=== PATIENT | female | born 1955 | race Two or more races ===

== ENCOUNTER 2019-12-17 08:36 | Outpatient (REF) | payer MEDICARE, MEDICAID, SELFPAY ==
[2019-12-17 09:42] LABS: MANUAL DIFF FLAG NO
[2019-12-17 09:44] LABS: Basophils Absolute Auto 0.1 X10*3/uL (0.0-0.2); Basophils Percent Auto 0.9 % (0-2); Eosinophils Absolute Auto 0.1 X10*3/uL (0.0-0.4); Eosinophils Percent Auto 0.9 % (0-4); Hematocrit 33.4 % (37-47); Hemoglobin 10.8 g/dl (12.0-16.0); Imm Gran Abs Auto 0.05 X10*3/uL (0.00-0.03); Imm Gran Pct Auto 0.7 % (0.0-0.4); Lymphocytes Absolute Auto 1.8 X10*3/uL (1.2-4.9); Lymphocytes Percent Auto 24.6 % (20-40); Mean Corpuscular HGB Conc 32.3 g/dl (31.0-35.0); Mean Corpuscular Hemoglobin 31.5 pg (27.0-33.0); Mean Corpuscular Volume 97.4 fL (80-98); Mean Platelet Volume 9.2 fL (9.4-12.3); Monocytes Absolute Auto 0.7 X10*3/uL (0.1-1.2); Monocytes Percent Auto 9.4 % (2-11); Neutrophils Absolute Auto 4.7 X10*3/uL (2.0-8.3); Neutrophils Percent Auto 63.5 % (45-73); Platelet Count 371 X10*3/uL (160-400); Red Blood Count 3.43 X10*6/uL (4.20-5.50); Red Cell Distribution Width 14.8 % (11.0-16.0); White Blood Count 7.4 X10*3/uL (4.8-10.8)
[2019-12-17 10:24] LABS: Anion Gap 13 (12-20); Blood Urea Nitrogen 21 mg/dL (9-16); Calcium 9.8 mg/dL (8.4-10.2); Carbon Dioxide 27 mmol/L (22-29); Chloride 104 mmol/L (96-108); Estimated Glomerular Filt Rate 41; Glucose Fasting 105 mg/dL (60-99); Potassium 4.6 mmol/l (3.3-5.1); Sodium 139 mmol/L (135-145)
[2019-12-17 10:25] LABS: Estimated Average Glucose 157 mg/dL; Hemoglobin A1c % 7.1 %
== END 2019-12-17 08:37 | disposition home or self-care (01) ==
LOC: HO.LAB 08:36
PROVIDERS: PCP Internal Medicine; Visit Provider Nurse Practitioner Family
DX: Z20.818 Contact with and (suspected) exposure to other bacterial communicable diseases (principal)
CPT/HCPCS: 36415; 80048; 83036; 85025

== ENCOUNTER 2020-04-15 08:35 | Outpatient (REF) | payer MEDICARE, MEDICAID, SELFPAY ==
[2020-04-15 09:20] LABS: MANUAL DIFF FLAG NO
[2020-04-15 09:24] LABS: Basophils Percent Auto 0.8 % (0-2); Eosinophils Absolute Auto 0.1 X10*3/uL (0.0-0.4); Eosinophils Percent Auto 1.8 % (0-4); Hematocrit 30.6 % (37-47); Hemoglobin 9.9 g/dl (12.0-16.0); Imm Gran Abs Auto 0.05 X10*3/uL (0.00-0.03); Imm Gran Pct Auto 1.3 % (0.0-0.4); Lymphocytes Absolute Auto 1.4 X10*3/uL (1.2-4.9); Lymphocytes Percent Auto 34.7 % (20-40); Mean Corpuscular HGB Conc 32.4 g/dl (31.0-35.0); Mean Corpuscular Hemoglobin 30.8 pg (27.0-33.0); Mean Corpuscular Volume 95.3 fL (80-98); Monocytes Absolute Auto 0.6 X10*3/uL (0.1-1.2); Monocytes Percent Auto 14.9 % (2-11); Neutrophils Absolute Auto 1.8 X10*3/uL (2.0-8.3); Neutrophils Percent Auto 46.5 % (45-73); Platelet Count 298 X10*3/uL (160-400); Red Blood Count 3.21 X10*6/uL (4.20-5.50); Red Cell Distribution Width 16.3 % (11.0-16.0)
[2020-04-15 09:56] LABS: Alanine Aminotransferase 12 U/L (0-31); Albumin Level 4.2 g/dL (3.5-5.0); Alkaline Phosphatase 138 U/L (39-117); Anion Gap 13 (12-20); Aspartate Amino Transferase 19 U/L (5-31); Bilirubin Total 0.5 mg/dL (0.0-1.0); Blood Urea Nitrogen 27 mg/dL (9-16); Calcium 9.7 mg/dL (8.4-10.2); Carbon Dioxide 26 mmol/L (22-29); Chloride 104 mmol/L (96-108); Cholesterol 225 mg/dL; Estimated Glomerular Filt Rate 42; Glucose Fasting 143 mg/dL (60-99); HDL Cholesterol 40 mg/dL; LDL Cholesterol Calculated 150 mg/dl; Potassium 4.3 mmol/L (3.3-5.1); Sodium 139 mmol/L (135-145); Total Protein 7.3 g/dL (6.5-8.0); Triglycerides 176 mg/dL
== END 2020-04-15 08:36 | disposition home or self-care (01) ==
LOC: HO.LAB 08:35
PROVIDERS: PCP Internal Medicine; Visit Provider Internal Medicine
DX: E11.9 Type 2 diabetes mellitus without complications (principal); C55 Malignant neoplasm of uterus, part unspecified; E78.00 Pure hypercholesterolemia, unspecified
CPT/HCPCS: 36415; 80053; 80061; 85025

== ENCOUNTER → 2020-09-17 08:49 | Outpatient (BNVA) | payer MEDICARE, MEDICAID, SELFPAY | PROVIDERS: PCP Internal Medicine; Visit Provider Urology | DX: N20.0 Calculus of kidney (principal) | CPT/HCPCS: 99202 ==

== ENCOUNTER 2021-01-19 06:51 | Outpatient (REF) | payer MEDICARE, MEDICAID, SELFPAY ==
[2021-01-19 07:09] LABS: MANUAL DIFF FLAG NO
[2021-01-19 07:19] LABS: Basophils Percent Auto 0.5 % (0-2); Eosinophils Absolute Auto 0.1 X10*3/uL (0.0-0.4); Eosinophils Percent Auto 1.2 % (0-4); Hematocrit 31.4 % (37.0-47.0); Hemoglobin 10.3 g/dl (12.0-16.0); Imm Gran Abs Auto 0.02 X10*3/uL (0.00-0.03); Imm Gran Pct Auto 0.3 % (0.0-0.4); Lymphocytes Absolute Auto 0.7 X10*3/uL (1.2-4.9); Lymphocytes Percent Auto 12.5 % (20-40); Mean Corpuscular HGB Conc 32.8 g/dl (31.0-35.0); Mean Corpuscular Hemoglobin 33.4 pg (27.0-33.0); Mean Corpuscular Volume 101.9 fL (80.0-98.0); Mean Platelet Volume 8.9 fL (9.4-12.3); Monocytes Absolute Auto 0.4 X10*3/uL (0.1-1.2); Monocytes Percent Auto 7.4 % (2-11); Neutrophils Absolute Auto 4.6 x10*3/uL (2.0-8.3); Neutrophils Percent Auto 78.1 % (45-73); Platelet Count 202 X10*3/uL (160-400); Red Blood Count 3.08 X10*6/uL (4.20-5.50); Red Cell Distribution Width 12.4 % (11.0-16.0); White Blood Count 5.9 X10*3/uL (4.8-10.8)
[2021-01-19 07:39] LABS: Alanine Aminotransferase 15 U/L (0-31); Alkaline Phosphatase 119 U/L (39-117); Anion Gap 13 (12-20); Aspartate Amino Transferase 24 U/L (5-31); Bilirubin Total 0.7 mg/dL (0.0-1.0); Blood Urea Nitrogen 26 mg/dL (9-16); Calcium 9.6 mg/dL (8.4-10.2); Carbon Dioxide 25 mmol/L (22-29); Chloride 105 mmol/L (96-108); Cholesterol 164 mg/dL; Estimated Glomerular Filt Rate 41; Glucose Fasting 135 mg/dL (60-99); HDL Cholesterol 47 mg/dL; LDL Cholesterol Calculated 104 mg/dl; Potassium 4.3 mmol/L (3.3-5.1); Sodium 139 mmol/L (135-145); Total Protein 6.8 g/dL (6.5-8.0); Triglycerides 68 mg/dL
[2021-01-19 09:18] LABS: Creatinine Urine 180.53 mg/dL; Microalbum/Creatinine Ratio Ur 32.6 ug/mg cr
[2021-01-23 13:20] LABS: Vitamin D 25-OH, D2 <4 ng/mL; Vitamin D 25-OH, D3 35 ng/mL; Vitamin D 25-OH, Total 35 ng/mL (30-100)
== END 2021-01-19 06:52 | disposition home or self-care (01) ==
LOC: HO.LAB 06:51
PROVIDERS: PCP Internal Medicine; Visit Provider Internal Medicine
DX: E11.65 Type 2 diabetes mellitus with hyperglycemia (principal); E78.5 Hyperlipidemia, unspecified; E55.9 Vitamin D deficiency, unspecified; D64.9 Anemia, unspecified; Z79.4 Long term (current) use of insulin
CPT/HCPCS: 36415; 80053; 80061; 82043; 82306; 85025

== ENCOUNTER 2021-05-23 11:03 | Emergency (ER) | payer MEDICARE, MEDICAID, SELFPAY ==
--- NOTE | ~2021-05-23 | US_ITS ---
EXAMINATION: US VENOUS ULTRASOUND WITH DOPPLER LOWER EXTREMITY, BILATERAL CLINICAL INFORMATION: Bilateral lower extremity swelling with history of uterine cancer. COMPARISON: None TECHNIQUE: Ultrasound of the deep veins is performed from the hip to the calf with compression sonography and color and pulse Doppler assessment. Spectral analysis with color-flow imaging is performed. FINDINGS: RIGHT: There is normal venous compression and respiratory variation and augmented flow. The visualized common femoral vein, superficial femoral vein, profunda femoral vein, popliteal vein, and the trifurcation region shows no evidence of deep venous thrombosis. There is no significant popliteal fossa cyst. No popliteal artery aneurysm. LEFT: There is normal venous compression and respiratory variation and augmented flow. The visualized common femoral vein, superficial femoral vein, profunda femoral vein, popliteal vein, and the trifurcation region shows no evidence of deep venous thrombosis. There is no significant popliteal fossa cyst. Artery aneurysm. US/US venous duplex LE BI IMPRESSION: No acute DVT demonstrated in the bilateral lower extremity.
--- NOTE | ~2021-05-23 | CT_ITS ---
EXAMINATION: CT ANGIOGRAM OF THE CHEST WITH AND WITHOUT CONTRAST (CT PULMONARY ANGIOGRAM FOR PE) CLINICAL INFORMATION: Reason for Exam lower extremity edema elevated D-dimer COMPARISON: None TECHNIQUE: Prior to contrast administration, noncontrast localization images were obtained. Subsequently, multidetector volumetric imaging was performed from the thoracic inlet to below the diaphragms following the administration of 80 mL Omnipaque 350 intravenous contrast. No contrast reaction reported Sagittal, coronal, and MIP oblique sagittal reformatted images were obtained on the CT workstation, uploaded to PACS, and reviewed. This CT examination was performed using dose optimization techniques as appropriate, variously including the following: *Automated exposure control *Adjustment of mA and/or kV according to patient size (this includes techniques or standardized protocols for targeted exams where dose is matched to indication/reason for exam; i.e. extremities or head) *Use of iterative reconstruction technique Total exam dose-length product 603 mGy-cm FINDINGS: QUALITY OF STUDY/CONTRAST BOLUS: Satisfactory. PULMONARY ARTERIES: No central or segmental pulmonary emboli. THORACIC AORTA: No aneurysm or dissection. LUNG: No focal consolidation, nodules or masses. PLEURA: No pleural effusion or pneumothorax. MEDIASTINUM: Normal heart size. No pericardial effusion. No hilar or mediastinal lymphadenopathy. No evidence of septal bowing or right heart strain. CHEST WALL/AXILLA: No axillary or internal mammary lymphadenopathy. OSSEOUS STRUCTURES: No acute or suspicious osseous abnormality. UPPER ABDOMEN: Unremarkable. No reflux of contrast into the hepatic veins to suggest elevated right heart pressures. CT/CT angio chest PE protocol IMPRESSION: No evidence of pulmonary embolism. Clear lungs and unremarkable mediastinum VTE: negative
--- NOTE | ~2021-05-23 | XR_ITS ---
EXAMINATION: XR CHEST CLINICAL INFORMATION: Lower extremity swelling COMPARISON: June 22, 2018 TECHNIQUE: 2 views of the chest were obtained. FINDINGS: No significant abnormality is noted involving the heart, lungs, mediastinum, bony thorax or soft tissues. XR/XR chest 2V IMPRESSION: No acute disease.
[2021-05-23 11:07] VITALS: BP 136/64; PULSE 71; RESP 18; TEMP 36.4; O2SAT 100; BMI 38.3
--- NOTE | 2021-05-23 11:38 | ECG_ITS ---
Test Reason : LOWER LEG SWELLING Blood Pressure : / mmHG Vent. Rate : 060 BPM Atrial Rate : 060 BPM P-R Int : 156 ms QRS Dur : 088 ms QT Int : 422 ms P-R-T Axes : 044 000 015 degrees QTc Int : 422 ms Normal sinus rhythm Normal ECG When compared with ECG of 22-JAN-2017 10:38, No significant change was found Referred By: Soraya Lamar Electronically Signed By:Scott Campbell
[2021-05-23 11:58] LABS: MANUAL DIFF FLAG NO
[2021-05-23 12:00] LABS: Basophils Percent Auto 0.2 % (0-2); Eosinophils Absolute Auto 0.1 X10*3/uL (0.0-0.4); Eosinophils Percent Auto 1.5 % (0-4); Hematocrit 29.4 % (37.0-47.0); Hemoglobin 9.6 g/dl (12.0-16.0); Imm Gran Abs Auto 0.01 X10*3/uL (0.00-0.03); Imm Gran Pct Auto 0.2 % (0.0-0.4); Lymphocytes Absolute Auto 0.6 X10*3/uL (1.2-4.9); Lymphocytes Percent Auto 13.6 % (20-40); Mean Corpuscular HGB Conc 32.7 g/dl (31.0-35.0); Mean Corpuscular Hemoglobin 33.4 pg (27.0-33.0); Mean Corpuscular Volume 102.4 fL (80.0-98.0); Mean Platelet Volume 8.9 fL (9.4-12.3); Monocytes Absolute Auto 0.4 X10*3/uL (0.1-1.2); Monocytes Percent Auto 9.7 % (2-11); Neutrophils Absolute Auto 3.1 x10*3/uL (2.0-8.3); Neutrophils Percent Auto 74.8 % (45-73); Platelet Count 191 X10*3/uL (160-400); Red Blood Count 2.87 X10*6/uL (4.20-5.50); Red Cell Distribution Width 12.2 % (11.0-16.0); White Blood Count 4.1 X10*3/uL (4.8-10.8)
--- NOTE | 2021-05-23 12:06 | ED_ITS ---
HPI - Extremity Problem General Chief complaint: Extremity Problem Stated complaint: both legs and feet swollen Time Seen by Provider: 05/23/21 11:19 Source: patient Mode of arrival: ambulatory Limitations: language barrier ( Maltese-speaking) History of Present Illness HPI Narrative: 66-year-old female with a past medical history of hypertension, diabetes type 2 on long-term current use of insulin, pure hypercholesterolemia, GERD, constipation and uterine cancer status post hysterectomy with radiation and ch emo x1 year ago presenting to the ED with complaints of bilateral lower extremity edema for the past 5 days and weight gain. She reports that years ago she remembers being on Lasix although she has not been on that for a while. She is unaware if she has a history of CHF. She denies any fevers, chills, dizziness, headaches, neck pain / stiffness, trouble swallowing or breathing, chest pain or shortness of breath, dyspnea on exertion, orthopnea, palpitation, paresthesias, nausea/vomiting/ diarrhea constipation, black or bloody stools, abdominal distention or abdominal pain, recent travel or sick contacts, recent immobilization or surgery, rashes, recent falls or any other symptoms complaints or concerns at this time. MD Complaint: extremity swelling Onset (ago): day(s) (5) Pain Consistency: constant Location: left, right and lower extremity Radiation: none Relieving factors: nothing Exacerbating factors: nothing Associated symptoms: denies other symptoms Context: other ( history of uterine cancer status post hysterectomy radiation and chemo x1 year ago in remission) Related Data Home Medications Medication Instructions Recorded Confirmed albuterol sulfate 90 mcg/actuation INHALATION 11/15/19 01/22/21 aerosol inhaler cholecalciferol (vitamin D3) 50 50 mcg PO DAILY 11/15/19 01/22/21 mcg (2,000 unit) capsule cyanocobalamin (vitamin B-12) 1,000 mcg PO DAILY 11/15/19 01/22/21 1,000 mcg tablet insulin glargine 100 unit/mL (3 60 unit SUBCUT QAM 11/15/19 01/22/21 mL) subcutaneous pen lancets 30 gauge #100 ea 11/15/19 01/22/21 pen needle, diabetic 32 gauge x #50 ea 11/15/19 01/22/21 1/4 prochlorperazine maleate 10 mg mg PO 11/15/19 01/22/21 tablet sennosides 8.6 mg-docusate sodium 1 - 2 tab PO DAILY 11/15/19 01/22/21 50 mg tablet Previous Rx's Medication Instructions Recorded loratadine 10 mg tablet 10 mg PO DAILY #30 tab 01/08/20 blood-glucose meter (FreeStyle #1 ea 04/22/20 [place]) lancets 28 gauge (FreeStyle #100 ea 04/22/20 Lancets) tramadol 50 mg tablet 50 mg PO .every 6 hours PRN 30 05/26/20 Days #120 tab atorvastatin 80 mg tablet 80 mg PO DAILY 90 Days #90 tab 11/04/20 blood sugar diagnostic (FreeStyle #100 ea 01/14/21 Test) lactulose 10 gram/15 mL oral 15 ml PO DAILY #473 ml 01/14/21 solution lancets 28 gauge (FreeStyle #100 ea 01/14/21 Lancets) blood-glucose meter (OneTouch #1 ea 01/22/21 Verio Flex meter) nystatin 100,000 unit/gram topical 1 appl TOPICAL DAILY 90 Days #15 g 01/22/21 cream albuterol sulfate 2.5 mg (3 mL) INHALATION TID 90 02/06/21 Days #810 ml aspirin 81 mg tablet,delayed 81 mg PO DAILY #30 tab 02/06/21 release fluticasone propionate 50 1 spray INTRANASAL DAILY 30 Days 02/06/21 mcg/actuation nasal #16 ml spray,suspension lisinopril 40 mg tablet 40 mg PO DAILY #30 tab 02/06/21 omeprazole 20 mg capsule,delayed 20 mg PO DAILY #30 cap 02/06/21 release ketoprofen 25 mg capsule 25 mg PO QID PRN 30 Days #120 cap 02/11/21 ezetimibe 10 mg tablet 10 mg PO DAILY 90 Days #90 tab 04/03/21 ferrous sulfate 325 mg (65 mg 325 mg PO DAILY 90 Days #90 tab 04/03/21 iron) tablet sennosides 8.6 mg tablet 17.2 mg PO BEDTIME PRN 90 Days #90 04/03/21 tab ondansetron 4 mg disintegrating 4 mg PO Q8H PRN #90 ea 05/02/21 tablet pioglitazone 45 mg tablet 45 mg PO DAILY #30 tab 05/02/21 Allergies Allergy/AdvReac Type Severity Reaction Status Date / Time naproxen Allergy Intermediate stomach Verified 05/23/21 11:11 upset pravastatin [PRAVASTATIN] Allergy Intermediate RASH Verified 05/23/21 11:11 Review of Systems Review of Systems: Constitutional : + weight gain, No Weight loss, No Fever, No Chills, No Night Sweats, No Fatigue, No Malaise ENT/Mouth : No Hearing loss, No Ear Pain, No Nasal Congestion, No Sinus Pain, No Hoarseness, No sore throat, No Rhinorrhea, No Swallowing Difficulty Eyes: No Eye Pain, No Swelling, No Redness, No Foreign Body, No Discharge, No Vi carie Changes Cardiovascular : No Chest Pain, No SOB, No Dyspnea on Exertion, No Orthopnea, No Edema, No Palpitations Respiratory : No Cough, No Sputum, No Wheezing, No Smoke Exposure, No Dyspnea Gastrointestinal : No Nausea, No Vomiting, No Diarrhea, No Constipation, No abdominal Pain, No Hematochezia, No Melena Genitourinary : no irregular bleeding, No Dysuria, No Urinary Frequency, No Hematuria, No Urinary Incontinence, No Urgency, No Flank Pain, No Urinary Flow Changes, No Hesitancy Musculoskeletal : +bilateral lower extremity edema, No joint pain, No Myalgias, No Joint Swelling Skin : No Skin Lesions, No rash Neuro : No Weakness, No Numbness, No Paresthesias, No Loss of Consciousness, No Dizziness, No Headache Psych : No Anxiety/Panic, No Depression, No SI/HI/AH/VH, No Social Issues, Heme/Lymph: No Bruising, No Bleeding,No Lymphadenopathy Endocrine : No Polyuria, No Polydipsia, No Temperature Intolerance Yes all other systems are reviewed and are negative [facility] Past Medical History Attestation statement: The following information was validated with the patient. Medical History Anxiety disorder Arthritis Asthma Chronic constipation Chronic kidney disease Diabetes mellitus Diverticulosis Essential hypertension GERD (gastroesophageal reflux disease) Hyperlipidemia Hypertension Lesion of pancreas Migraine headache Postmenopausal Pure hypercholesterolemia Renal calculi Thyroid nodule Type 2 diabetes mellitus Uterine cancer Surgical History History of section History of colonoscopy History of hernia repair History of hysterectomy for malignancy History of lithotripsy Hx of cholecystectomy Hx of endoscopy Family History Family History Father History of coronary artery disease History of diabetes mellitus, type II History of cancer Mother History of hypertension Social History Social History Housing: Apartment Alcohol intake: never Patient Tobacco Use Status: Former Tobacco user Tobacco use type: Cigarette e-Cigarette/Vaping Use: Never Used Second Hand Smoke Exposure: No Advance Directives: No Advance Directives Information Provided: Yes service: No Current occupational status: unemployed and disabled Physical Exam Vital Signs: Vital Signs: Last Vital Signs Temp 97.6 F 05/23/21 11:07 Pulse 57 05/23/21 12:10 Resp 18 05/23/21 12:10 BP 105/51 L 05/23/21 12:10 Pulse Ox 100 05/23/21 12:10 BMI result Body Mass Index 38.3 vital signs have been reviewed as normal and appeared to be correct. Blood pressure normal. Heart rate normal. Respiration rate normal. Temperature normal. Oxygen saturation normal. Appearance: Alert. Oriented X3. No acute distress. Head: Normal external exam. Normocephalic. Atraumatic. Eyes: PERRLA. EOMI. Conjunctiva and sclera normal. Eyelids normal. ENT: Pharynx normal. Uvula midline. Moist mucous membranes. No lesions/ulcerations or masses noted on the tongue. Normal voice. No trismus noted. No drooling noted. No muffled voice noted. Neck: Normal inspection. Neck supple. FROM. No adenopathy. Thyroid Normal. No tracheal deviation noted. No crepitus is noted. No meningeal signs. No neck mass noted. No signs of trauma noted. CVS: Normal heart rate and rhythm. Heart sound normal. Pulses normal throughout. No murmurs/rales/gallops. Respiratory: No respiratory distress. Painless inspiration. Breath sounds normal. No wheezes/rales/rhonchi noted. Chest nontender. No crepitus is noted. No signs of trauma noted. No accessory muscle usage noted or decreased air movement noted. No signs of trauma. Abdomen: Soft and nontender. Bowel sounds normal in all 4 quadrants. No distention noted. No organomegaly noted. No visible injury noted. Back: No CVA tenderness. Full range of motion noted. Nontender. No signs of trauma. Patient neuro intact bilaterally and distally on all 4 extremities. Patient's reflexes intact bilaterally and distally on all 4 extremities. No rashes/lesion/induration/fluctuance or signs of infection noted. Skin: Skin warm and dry. Normal skin color. Normal skin turgor. No rashes/lesions/lacerations noted. Extremities: Patient with bilateral +3 pitting edema To lower extremities. No calf tenderness is noted. Extremities exhibit normal range of motion and nontender. Neuro: Oriented X 3. No motor deficit. No sensory deficit. Reflexes normal. Normal steady gait. No focal neuro deficits noted. CN's II-XII intact bilaterally? Vascular: + radial pulses/+ 2 distal pedal pulses/+2 dorsalis pedis b/l. Normal cap refill. No cyanosis noted to upper extremity nails and lower extremity toes nails. Course Course Course Narrative: 11:40am - 66-year-old female with a past medical history of hypertension, diabetes type 2 on long-term current use of insulin, pure hypercholesterolemia, GERD, c onstipation and uterine cancer status post hysterectomy with radiation and chemo x1 year ago presenting to the ED with complaints of bilateral lower extremity edema for the past 5 days and weight gain. She reports that years ago she remembers being on Lasix although she has not been on that for a while. She is unaware if she has a history of CHF. Plan: Labs, EKG, chest x-ray, venous duplex ultrasound of bilateral extremity then re-evaluate. Reevaluation(s) Reevaluation #1: - labs reviewed patient with white blood cell count at 4 it appears that this is chronic for the patient. Mild baseline anemia with an H&H of 9.6/29.4 which is similar when compared to prior. D-dimer 377. BUN/creatinine 27/1.52 this is new when compared to prior. Random glucose 207. BNP 93. Total protein 6.3. Otherwise all other labs are within normal limits. Patient negative for COVID. EKG within normal limits no acute processes noted similar compared to prior. - Therefore due to normal BNP and patient with mild BENNIE will give a L of IV fluids. Awaiting chest x-ray, CT of chest for PE and bilateral duplex ultrasound of lower extremity. Time: 12:33 Reevaluation #2: -Sign out to HENRIQUE Molina pending chest x-ray/ CT of chest for PE and duplex ultrasound of bilateral lower extremity. Time: 12:56 MDM - Extremity (Nontraumatic) Lab Data Attestation: I reviewed the patient's lab results. Result diagrams: 05/23/21 11:52 05/23/21 11:52 Labs: Lab Results 05/23/21 05/23/21 05/23/21 Range/Units 11:52 11:52 11:52 WBC 4.1 L (4.8-10.8) X10*3/uL RBC 2.87 L (4.20-5.50) X10*6/uL Hgb 9.6 L (12.0-16.0) g/dl Hct 29.4 L (37.0-47.0) % MCV 102.4 H (80.0-98.0) fL MCH 33.4 H (27.0-33.0) pg MCHC 32.7 (31.0-35.0) g/dl RDW 12.2 (11.0-16.0) % Plt Count 191 (160-400) X10*3/uL MPV 8.9 L (9.4-12.3) fL Immature Gran % (Auto) 0.2 (0.0-0.4) % Neut % (Auto) 74.8 H (45-73) % Lymph % (Auto) 13.6 L (20-40) % Pickett % (Auto) 9.7 (2-11) % Eos % (Auto) 1.5 (0-4) % Baso % (Auto) 0.2 (0-2) % Lymph # (Auto) 0.6 L (1.2-4.9) X10*3/uL [place]ett # (Auto) 0.4 (0.1-1.2) X10*3/uL Eos # (Auto) 0.1 (0.0-0.4) X10*3/uL Baso # (Auto) 0.0 (0.0-0.2) X10*3/uL Abs Immat Gran (auto) 0.01 (0.00-0.03) X10*3/uL Absolute Neuts (auto) 3.1 (2.0-8.3) x10*3/uL Absolute Nucleated RBC 0.000 (0.0-0.012) X10*3/uL Nucleated RBC % (auto) 0.0 (0.0-0.2) /100WBC Hold Purple Top PT 11.9 (9.9-13.0) SEC INR 1.0 (0.9-1.1) D-Dimer High Sensitivty NG/ML Sodium 139 (135-145) mmol/L Potassium 4.2 (3.3-5.1) mmol/L Chloride 106 (96-108) mmol/L Carbon Dioxide 24 (22-29) mmol/L Anion Gap 13 (12-20) BUN 27 H (9-16) mg/dL Creatinine 1.52 H (0.5-1.4) mg/dL Estim Creat Clear Calc 42.5 Estimated GFR 34 Random Glucose 207 H (60-115) mg/dL Calcium 9.1 (8.4-10.2) mg/dL Magnesium 1.7 (1.6-2.6) mg/dL Total Bilirubin 0.7 (0.0-1.0) mg/dL AST 20 (5-31) U/L ALT 14 (0-31) U/L Alkaline Phosphatase 99 (39-117) U/L B-Natriuretic Peptide (<100) pg/mL Total Protein 6.3 L (6.5-8.0) g/dL Albumin 3.7 (3.5-5.0) g/dL COVID-19 (REECE) (Negative) COVID-19 Clin Com 05/23/21 05/23/21 05/23/21 Range/Units 11:52 11:52 11:52 WBC (4.8-10.8) X10*3/uL RBC (4.20-5.50) X10*6/uL Hgb (12.0-16.0) g/dl Hct (37.0-47.0) % MCV (80.0-98.0) fL MCH (27.0-33.0) pg MCHC (31.0-35.0) g/dl RDW (11.0-16.0) % Plt Count (160-400) X10*3/uL MPV (9.4-12.3) fL Immature Gran % (Auto) (0.0-0.4) % Neut % (Auto) (45-73) % Lymph % (Auto) (20-40) % Pickett % (Auto) (2-11) % Eos % (Auto) (0-4) % Baso % (Auto) (0-2) % Lymph # (Auto) (1.2-4.9) X10*3/uL [place]ett # (Auto) (0.1-1.2) X10*3/uL Eos # (Auto) (0.0-0.4) X10*3/uL Baso # (Auto) (0.0-0.2) X10*3/uL Abs Immat Gran (auto) (0.00-0.03) X10*3/uL Absolute Neuts (auto) (2.0-8.3) x10*3/uL Absolute Nucleated RBC (0.0-0.012) X10*3/uL Nucleated RBC % (auto) (0.0-0.2) /100WBC Hold Purple Top SEE NOTE PT (9.9-13.0) SEC INR (0.9-1.1) D-Dimer High Sensitivty 377 NG/ML Sodium (135-145) mmol/L Potassium (3.3-5.1) mmol/L Chloride (96-108) mmol/L Carbon Dioxide (22-29) mmol/L Anion Gap (12-20) BUN (9-16) mg/dL Creatinine (0.5-1.4) mg/dL Estim Creat Clear Calc Estimated GFR Random Glucose (60-115) mg/dL Calcium (8.4-10.2) mg/dL Magnesium (1.6-2.6) mg/dL Total Bilirubin (0.0-1.0) mg/dL AST (5-31) U/L ALT (0-31) U/L Alkaline Phosphatase (39-117) U/L B-Natriuretic Peptide 93 (<100) pg/mL Total Protein (6.5-8.0) g/dL Albumin (3.5-5.0) g/dL COVID-19 (REECE) (Negative) COVID-19 Clin Com 05/23/21 Range/Units 11:52 WBC (4.8-10.8) X10*3/uL RBC (4.20-5.50) X10*6/uL Hgb (12.0-16.0) g/dl Hct (37.0-47.0) % MCV (80.0-98.0) fL MCH (27.0-33.0) pg MCHC (31.0-35.0) g/dl RDW (11.0-16.0) % Plt Count (160-400) X10*3/uL MPV (9.4-12.3) fL Immature Gran % (Auto) (0.0-0.4) % Neut % (Auto) (45-73) % Lymph % (Auto) (20-40) % [place] % (Auto) (2-11) % Eos % (Auto) (0-4) % Baso % (Auto) (0-2) % Lymph # (Auto) (1.2-4.9) X10*3/uL [place] # (Auto) (0.1-1.2) X10*3/uL Eos # (Auto) (0.0-0.4) X10*3/uL Baso # (Auto) (0.0-0.2) X10*3/uL Abs Immat Gran (auto) (0.00-0.03) X10*3/uL Absolute Neuts (auto) (2.0-8.3) x10*3/uL Absolute Nucleated RBC (0.0-0.012) X10*3/uL Nucleated RBC % (auto) (0.0-0.2) /100WBC Hold Purple Top PT (9.9-13.0) SEC INR (0.9-1.1) D-Dimer High Sensitivty NG/ML Sodium (135-145) mmol/L Potassium (3.3-5.1) mmol/L Chloride (96-108) mmol/L Carbon Dioxide (22-29) mmol/L Anion Gap (12-20) BUN (9-16) mg/dL Creatinine (0.5-1.4) mg/dL Estim Creat Clear Calc Estimated GFR Random Glucose (60-115) mg/dL Calcium (8.4-10.2) mg/dL Magnesium (1.6-2.6) mg/dL Total Bilirubin (0.0-1.0) mg/dL AST (5-31) U/L ALT (0-31) U/L Alkaline Phosphatase (39-117) U/L B-Natriuretic Peptide (<100) pg/mL Total Protein (6.5-8.0) g/dL Albumin (3.5-5.0) g/dL COVID-19 (REECE) Negative (Negative) COVID-19 Clin Com See Note ECG Data Attestation EKG: I personally reviewed and interpreted this ECG as follows: ECG interpretation date: 05/23/21 ECG interpretation time: 11:52 Interpretation: Normal sinus rhythm with a ventricular rate of 60 with a normal SC interval normal QRS duration normal QT/ QTC interval. No acute ischemic change are noted. Similar compared to prior EKG 01/22/2017. Critical Care Time Critical Care Time Critical Care Time: Yes Total Critical Care Time: 60 Attestation: I personally attest to this time spent taking care of the patient Discharge Plan Discharge Clinical Impression: Bilateral edema of lower extremity, BENNIE (acute kidney injury) Patient Disposition: Still a Patient Prescriptions: No Action loratadine 10 mg tablet 10 mg PO DAILY Qty: 30 9RF tramadol 50 mg tablet 50 mg PO .every 6 hours PRN (Reason: pain) 30 Days Qty: 120 0RF atorvastatin 80 mg tablet 80 mg PO DAILY 90 Days Qty: 90 3RF aspirin 81 mg tablet,delayed release (DR/EC) 81 mg PO DAILY Qty: 30 11RF lisinopril 40 mg tablet 40 mg PO DAILY Qty: 30 6RF omeprazole 20 mg capsule,delayed release(DR/EC) 20 mg PO DAILY Qty: 30 6RF albuterol sulfate 2.5 mg /3 mL (0.083 %) solution for nebulization 2.5 mg inhalation TID 90 Days Qty: 810 1RF fluticasone propionate 50 mcg/actuation spray,suspension 1 spray intranasal DAILY 30 Days Qty: 16 3RF ketoprofen 25 mg capsule 25 mg PO QID PRN (Reason: pain) 30 Days Qty: 120 5RF sennosides 8.6 mg tablet 17.2 mg PO BEDTIME PRN (Reason: constipation) 90 Days Qty: 90 1RF ezetimibe 10 mg tablet 10 mg PO DAILY 90 Days Qty: 90 3RF ferrous sulfate 325 mg (65 mg iron) tablet 325 mg PO DAILY 90 Days Qty: 90 3RF ondansetron 4 mg tablet,disintegrating 4 mg PO Q8H PRN (Reason: for nausea/vomiting) Qty: 90 2RF pioglitazone 45 mg tablet 45 mg PO DAILY Qty: 30 5RF (DME) blood-glucose meter [OneTouch Verio Flex meter] Misc See Rx Instructions .Route Qty: 1 0RF Rx Instructions: As directed nystatin 100,000 unit/gram cream 1 appl topical DAILY 90 Days Qty: 15 1RF (DME) blood-glucose meter [FreeStyle [place]] Kit See Rx Instructions .ROUTE .MEDSUPPLY Qty: 1 0RF Rx Instructions: As directed (DME) lancets [FreeStyle Lancets] 28 gauge misc See Rx Instructions .ROUTE .MEDSUPPLY Qty: 100 0RF Rx Instructions: As directed (DME) FreeStyle Test Strip See Rx Instructions .ROUTE .MEDSUPPLY Qty: 100 10RF Rx Instructions: Use 1 test strip three times a day (DME) lancets [FreeStyle Lancets] 28 gauge misc See Rx Instructions .Route Qty: 100 10RF Rx Instructions: Use 1 lancet three times a day lactulose 10 gram/15 mL solution 15 ml PO DAILY Qty: 473 0RF prochlorperazine maleate 10 mg tablet PO 0RF cholecalciferol (vitamin D3) 50 mcg (2,000 unit) capsule 50 mcg PO DAILY 0RF (DME) pen needle, diabetic 32 gauge x 1/4 needle See Rx Instructions ea .ROUTE .MEDSUPPLY Qty: 50 0RF Rx Instructions: As directed sennosides-docusate sodium 8.6-50 mg tablet 1 - 2 tab PO DAILY 0RF (DME) lancets 30 gauge misc See Rx Instructions gauge .ROUTE .MEDSUPPLY Qty: 100 0RF Rx Instructions: As directed albuterol sulfate 90 mcg/actuation HFA aerosol inhaler inhalation 0RF Lantus Solostar U-100 Insulin 100 unit/mL (3 mL) insulin pen 60 unit subcut QAM 0RF cyanocobalamin (vitamin B-12) 1,000 mcg tablet 1,000 mcg PO DAILY 0RF
[2021-05-23 12:09] LABS: D Dimer High Sensitivity 377 NG/ML
[2021-05-23 12:10] VITALS: BP 105/51; PULSE 57; RESP 18; O2SAT 100
[2021-05-23 12:11] LABS: COVID-19 Test Negative (Negative)
[2021-05-23 12:16] LABS: Prothrombin Time 11.9 SEC (9.9-13.0)
[2021-05-23 12:18] LABS: Alanine Aminotransferase 14 U/L (0-31); Albumin Level 3.7 g/dL (3.5-5.0); Alkaline Phosphatase 99 U/L (39-117); Anion Gap 13 (12-20); Aspartate Amino Transferase 20 U/L (5-31); Bilirubin Total 0.7 mg/dL (0.0-1.0); Blood Urea Nitrogen 27 mg/dL (9-16); Calcium 9.1 mg/dL (8.4-10.2); Carbon Dioxide 24 mmol/L (22-29); Chloride 106 mmol/L (96-108); Creatinine Clr Calc Pharmacy 42.5; Estimated Glomerular Filt Rate 34; Glucose Random 207 mg/dL (60-115); Magnesium 1.7 mg/dL (1.6-2.6); Potassium 4.2 mmol/L (3.3-5.1); Sodium 139 mmol/L (135-145); Total Protein 6.3 g/dL (6.5-8.0)
[2021-05-23 12:24] LABS: B Type Natriuretic Peptide 93 pg/mL (<100)
[2021-05-23] MEDS: 0.9 % Sodium Chloride 1,000 ML 999 ML IVCONT (13:50)
[2021-05-23 13:58] LABS: Appearance Urine CLEAR; Color Urine YELLOW; Glucose Urine UA NEG (NEG); Leukocyte Esterase Urine 1+ (NEG); Nitrite Urine NEG (NEG); PH 5.5 (5.0-8.0); Specific Gravity - Urine 1.025 (1.005-1.025); UACC Culture Trigger YES; Urine Blood 1+ (NEG); Urine Ketones NEG (NEG); Urine Protein NEG (NEG-TRACE)
[2021-05-23 14:27] LABS: Bacteria Urine 2+ /LPF; Mucus Urine TRACE /LPF; Squamous Epithelial Cell Urine TRACE /LPF
[2021-05-23 15:06] VITALS: BP 124/67; PULSE 56; RESP 18; TEMP 36.7; O2SAT 100
[2021-05-23] MEDS: iohexoL 350 MG/ML 100 ML INFUS..BTL IV (16:29)
[2021-05-23 17:50] LABS: Glucose, Whole Blood 67 mg/dL (60-115)
[2021-05-23] MEDS: 0.9 % Sodium Chloride 1,000 ML 999 ML IV (18:05)
[2021-05-23 18:11] VITALS: BP 127/70; PULSE 54; RESP 16; O2SAT 100
[2021-05-23 18:14] LABS: Glucose, Whole Blood 79 mg/dL (60-115)
[2021-05-23 19:23] VITALS: BP 120/83; PULSE 63; RESP 14; TEMP 36.1; O2SAT 98
== END 2021-05-23 19:25 | disposition home or self-care (01) ==
PROVIDERS: Physician Assistant; Physician Assistant Medical; Emergency Provider Emergency Medicine; PCP Internal Medicine
DX: R60.0 Localized edema (principal); N17.9 Acute kidney failure, unspecified; N39.0 Urinary tract infection, site not specified; R79.1 Abnormal coagulation profile; I12.9 Hypertensive chronic kidney disease with stage 1 through stage 4 chronic kidney disease, or unspecified chronic kidney disease; E11.22 Type 2 diabetes mellitus with diabetic chronic kidney disease; N18.9 Chronic kidney disease, unspecified; J45.909 Unspecified asthma, uncomplicated; Z79.4 Long term (current) use of insulin; Z85.42 Personal history of malignant neoplasm of other parts of uterus; Z92.21 Personal history of antineoplastic chemotherapy; Z92.3 Personal history of irradiation; Z90.710 Acquired absence of both cervix and uterus
CPT/HCPCS: 36415; 71046; 71275; 80053; 81001; 81003; 82947; 83735; 83880; 85025; 85379; 85610; 87086; 87088; 87186; 87635; 93005; 93970; 96360; 96361; 99284; 99291; Q9967

== ENCOUNTER 2021-06-22 12:43 | Outpatient (REF) | payer MEDICARE, SELFPAY ==
--- NOTE | ~2021-06-22 | MM_ITS ---
EXAMINATION: MM SCREENING DIGITAL BREAST TOMOSYNTHESIS, BILATERAL CLINICAL INFORMATION: Screening. Asymptomatic. The lifetime risk of breast cancer based on the Tyrer-Cuzick Model is 7%. COMPARISON: Mammography: 03/15/2018, 02/11/2017, 11/06/2015 TECHNIQUE: Digital breast tomosynthesis is performed in both the craniocaudal and mediolateral oblique views along with computer-aided detection (CAD). Synthesized 2D images are generated from the tomosynthesis. Additional left CC and left MLO views are obtained. FINDINGS: The breasts are almost entirely fatty (ACR BI-RADS breast composition Category a). Background stromal markings are normal and similar to prior exams. No developing density. There are no significant masses, abnormal calcifications, or other abnormalities. The axilla and skin contours are unremarkable. MM/MM tomosynthesis screening BI IMPRESSION: No mammographic evidence of malignancy. ASSESSMENT: BI-RADS 1: Negative RECOMMENDATION: Routine annual mammography screening. This patient's information was entered into a reminder system with a target due date for their next mammogram.
== END 2021-06-22 12:44 | disposition home or self-care (01) ==
LOC: HO.MAMMO 12:43
PROVIDERS: PCP Internal Medicine; Visit Provider Internal Medicine
DX: Z12.31 Encounter for screening mammogram for malignant neoplasm of breast (principal)
CPT/HCPCS: 77063; 77067

== ENCOUNTER 2021-09-17 14:11 | Outpatient (REF) | payer MEDICARE, MEDICAID, SELFPAY ==
--- NOTE | ~2021-09-17 | US_ITS ---
EXAMINATION: US RETROPERITONEAL LIMITED (RENAL ONLY) CLINICAL INFORMATION: Calculus of kidney. COMPARISON: US retroperitoneal limited (renal only) 08/17/2019 and 12/18/2018. CT abdomen and pelvis without contrast 08/17/2019. XR abdomen KUB 06/09/2016 and 04/28/2016. TECHNIQUE: Real-time imaging of the kidneys. FINDINGS: RIGHT KIDNEY: 9.8 x 4.1 x 4.5 cm (SAG x AP x TRV). The kidney is normal in size, contour, and echogenicity. Renal cortical thickness is normal. No hydronephrosis. At the upper pole, a 7 mm nonobstructing calculus is seen. At the interpolar aspect, a 4 mm nonobstructing calculus is seen. At the lower pole, an 8 mm nonobstructing calculus is seen. LEFT KIDNEY: 10.3 x 4.9 x 4.2 cm (SAG x AP x TRV). The kidney is normal in size, contour, and echogenicity. Renal cortical thickness is normal. No renal calculi or hydronephrosis. At the interpolar aspect, a 6 mm exophytic, benign, simple cyst is seen. US/US renal BI IMPRESSION: 1. Nonobstructing right renal calculi redemonstrated. No left renal calculus is seen. No hydronephrosis is seen bilaterally. 2. A simple left renal cyst is seen.
== END 2021-09-17 14:12 | disposition home or self-care (01) ==
LOC: HO.US 14:11
PROVIDERS: Visit Provider Urology
DX: N20.0 Calculus of kidney (principal)
CPT/HCPCS: 76775

== ENCOUNTER → 2021-09-22 09:20 | Outpatient (BNVA) | payer MEDICARE, MEDICAID, SELFPAY | PROVIDERS: PCP Internal Medicine | DX: N20.0 Calculus of kidney (principal) | CPT/HCPCS: 99212 ==

== ENCOUNTER 2022-03-30 08:10 | Outpatient (REF) | payer MEDICARE, MEDICAID, SELFPAY ==
[2022-03-30 08:31] LABS: MANUAL DIFF FLAG NO
[2022-03-30 09:06] LABS: Basophils Percent Auto 0.6 % (0-2); Eosinophils Absolute Auto 0.1 X10*3/uL (0.0-0.4); Eosinophils Percent Auto 2.3 % (0-4); Hematocrit 32.5 % (37.0-47.0); Hemoglobin 10.4 g/dl (12.0-16.0); Imm Gran Abs Auto 0.02 X10*3/uL (0.00-0.03); Imm Gran Pct Auto 0.4 % (0.0-0.4); Lymphocytes Absolute Auto 0.8 X10*3/uL (1.2-4.9); Lymphocytes Percent Auto 15.6 % (20-40); Mean Corpuscular Hemoglobin 33.5 pg (27.0-33.0); Mean Corpuscular Volume 104.8 fL (80.0-98.0); Mean Platelet Volume 9.1 fL (9.4-12.3); Monocytes Absolute Auto 0.5 X10*3/uL (0.1-1.2); Monocytes Percent Auto 10.7 % (2-11); Neutrophils Absolute Auto 3.4 x10*3/uL (2.0-8.3); Neutrophils Percent Auto 70.4 % (45-73); Platelet Count 262 X10*3/uL (160-400); Red Cell Distribution Width 12.7 % (11.0-16.0); White Blood Count 4.9 X10*3/uL (4.8-10.8)
[2022-03-30 09:47] LABS: Anion Gap 12 (12-20); Blood Urea Nitrogen 28 mg/dL (9-16); Carbon Dioxide 25 mmol/L (22-29); Chloride 105 mmol/L (96-108); Potassium 4.4 mmol/L (3.3-5.1); Sodium 138 mmol/L (135-145)
[2022-03-30 09:48] LABS: Alanine Aminotransferase 24 U/L (0-31); Albumin Level 3.8 g/dL (3.5-5.0); Alkaline Phosphatase 107 U/L (39-117); Aspartate Amino Transferase 34 U/L (5-31); Bilirubin Total 0.8 mg/dL (0.0-1.0); Calcium 9.2 mg/dL (8.4-10.2); Cholesterol 156 mg/dL; Estimated Glomerular Filt Rate 35; Glucose Fasting 119 mg/dL (60-99); HDL Cholesterol 43 mg/dL; Iron 87 mcg/dL (30-160); LDL Cholesterol Calculated 98 mg/dl; Percent Iron Saturation 31 % (15-50); Total Iron Binding Capacity 284 mcg/dL (228-428); Total Protein 6.5 g/dL (6.5-8.0); Triglycerides 75 mg/dL; Unsaturated Iron Binding 197 ug/dL
[2022-03-30 09:49] LABS: Creatinine Urine 129.74 mg/dL; Microalbum/Creatinine Ratio Ur 70.9 ug/mg cr
[2022-03-30 10:14] LABS: Folate 6.1 ng/mL (> or = 4.0); Vitamin B12 163 pg/mL (200-900); Vitamin D 25-OH Total 20.4 ng/mL (>30)
== END 2022-03-30 08:11 | disposition home or self-care (01) ==
LOC: HO.LAB 08:10
PROVIDERS: PCP Internal Medicine; Visit Provider Internal Medicine
DX: E11.22 Type 2 diabetes mellitus with diabetic chronic kidney disease (principal); N18.30 Chronic kidney disease, stage 3 unspecified; E78.5 Hyperlipidemia, unspecified; E53.8 Deficiency of other specified B group vitamins; D64.9 Anemia, unspecified; E55.9 Vitamin D deficiency, unspecified
CPT/HCPCS: 36415; 80053; 80061; 82043; 82306; 82607; 82746; 83540; 85025

== ENCOUNTER 2022-06-04 12:07 | Outpatient (REF) | payer MEDICARE, MEDICAID, SELFPAY ==
--- NOTE | ~2022-06-04 | US_ITS ---
EXAMINATION: US RETROPERITONEAL LIMITED (RENAL ONLY) CLINICAL INFORMATION: Hypertension. Chronic kidney disease. COMPARISON: Bilateral renal ultrasound dated 09/17/2021. CT abdomen and pelvis without contrast dated 08/17/2019. Renals only ultrasound dated 08/17/2019. TECHNIQUE: Real-time imaging of the kidneys. FINDINGS: RIGHT KIDNEY: 9.2 x 5.4 x 5.2 cm (SAG x AP x TRV). The kidney is normal in size, contour, and echogenicity. Renal cortical thickness is normal. No focal parenchymal lesions or hydronephrosis. 6 mm nonobstructing calculus in the midpole. 7 mm nonobstructing calculus in the upper pole. LEFT KIDNEY: 10.4 x 4.9 x 4.7 cm (SAG x AP x TRV). The kidney is normal in size, contour, and echogenicity. Renal cortical thickness is normal. No hydronephrosis. 9 mm simple cyst in the mid pole. No imaging follow-up is recommended. 7 mm nonobstructing calculus in the upper pole. US/US renal BI IMPRESSION: No hydronephrosis. Bilateral renal calculi.
== END 2022-06-04 12:08 | disposition home or self-care (01) ==
LOC: HO.US 12:07
PROVIDERS: Visit Provider Internal Medicine Nephrology
DX: E11.22 Type 2 diabetes mellitus with diabetic chronic kidney disease (principal); I12.9 Hypertensive chronic kidney disease with stage 1 through stage 4 chronic kidney disease, or unspecified chronic kidney disease; N18.31 Chronic kidney disease, stage 3a; R80.9 Proteinuria, unspecified
CPT/HCPCS: 76775

== ENCOUNTER 2022-06-30 12:50 | Outpatient (REF) | payer MEDICARE, MEDICAID, SELFPAY ==
--- NOTE | ~2022-06-30 | MM_ITS ---
EXAMINATION: MM SCREENING DIGITAL BREAST TOMOSYNTHESIS, BILATERAL CLINICAL INFORMATION: Screening. Asymptomatic. The lifetime risk of breast cancer based on the Tyrer-Cuzick Model is 8%. COMPARISON: Mammography: 06/22/2021, 03/15/2018, 02/11/2017 TECHNIQUE: Digital breast tomosynthesis is performed in both the craniocaudal and mediolateral oblique views along with computer-aided detection (CAD). Synthesized 2D images are generated from the tomosynthesis. Additional right MLO view is provided. FINDINGS: The breasts are almost entirely fatty (ACR BI-RADS breast composition Category a). There are no significant masses, abnormal calcifications, or other abnormalities. No developing density or architectural abnormality. Background stromal markings are normal. The axilla and skin contours are unremarkable. MM/MM tomosynthesis screening BI IMPRESSION: No mammographic evidence of malignancy. ASSESSMENT: BI-RADS 1: Negative RECOMMENDATION: Routine annual mammography screening. This patient's information was entered into a reminder system with a target due date for their next mammogram.
== END 2022-06-30 12:51 | disposition home or self-care (01) ==
LOC: HO.MAMMO 12:50
PROVIDERS: PCP Internal Medicine; Visit Provider Internal Medicine
DX: Z12.31 Encounter for screening mammogram for malignant neoplasm of breast (principal)
CPT/HCPCS: 77063; 77067

== ENCOUNTER 2022-09-27 09:50 | Outpatient (REF) | payer OTHER, SELFPAY ==
--- NOTE | ~2022-09-27 | US_ITS ---
EXAMINATION: US RETROPERITONEAL LIMITED (RENAL ONLY) CLINICAL INFORMATION: Calculus of kidney. COMPARISON: Bilateral renal ultrasound dated 06/04/2022 and 09/17/2021. CT abdomen and pelvis without contrast dated 08/17/2019. KUB dated 11/22/2018 and 06/09/2016. MR abdomen without and with contrast dated 12/31/2009. TECHNIQUE: Real-time imaging of the kidneys. FINDINGS: RIGHT KIDNEY: 9.5 x 3.5 x 3.6 cm (SAG x AP x TRV). The kidney is normal in size, contour, and echogenicity. Renal cortical thickness is normal. 2 stones measuring 6 x 3 x 5 mm in the upper pole and 5 x 4 mm in the midpole. No focal parenchymal lesions or hydronephrosis. LEFT KIDNEY: 9.3 x 3.8 x 4.0 cm (SAG x AP x TRV). The kidney is normal in size, and echogenicity. Renal cortical thickness is normal. Renal contour slightly irregular or nodular. No calculi or focal parenchymal lesions. No hydronephrosis. US/US renal BI IMPRESSION: Right renal stones. No left renal stone appreciated.
== END 2022-09-27 09:51 | disposition home or self-care (01) ==
LOC: HO.US 09:50
PROVIDERS: PCP Internal Medicine; Visit Provider Nurse Practitioner Family
DX: N20.0 Calculus of kidney (principal)
CPT/HCPCS: 76775

== ENCOUNTER 2022-10-06 10:07 | Outpatient (REF) | payer OTHER, SELFPAY ==
--- NOTE | ~2022-10-06 | MM_ITS ---
EXAMINATION: BONE DENSITOMETRY CLINICAL INDICATION: Unspecified menopausal and perimenopausal disorder. COMPARISON: This is the patient's baseline examination. TECHNIQUE: Using a [employer] DXA System (software version: 13.1) manufactured by [employer], dual-energy x-ray absorptiometry was performed of the lumbar spine and left hip. The images are of good technical quality. Summary results are attached. FINDINGS: LEFT FEMUR, NECK: BMD 0.967 g/cm2, Z-score 0.4, T-score -0.5, normal. LEFT FEMUR, TOTAL: BMD 1.070 g/cm2, Z-score 1.1, T-score 0.5, normal. AP SPINE L1-L4: BMD 1.286 g/cm2, Z-score 1.4, T-score 0.9, normal. IDENTIFIED RISK FACTORS: Early menopause, secondary osteoporosis, bilateral oophorectomy, hysterectomy, renal, osteoporosis. HISTORY OF FRACTURE: None listed. MEDICATIONS: None listed. MM/XR DEXA axial skeleton IMPRESSION: 1. DIAGNOSIS: Normal bone density based on the lowest T-score value of -0.5 in the femoral neck applying World Health Organization criteria. 2. 10-YEAR FRACTURE RISK PREDICTION, FRAX: According to the guidelines, FRAX calculation should only be performed on patients in the osteopenia bone density category. Therefore, FRAX was not performed on this patient. 3. Treatment Recommendations: NOF guidelines recommend consideration for treatment in postmenopausal women and men age 50 and older presenting with the following: -A hip or vertebral (clinical or morphometric) fracture. -T-score less than or equal to -2.5 at the femoral neck or spine after appropriate evaluation to exclude secondary causes. -Low bone mass at the hip or spine and a 10-year fracture probability by FRAX of greater than or equal to 3% for hip fracture or greater than or equal to 20% for major osteoporotic fracture based on the [place] adapted WHO algorithm. 4. Other Recommendations: All treatment decisions require clinical judgment and consideration of individual patient factors, including patient preferences, comorbidities, previous drug use, risk factors not captured in the FRAX model (e.g. frailty, falls, vitamin D deficiency, increased bone turnover, interval significant decline in bone density) and possible under or overestimation of fracture risk by FRAX. FUTURE SCAN RECOMMENDATION: People with diagnosed cases of osteoporosis or at high risk for fracture should have regular bone mineral density tests. For patients eligible for Medicare, routine testing is allowed once every 2 years. The testing frequency can be increased to one year for patients who have rapidly progressing disease, those who are receiving or discontinuing medical therapy to restore bone mass, or have additional risk factors.
== END 2022-10-06 10:08 | disposition home or self-care (01) ==
LOC: HO.MAMMO 10:07
PROVIDERS: PCP Internal Medicine; Visit Provider Internal Medicine
DX: Z13.820 Encounter for screening for osteoporosis (principal); Z78.0 Asymptomatic menopausal state
CPT/HCPCS: 77080

== ENCOUNTER → 2022-10-06 10:30 | Outpatient (BNV) | payer OTHER, SELFPAY | PROVIDERS: PCP Internal Medicine; Visit Provider Radiology Diagnostic Radiology | DX: N95.9 Unspecified menopausal and perimenopausal disorder (principal) | CPT/HCPCS: 77080 ==

== ENCOUNTER 2022-10-15 09:08 | Outpatient (AMB) | payer OTHER, SELFPAY ==
--- NOTE | 2022-10-15 09:59 | MHC.OFFVIS ---
Intake Intake Visit Reasons: stones yearly follow up/US(set) Intake Note: Patient is present for follow up ultrasound/kidney stones (imaging 09/27/22) Urology Medications: Vitamin B6 Blood Thinner: Aspirin Bin Worker Required: Yes Bin Worker Name: NICOLETTE Accompanied by: Self / Same As Patient Allergies naproxen Allergy (Intermediate, Verified 10/15/22 10:28) stomach upset pravastatin [PRAVASTATIN] Allergy (Intermediate, Verified 10/15/22 10:28) RASH Medication List - Last Reconciled 10/15/22 by OCHOA Patricio- albuterol sulfate 2.5 mg (3 mL) inhalation TID 90 days alcohol swabs (Alcohol Prep Pads) 1 pad topical BID 90 days aspirin 81 mg PO DAILY atorvastatin 80 mg PO DAILY 90 days blood sugar diagnostic (dooyoo Verio test strips) Use 1 test strip twice a day blood-glucose meter (FreeStyle Lite Meter kit) tid blood-glucose meter (RenrendaiTouch Verio Flex Meter) As directed diclofenac sodium 1% (Arthritis Pain (diclofenac)) 4 grams topical QID PRN 30 days ezetimibe 10 mg PO DAILY 90 days ferrous sulfate 325 mg PO DAILY 90 days fluticasone propionate 50 mcg/actuation 1 spray intranasal DAILY 30 days insulin glargine 60 units subcut QAM ketoprofen 25 mg PO QID PRN 30 days lactulose 15 mL PO DAILY lancets Use 1 lancet twice a day lisinopril 40 mg PO DAILY loratadine 10 mg PO DAILY nystatin 1 appl topical DAILY 90 days omeprazole 20 mg PO DAILY ondansetron 4 mg PO Q8H PRN pen needle, diabetic As directed pioglitazone 45 mg PO DAILY prochlorperazine maleate mg PO sennosides 17.2 mg (2 x 8.6 mg) PO BEDTIME PRN 90 days tramadol 50 mg PO .every 6 hours PRN 30 days Ventolin HFA 90 mcg/actuation (albuterol sulfate) 2 puffs inhalation Q6H PRN 30 days NS HPI HPI Comments History of Present Illness Details Vero is a very pleasant 67-year-old [place]-speaking female patient of Dr. Tapia. She has a past medical history of chronic kidney disease stage III, vitamin B12 deficiency, renal calculi, diabetes mellitus, hypertension, uterine cancer, diverticulosis, chronic constipation, GERD, hyperlipidemia, migraines, arthritis, anxiety, and asthma. She presents to the office today for follow-up of her nephrolithiasis. In discussion with the patient today she reports to be doing and feeling well. Recent renal imaging results reviewed with the patient today. Right kidney with 2 stones measuring 5 mm in the upper pole and 4 mm in the mid pole. No lesions or hydronephrosis noted. Left kidney with no calculi, lesions, and or hydronephrosis noted. When asked patient reports to be drinking plenty of water daily. She discusses adding lemon juice to water daily. Patient discusses having previous renal calculi surgical interventions in the past with Dr. Anderson. She discusses following a diabetic diet. When asked she denies urinary urgency, urinary frequency, incontinence, nocturia, hematuria, dysuria, foul smelling urine, changes to urinary stream, flank pain, fever, and or chills. Discussed surgical intervention versus surveillance monitoring; discussed risks and benefits. Patient denies any issues at this time and would like to continue with surveillance monitoring. She is happy with her current voiding parameters. In office urinalysis results reviewed with the patient. [facility] Medical History Breast cancer screening by mammogram Physical exam CKD (chronic kidney disease) stage 3, GFR 30-59 ml/min B12 deficiency Postmenopausal Renal calculi Diabetes mellitus Essential hypertension Uterine cancer Pure hypercholesterolemia Lesion of pancreas Diverticulosis Chronic constipation GERD (gastroesophageal reflux disease) Hyperlipidemia Thyroid nodule Chronic kidney disease Migraine headache Arthritis Anxiety disorder Asthma Type 2 diabetes mellitus Hypertension Surgical History History of hysterectomy for malignancy Hx of endoscopy History of hernia repair Hx of cholecystectomy History of section History of colonoscopy History of lithotripsy Family History Father History of coronary artery disease History of diabetes mellitus, type II History of cancer Mother History of hypertension Social History Housing: Apartment Alcohol intake: never Patient Tobacco Use Status: Former Tobacco user Tobacco use type: Cigarette e-Cigarette/Vaping Use: Never Used Second Hand Smoke Exposure: No service: No Current occupational status: unemployed and disabled Cognitive needs: Yes Hearing needs: No Vision needs: Yes Review of Systems Eyes Reports no additional complaints ENT Reports no additional complaints Card Reports as per [facility] Resp Reports as per [facility] GI Reports as per [facility] Reports as per [facility] Musc Reports as per [facility] Neuro Reports as per [facility] Psych Reports as per [facility] Endo Reports as per [facility] Physical Exam Const General: cooperative, healthy appearing, comfortable, no acute distress, well developed, alert and awake Nutritional Appearance: overweight Orientation/consciousness: patient oriented x3 Limitations: no limitations HEENT Head: Yes normal to inspection, Yes normocephalic and Yes atraumatic Ears: hearing grossly normal bilaterally Eyes General: appearance normal, both eyes and all related structures Neck Neck: Yes normal visual inspection and Yes trachea midline Chest Chest palpation & inspection: normal inspection of the chest Resp Effort & Inspection: normal respiratory effort and able to speak in complete sentences Cardio Rate: regular rate GI Inspection: Yes normal to inspection General: Yes no CVA tenderness Back/Spine/Pelvis Back: no CVA tenderness Skin General skin exam: no rashes or lesions noted Neuro General: patient oriented x3 Extrem General: Yes normal to inspection Psych Appearance: grossly normal and well kempt Mental Status: mental status grossly normal Speech and movement: Normal speech and movement present and Clear speech present Affect: normal affect Attitude: cooperative Thought process: Normal thought process present Thought content: Normal thought content present Insight: Fair insight present (Psych) Judgement: Fair judgement present (Psych) Results AMB Urinalysis, Automated UA Leukoctes 70 Nitesh/uL Last Edit by Mary Evans on 10/15/22 10:12 UA Nitrite Last Edit by Mary Evans on 10/15/22 10:12 UA Urobilinogen 0.2 mg/dL Last Edit by Mary Evans on 10/15/22 10:12 UA Protein 30 mg/dL Last Edit by Genomedlucas Evans on 10/15/22 10:12 UA pH 5.5 Last Edit by Mary Evans on 10/15/22 10:12 UA Blood 0 Theodore/uL Last Edit by Mary Evans on 10/15/22 10:12 UA Specific [place] 1.030 Last Edit by SincereLocalitylucas Evans on 10/15/22 10:12 UA Ketone Last Edit by TranslateMediaglenda Evans on 10/15/22 10:12 UA Bilirubin 0 mg/dL Last Edit by Mary Evans on 10/15/22 10:12 UA Glucose 0 mg/dL Last Edit by Mary Evans on 10/15/22 10:12 Results Reviewed Results Reviewed: Laboratory Last Values Urine pH (Auto) 5.5 10/15/22 10:03 Specific [place] (Auto) 1.030 10/15/22 10:03 Urine Protein (Auto) 30 mg/dL 10/15/22 10:03 Glucose (UA)(Auto) 0 mg/dL 10/15/22 10:03 Urine Blood (Auto) 0 Theodore/uL 10/15/22 10:03 Urine Bilirubin (Auto) 0 mg/dL 10/15/22 10:03 Urine Urobilinogen (Auto) 0.2 mg/dL 10/15/22 10:03 Leukocyte Esterase (Auto) 70 Nitesh/uL 10/15/22 10:03 Date of Service: 09/27/22 US RETROPERITONEAL LIMITED (RENAL ONLY) FINDINGS: RIGHT KIDNEY: 9.5 x 3.5 x 3.6 cm (SAG x AP x TRV). The kidney is normal in size, contour, and echogenicity. Renal cortical thickness is normal. 2 stones measuring 6 x 3 x 5 mm in the upper pole and 5 x 4 mm in the midpole. No focal parenchymal lesions or hydronephrosis. LEFT KIDNEY: 9.3 x 3.8 x 4.0 cm (SAG x AP x TRV). The kidney is normal in size, and echogenicity. Renal cortical thickness is normal. Renal contour slightly irregular or nodular. No calculi or focal parenchymal lesions. No hydronephrosis. IMPRESSION: Right renal stones. No left renal stone appreciated Assessment & Plan Assessment & Plan (1) Renal calculi: Code(s): N20.0 - Calculus of kidney Plan In office urinalysis results reviewed with the patient today; as noted above. Recent renal imaging results reviewed with the patient today. Discussed, stress, and encouraged on the importance of drinking plenty of water daily. Discussed continuing to manage diabetes for overall health and well-being. Start vitamin B6 as discussed and prescribed. Continue adding 1 oz of lemon juice to water daily. Renal ultrasound in 1 year. Follow-up in 1 year with imaging to be completed prior; or sooner with any issues, concerns, and or questions. Orders: Orders AMB Urinalysis Automated 10/15/22 Z13.9 - Encounter for screening, unspecified US renal BI 364 Days N20.0 - Calculus of kidney Medications: New pyridoxine (vitamin B6) 100 mg PO DAILY 90 days 90 tabs 3RF Patient Instructions: The patient had an opportunity to ask questions regarding the treatment plan. All questions were answered. Physical exam, labs, and imaging were discussed and reviewed in detail. As well as risks, benefits, and discussion of treatment choices. No major barriers to understanding were identified. The patient expressed understanding and agreement with the above treatment plan. The patient was made aware they should contact our office by phone for worsening of their current condition, the appearance of new symptoms, or with any questions or concerns. Compliance is encouraged with any medications and follow up testing that is ordered. It is a privilege to be allowed the opportunity to participate in? your urological care.? Again, if you have any questions or concerns If you have any questions or concerns please do not hesitate to contact me. The office is [phone]. This note is constructed using voice recognition software. While every effort has been made to ensure accuracy eligibility and occupancy interviewer errors may have been included. Yours sincerely, JORY Patricio Coding Level of Care Code Est Pt Level 4 (91394) Diagnoses Renal calculi N20.0
== END 2022-10-15 10:22 | disposition home or self-care (01) ==
PROVIDERS: PCP Internal Medicine; Visit Provider Nurse Practitioner Family
DX: Z13.9 Encounter for screening, unspecified (principal)
CPT/HCPCS: 99214

== ENCOUNTER → 2022-10-15 09:08 | Outpatient (BNVA) | payer OTHER, SELFPAY | PROVIDERS: PCP Internal Medicine; Visit Provider Nurse Practitioner Family | DX: N20.0 Calculus of kidney (principal) | CPT/HCPCS: 81003; 99212 ==

== ENCOUNTER 2022-11-04 08:15 | Outpatient (REF) | payer OTHER, SELFPAY ==
[2022-11-04 08:45] LABS: MANUAL DIFF FLAG NO
[2022-11-04 08:49] LABS: Basophils Percent Auto 0.6 % (0-2); Eosinophils Absolute Auto 0.1 X10*3/uL (0.0-0.4); Eosinophils Percent Auto 1.5 % (0-4); Hematocrit 33.1 % (37.0-47.0); Imm Gran Abs Auto 0.03 X10*3/uL (0.00-0.03); Imm Gran Pct Auto 0.5 % (0.0-0.4); Lymphocytes Absolute Auto 0.8 X10*3/uL (1.2-4.9); Lymphocytes Percent Auto 12.1 % (20-40); Mean Corpuscular HGB Conc 33.2 g/dl (31.0-35.0); Mean Corpuscular Hemoglobin 32.9 pg (27.0-33.0); Mean Corpuscular Volume 99.1 fL (80.0-98.0); Mean Platelet Volume 9.3 fL (9.4-12.3); Monocytes Absolute Auto 0.4 X10*3/uL (0.1-1.2); Monocytes Percent Auto 6.4 % (2-11); Neutrophils Absolute Auto 5.1 x10*3/uL (2.0-8.3); Neutrophils Percent Auto 78.9 % (45-73); Platelet Count 253 X10*3/uL (160-400); Red Blood Count 3.34 X10*6/uL (4.20-5.50); Red Cell Distribution Width 12.7 % (11.0-16.0); White Blood Count 6.5 X10*3/uL (4.8-10.8)
[2022-11-04 09:22] LABS: Alanine Aminotransferase 11 U/L (0-31); Albumin Level 3.9 g/dL (3.5-5.0); Alkaline Phosphatase 151 U/L (39-117); Anion Gap 13 (12-20); Aspartate Amino Transferase 18 U/L (5-31); Bilirubin Total 0.7 mg/dL (0.0-1.0); Blood Urea Nitrogen 20 mg/dL (9-16); Calcium 8.2 mg/dL (8.4-10.2); Carbon Dioxide 26 mmol/L (22-29); Chloride 106 mmol/L (96-108); Cholesterol 148 mg/dL (<200); Estimated Glomerular Filt Rate 40; Glucose Fasting 155 mg/dL (60-99); HDL Cholesterol 39 mg/dL (>40); Iron 55 mcg/dL (30-160); LDL Cholesterol Calculated 97 mg/dL (<100); Percent Iron Saturation 24 % (15-50); Potassium 4.1 mmol/L (3.3-5.1); Sodium 141 mmol/L (135-145); Total Iron Binding Capacity 229 mcg/dL (228-428); Triglycerides 64 mg/dL (<150); Unsaturated Iron Binding 174 ug/dL
[2022-11-04 09:51] LABS: Folate 4.6 ng/mL (> or = 4.0); Vitamin B12 232 pg/mL (200-900)
[2022-11-04 11:37] LABS: Creatinine Urine 169.38 mg/dL; Microalbum/Creatinine Ratio Ur 86.7 ug/mg cr (<30)
[2022-11-10 14:18] LABS: Parietal Cell Antibody <=20.0 Unit (<=20.0)
[2022-11-10 21:18] LABS: Intrinsic Factor Antibodies Negative (Negative)
== END 2022-11-04 08:16 | disposition home or self-care (01) ==
LOC: HO.LAB 08:15
PROVIDERS: PCP Internal Medicine; Visit Provider Internal Medicine
DX: N18.30 Chronic kidney disease, stage 3 unspecified (principal); E11.9 Type 2 diabetes mellitus without complications; D64.9 Anemia, unspecified; E55.9 Vitamin D deficiency, unspecified; E53.8 Deficiency of other specified B group vitamins; E78.5 Hyperlipidemia, unspecified
CPT/HCPCS: 36415; 80053; 80061; 82043; 82306; 82570; 82607; 82746; 83516; 83540; 85025; 86340

== ENCOUNTER 2022-11-09 09:11 | Outpatient (AMB) | payer OTHER, MEDICAID, SELFPAY ==
[2022-11-09 09:16] VITALS: BP 120/70; BMI 40.4
--- NOTE | 2022-11-09 09:16 | A.OFFPC_ITS ---
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 Health Education Coordinator Required: No Accompanied by: Self / Same As Patient Allergies naproxen Allergy (Intermediate, Verified 11/09/22 09:32) stomach upset pravastatin [PRAVASTATIN] Allergy (Intermediate, Verified 11/09/22 09:32) RASH Medication List - Last Reconciled 11/09/22 by Caro Guevara MD albuterol sulfate 2.5 mg (3 mL) inhalation TID 90 days alcohol swabs (Alcohol Prep Pads) 1 pad topical BID 90 days aspirin 81 mg PO DAILY atorvastatin 80 mg PO DAILY 90 days blood sugar diagnostic (H5uch Verio test strips) Use 1 test strip twice a day blood-glucose meter (FreeStyle Lite Meter kit) tid blood-glucose meter (OneTouch Verio Flex Meter) As directed diclofenac sodium 1% (Arthritis Pain (diclofenac)) 4 grams topical QID PRN 30 days ferrous sulfate 325 mg PO DAILY 90 days fluticasone propionate 50 mcg/actuation 1 spray intranasal DAILY 30 days insulin glargine 60 units subcut QAM lactulose 15 mL PO DAILY lancets Use 1 lancet twice a day lisinopril 40 mg PO DAILY loratadine 10 mg PO DAILY nystatin 1 appl topical DAILY 90 days omeprazole 20 mg PO DAILY ondansetron 4 mg PO Q8H PRN pen needle, diabetic As directed pioglitazone 45 mg PO DAILY pyridoxine (vitamin B6) 100 mg PO DAILY 90 days sennosides 17.2 mg (2 x 8.6 mg) PO BEDTIME PRN 90 days Ventolin HFA 90 mcg/actuation (albuterol sulfate) 2 puffs inhalation Q6H PRN 30 days NS Tobacco use date assessed: 03/25/22 Fall risk assessment: No Falls in past year Last assessed Fall Risk: 11/09/22 Dental Screening Dental Screen Date: 11/09/22 Did you have a dental visit in the last 12 months?: No Did you have a dental problem in the last 6 months where you did not have access to dental care?: No Was dental information given to patient?: Patient has dentist HPI HPI Comments History of Present Illness Details This is a 67-year-old female with diabetes mellitus type 2, hypertension, hyperlipidemia, morbid obesity and microalbuminuria that comes today for follow-up her conditions. A1c within goal. Blood pressure stable. LDL close to goal and was advised to do a low-cholesterol diet. She is morbidly obese with a BMI of 40.4 and declines weight loss surgery. Was advised to diet and exercise as tolerated to reach BMI goal less than 30. Use a cane for gait stability. Has microalbuminuria and will be referred to Nephrology. Also needs a diabetic eye exam. [facility] Medical History (Updated 11/09/22 @ 09:41 by Caro Guevara MD) Breast cancer screening by mammogram Physical exam CKD (chronic kidney disease) stage 3, GFR 30-59 ml/min B12 deficiency Postmenopausal Renal calculi Diabetes mellitus Essential hypertension Uterine cancer Pure hypercholesterolemia Lesion of pancreas Diverticulosis Chronic constipation GERD (gastroesophageal reflux disease) Hyperlipidemia Thyroid nodule Chronic kidney disease Migraine headache Arthritis Anxiety disorder Asthma Type 2 diabetes mellitus Hypertension Surgical History History of hysterectomy for malignancy Hx of endoscopy History of hernia repair Hx of cholecystectomy History of section History of colonoscopy History of lithotripsy Family History Father History of coronary artery disease History of diabetes mellitus, type II History of cancer Mother History of hypertension Social History Housing: Apartment Alcohol intake: never Patient Tobacco Use Status: Former Tobacco user Tobacco use type: Cigarette e-Cigarette/Vaping Use: Never Used Second Hand Smoke Exposure: No service: No Current occupational status: unemployed and disabled Cognitive needs: Yes Hearing needs: No Vision needs: Yes Questionnaire Thrive Questionnaire Date Thrive assessed: 03/25/22 SHARONDA-7 AMB Questionnaire SHARONDA-7 Date SHARONDA - 7 assessed: 03/25/22 Source: Developed by Drs. Goyo Ortiz, Katherin Martinez, Mj Tatum and colleagues, with an educational corinne from [employer] Review of Systems Const All systems reviewed & are unremarkable except as noted in HPI and below Eyes Reports no additional complaints, Denies change in vision and Denies other visual disturbances Card Denies chest pain at rest, Denies chest pain with activity, Denies edema, Denies irregular heart rhythm, Denies claudication, Denies dyspnea, Denies dyspnea on exertion, Denies orthopnea, Denies paroxysmal nocturnal dyspnea and Denies slow heart rate Resp Denies cough, Denies dyspnea and Denies dyspnea on exertion GI Denies abdominal pain, Denies change in bowel habits, Denies excessive flatus, Denies nausea and Denies vomiting Denies urinary incontinence, Denies urinary hesitancy and Denies urinary urgency Musc Denies abnormal gait, Denies atrophy, Denies deformity and Denies limited range of motion Skin/Breast Denies bleeding lesions, Denies changing lesions and Denies rash Neuro Denies abnormal gait and Denies lack of coordination Physical exam (Primary Care) Vital Signs: Last Vital Signs BP 120/70 11/09/22 09:16 BMI result Body Mass Index 40.4 Tobacco/Smoking Status: Tobacco use Status Tobacco use date assessed 03/25/22 11/09/22 09:18 Patient Tobacco Use Status Former Tobacco user 11/09/22 09:18 Tobacco use type Cigarette 11/09/22 09:18 e-Cigarette/Vaping Use Never Used 11/09/22 09:18 Thrive Assessment: Date of Thrive Assessment Date Thrive assessed 03/25/22 11/09/22 09:18 Const Limitations: ambulation with cane Eyes General: appearance normal, both eyes and all related structures Eyelids: Yes eyelids normal Conjunctivae: conjunctivae normal Neck Neck: Yes normal visual inspection and Yes supple Resp Effort & Inspection: normal respiratory effort Auscultation: clear to auscultation bilaterally Cardio Jugular venous distension: no JVD Rate: regular rate Rhythm: regular rhythm Heart sounds: S1 normal heart sound present and S2 normal heart sound present Extrem General: Yes full ROM Office Procedures Flu Questionnaire Does the patient have a severe egg allergy?: No Does the patient have severe life threatening allergies?: No Does the patient have a fever or illness today?: No Has the patient ever had Guillain-Camby Syndrome?: No Has the patient ever had any past reaction to a flu shot?: Yes Results AMB Hemoglobin A1c AMB Hemoglobin A1c 6.4 % Last Edit by BERRY Lux on 11/09/22 09:2 3 Immunizations flu vacc [id number] 6mos up(PF) 60 mcg(15 mcgx4)/0.5 mL IM syringe Performing Provider: Caro Guevara MD [facility] Documented (not given) by: BERRY Lux on 11/09/22 09:21 Reason Not Given: Patient Refused Results Reviewed Results Reviewed: Laboratory Last Values Hgb A1c (Clinic) 6.4 % (4.0-6.0) H 11/09/22 09:22 Assessment and Plan Assessment & Plan (1) Diabetes mellitus: Code(s): E11.9 - Type 2 diabetes mellitus without complications Qualifiers: Diabetes mellitus type: type 2 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 A1c goal is equal or less than 7%. (2) Essential hypertension: Code(s): I10 - Essential (primary) hypertension Plan: Continue lisinopril. Blood pressure goal is equal or less than 130/80. (3) Hyperlipidemia LDL goal <70: Code(s): E78.5 - Hyperlipidemia, unspecified Plan: Continue statins. LDL goal is less than 70. (4) Morbid obesity: Code(s): E66.01 - Morbid (severe) obesity due to excess calories Plan: Start diet and exercise. BMI goal is less than 30. (5) Microalbuminuria: Code(s): R80.9 - Proteinuria, unspecified Plan: Continue lisinopril. Referred to Nephrology. Avoid NSAIDs. Keep blood pressure less than 130/80. Orders: Orders 2 Influenza [id number] Immunization Today Z23 - Encounter for immunization Lipid Panel 4 Months E78.5 - Hyperlipidemia, unspecified Microalbumin, Random (w Creat) 4 Months E11.9 - Type 2 diabetes mellitus without complications Comprehensive [place]. Panel Fast 4 Months E78.5 - Hyperlipidemia, unspecified AMB Hemoglobin A1c Today E11.9 - Type 2 diabetes mellitus without complications Referrals Ophthalmology Referral E11.9 - Type 2 diabetes mellitus without complications Nephrology Referral R80.9 - Proteinuria, unspecified Coding Level of Care Code Est Pt Level 4 (36029) Diagnoses Type 2 diabetes mellitus with hyperglycemia, with long-term current use of insulin E11.65; Z79.4 Diabetes mellitus type: type 2 Diabetes mellitus halfway insulin use: with halfway use Diabetes mellitus complication status: with hyperglycemia Essential hypertension I10 Hyperlipidemia LDL goal <70 E78.5 Morbid obesity E66.01 Microalbuminuria R80.9 Time Spent (min) 22
== END 2022-11-09 09:44 | disposition home or self-care (01) ==
PROVIDERS: Visit Provider Internal Medicine
DX: E11.65 Type 2 diabetes mellitus with hyperglycemia (principal); Z79.4 Long term (current) use of insulin; E66.01 Morbid (severe) obesity due to excess calories; Z68.41 Body mass index [BMI] 40.0-44.9, adult; E11.9 Type 2 diabetes mellitus without complications; I10 Essential (primary) hypertension; E78.5 Hyperlipidemia, unspecified; R80.9 Proteinuria, unspecified
CPT/HCPCS: 83036; 99214

== ENCOUNTER 2022-12-07 10:39 | Outpatient (REF) | payer OTHER, SELFPAY ==
[2022-12-07 10:57] LABS: MANUAL DIFF FLAG NO
[2022-12-07 11:56] LABS: Basophils Percent Auto 0.5 % (0-2); Eosinophils Absolute Auto 0.1 X10*3/uL (0.0-0.4); Eosinophils Percent Auto 0.8 % (0-4); Hematocrit 35.1 % (37.0-47.0); Imm Gran Abs Auto 0.02 X10*3/uL (0.00-0.03); Imm Gran Pct Auto 0.3 % (0.0-0.4); Lymphocytes Absolute Auto 0.8 X10*3/uL (1.2-4.9); Lymphocytes Percent Auto 12.5 % (20-40); Mean Corpuscular HGB Conc 34.2 g/dl (31.0-35.0); Mean Corpuscular Volume 99.4 fL (80.0-98.0); Mean Platelet Volume 9.7 fL (9.4-12.3); Monocytes Absolute Auto 0.5 X10*3/uL (0.1-1.2); Monocytes Percent Auto 7.2 % (2-11); Neutrophils Absolute Auto 4.9 x10*3/uL (2.0-8.3); Neutrophils Percent Auto 78.7 % (45-73); Platelet Count 257 X10*3/uL (160-400); Red Blood Count 3.53 X10*6/uL (4.20-5.50); Red Cell Distribution Width 12.8 % (11.0-16.0); White Blood Count 6.2 X10*3/uL (4.8-10.8)
[2022-12-07 11:59] LABS: Appearance Urine Clear; Color Urine Yellow; Glucose Urine UA 250 mg/dL (Negative); Leukocyte Esterase Urine Small (1+) (Negative); Nitrite Urine Negative (Negative); PH 5.5 (5.0-9.0); UMIC TRIGGER UA YES; Urine Blood Negative (Negative); Urine Ketones Negative (Negative); Urine Protein 30 (1+) mg/dL (Neg-Trace)
[2022-12-07 12:05] LABS: Bacteria Urine None Seen (None Seen); Hyaline Casts Urine 0-2 /LPF (0-2); RBC Urine 0-2 /HPF (0-2)
[2022-12-07 12:33] LABS: Total Protein Urine Random 33 mg/dL (<12)
[2022-12-07 12:34] LABS: Albumin Level 4.1 g/dL (3.5-5.0); Anion Gap 15 (12-20); Blood Urea Nitrogen 21 mg/dL (9-16); Calcium 9.8 mg/dL (8.4-10.2); Carbon Dioxide 23 mmol/L (22-29); Chloride 106 mmol/L (96-108); Estimated Glomerular Filt Rate 34; Magnesium 1.7 mg/dL (1.6-2.6); Phosphorus 2.5 mg/dL (2.7-4.5); Potassium 3.8 mmol/L (3.3-5.1); Sodium 140 mmol/L (135-145)
[2022-12-07 12:54] LABS: Vitamin D 25-OH Total 22.7 ng/mL (>30)
[2022-12-08 16:39] LABS: Calcium (PTHI) 9.5 mg/dL (8.6-10.4); PTHI 60 pg/mL (16-77)
== END 2022-12-07 10:40 | disposition home or self-care (01) ==
LOC: HO.LAB 10:39
PROVIDERS: PCP Internal Medicine; Visit Provider Internal Medicine Nephrology
DX: E11.22 Type 2 diabetes mellitus with diabetic chronic kidney disease (principal); N18.31 Chronic kidney disease, stage 3a; E11.21 Type 2 diabetes mellitus with diabetic nephropathy; N25.0 Renal osteodystrophy
CPT/HCPCS: 36415; 80051; 81001; 82040; 82043; 82306; 82310; 82565; 82570; 83735; 83970; 84100; 84156; 84520; 85025

== ENCOUNTER 2023-01-22 13:36 | Emergency (ER) | payer OTHER, SELFPAY ==
[2023-01-22 13:38] VITALS: BP 132/80; BP 153/76; PULSE 58; PULSE 66; RESP 14; TEMP 36.8; O2SAT 100; O2SAT 99; BMI 39.9
[2023-01-22 14:58] VITALS: BP 142/70; PULSE 52
[2023-01-22 14:59] VITALS: BP 132/76; PULSE 75
--- NOTE | 2023-01-22 14:59 | MHC.EDTECH ---
This PCT was doing orthostatic vitals with the PT, while sitting the pt became more nauseous and dizzy, was unable to stand and could not finish orthos.
--- NOTE | 2023-01-22 15:26 | ECG_ITS ---
Test Reason : DIZZINESS Blood Pressure : / mmHG Vent. Rate : 052 BPM Atrial Rate : 052 BPM P-R Int : 164 ms QRS Dur : 094 ms QT Int : 448 ms P-R-T Axes : 029 -12 008 degrees QTc Int : 416 ms Sinus bradycardia Minimal voltage criteria for LVH, may be normal variant ( R in aVL ) Borderline ECG When compared with ECG of 23-MAY-2021 11:52, No significant change was found Referred By: Kelli Cardoza Electronically Signed By:Scott Campbell
--- NOTE | 2023-01-22 16:20 | ED.NAVMDI ---
HPI - Nausea/Vomiting/Diarrhea General Chief complaint: Nausea/Vomiting/Diarrhea Stated complaint: VOMITING X 1 DAY Time Seen by Provider: 01/22/23 16:00 Source: patient Mode of arrival: EMS Limitations: no limitations History of Present Illness HPI Narrative: Patient comes to the emergency room complaining of lightheadedness with standing and walking. Patient states that for the last 4 days, she has noticed that when she is lying down sits up she gets lightheaded, no room spinning, also complaining of the same sensation after using the bathroom, standing and walking towards her bed. Patient has not passed out Or sustained any injuries. patient states that once she sits down or lays down, her symptoms self-resolved. Patient denies any chest pain or shortness of breath. patient states that she has not been vomiting or having diarrhea, no recent URIs or UTIs to her knowledge. Related Data Home Medications Medication Instructions Recorded Confirmed insulin glargine 100 unit/mL (3 60 unit subcut QAM 11/15/19 11/09/22 mL) subcutaneous pen pen needle, diabetic 32 gauge x #50 ea 11/15/19 11/09/22/ Previous Rx's Medication Instructions Recorded loratadine 10 mg tablet 10 mg PO DAILY #30 tabs 01/08/20 lactulose 10 gram/15 mL oral 15 ml PO DAILY #473 mL 01/14/21 solution nystatin 100,000 unit/gram topical 1 appl topical DAILY 90 days #15 01/22/21 cream grams ondansetron 4 mg disintegrating 4 mg PO Q8H PRN for 05/02/21 tablet nausea/vomiting #90 ea albuterol sulfate 2.5 mg/3 mL 2.5 mg (3 mL) inhalation TID 90 01/13/22 (0.083 %) solution for nebulization days #810 mL ferrous sulfate 325 mg (65 mg 325 mg PO DAILY 90 days #90 tabs 03/08/22 iron) tablet blood-glucose meter (FreeStyle #1 ea 03/25/22 Lite Meter kit) diclofenac sodium 1 % topical gel 4 g topical QID PRN pain 30 days 05/05/22 (Arthritis Pain (diclofenac)) #100 grams fluticasone propionate 50 1 spray intranasal DAILY 30 days 05/05/22 mcg/actuation nasal #16 mL spray,suspension blood sugar diagnostic (OneTouch #50 ea 04/06/23 Verio test strips) blood-glucose meter (OneTouch #1 ea 05/13/22 Verio Flex Meter) Ventolin HFA 90 mcg/actuation 2 puff inhalation Q6H PRN 06/30/22 aerosol inhaler (albuterol sulfate) shortness of breath or wheezing 30 days #8 grams sennosides 8.6 mg tablet 17.2 mg (2 x 8.6 mg) PO BEDTIME 08/23/22 PRN constipation 90 days #90 tabs atorvastatin 80 mg tablet 80 mg PO DAILY 90 days #90 tabs 09/20/22 lisinopril 40 mg tablet 40 mg PO DAILY #30 tabs 09/20/22 omeprazole 20 mg capsule,delayed 20 mg PO DAILY #30 caps 09/20/22 release pioglitazone 45 mg tablet 45 mg PO DAILY #30 tabs 09/20/22 pyridoxine (vitamin B6) 100 mg 100 mg PO DAILY 90 days #90 tabs 10/15/22 tablet Shower bench #1 ea 11/24/22 aspirin 81 mg tablet,delayed 81 mg PO DAILY #30 tabs 12/14/22 release lancets 30 gauge #100 ea 12/14/22 Shower Bench #1 ea 01/06/23 alcohol swabs (Alcohol Prep Pads) 1 pad topical BID 90 days #200 ea 01/20/23 Allergies Allergy/AdvReac Type Severity Reaction Status Date / Time naproxen Allergy Intermediate stomach Verified 11/09/22 09:32 upset pravastatin [PRAVASTATIN] Allergy Intermediate RASH Verified 11/09/22 09:32 Review of Systems Review of Systems: ?Constitutional : No Weight loss, No Fever, No Chills, No Night Sweats, No Fatigue, No Malaise ENT/Mouth : No Hearing loss, No Ear Pain, No Nasal Congestion, No Sinus Pain, No Hoarseness, No sore throat, No Rhinorrhea, No Swallowing Difficulty Eyes: No Eye Pain, No Swelling, No Redness, No Foreign Body, No Discharge, No Vision Changes Cardiovascular : No Chest Pain, No SOB, No Dyspnea on Exertion, No Orthopnea, No Edema, No Palpitations Respiratory : No Cough, No Sputum, No Wheezing, No Smoke Exposure, No Dyspnea Gastrointestinal : No Nausea, No Vomiting, No Diarrhea, No Constipation, No abdominal Pain, No Hematochezia, No Melena Genitourinary : no irregular bleeding, No Dysuria, No Urinary Frequency, No Hematuria, No Urinary Incontinence, No Urgency, No Flank Pain, No Urinary Flow Changes, No Hesitancy Musculoskeletal : No joint pain, No Myalgias, No Joint Swelling Skin : No Skin Lesions, No rash Neuro : No Weakness, No Numbness, No Paresthesias, No Loss of Consciousness,? no headache, complaining of passing of sensation with standing and walking Psych : No Anxiety/Panic, No Depression, No SI/HI/AH/VH, No Social Issues, Heme/Lymph: No Bruising, No Bleeding,No Lymphadenopathy Endocrine : No Polyuria, No Polydipsia, No Temperature Intolerance [facility] Past Medical History Medical History Breast cancer screening by mammogram Physical exam CKD (chronic kidney disease) stage 3, GFR 30-59 ml/min B12 deficiency Postmenopausal Renal calculi Diabetes mellitus Essential hypertension Uterine cancer Pure hypercholesterolemia Lesion of pancreas Diverticulosis Chronic constipation GERD (gastroesophageal reflux disease) Hyperlipidemia Thyroid nodule Chronic kidney disease Migraine headache Arthritis Anxiety disorder Asthma Type 2 diabetes mellitus Hypertension Surgical History History of hysterectomy for malignancy Hx of endoscopy History of hernia repair Hx of cholecystectomy History of section History of colonoscopy History of lithotripsy Family History Family History Father History of coronary artery disease History of diabetes mellitus, type II History of cancer Mother History of hypertension Social History Social History Housing: Apartment Alcohol intake: never Patient Tobacco Use Status: Former Tobacco user Tobacco use type: Cigarette e-Cigarette/Vaping Use: Never Used Second Hand Smoke Exposure: No Advance Directives: No Advance Directives Information Provided: Yes service: No Current occupational status: unemployed and disabled Cognitive needs: Yes Hearing needs: No Vision needs: Yes Physical Exam Vital Signs: Vital Signs: Last Vital Signs Temp 98.2 F 01/22/23 13:38 Pulse 59 01/22/23 18:30 Resp 20 01/22/23 17:45 BP 142/70 H 01/22/23 18:30 Pulse Ox 100 01/22/23 17:45 O2 Del Method Room Air 01/22/23 17:45 BMI result Body Mass Index 39.9 Const: Other: Appearance: Alert. Oriented X3. No acute distress. Eyes: Pupils equal, round and reactive to light. ENT: Pharynx normal. Neck: Normal inspection. Neck supple. No lymph nodes noted. No crepitus CVS: Normal heart rate and rhythm. Pulses normal. Normal S1 and S2 . Patient had positive orthostatic vitals Respiratory: No respiratory distress. Breath sounds normal. No Wheezing. No rales Abdomen: Soft and nontender. No rigidity. No distention. Skin: Skin warm and dry. Normal skin color. Normal skin turgor. Extremities: No lower extremity edema. No Lacerations. No Rash Neuro: Oriented X 3. No motor deficit. No sensory deficit. Moving all extremities. No slurred speech. CN 2 through 12 grossly intact Psych: calm, cooperative, normal affect Course Course Course Narrative: - all patient's labs pending - orthostatic vitals were positive, patient receiving IV fluids, otherwise patient is asymptomatic Medications Administered Discontinued Medications Generic Name Dose Route Start Last Admin Trade Name Freq PRN Reason Stop Dose Admin Sodium Chloride 1,000 mls @ 999 mls/hr 01/22/23 16:10 01/22/23 18:17 Ns IVCONT 01/22/23 17:10 Infused .Q1H1M ONE Infusion Medical Decision Making Medical Decision Making [facility] Narrative: -my interpretation of labs, Hematology at baseline, chemistry at baseline, troponin negative -my interpretation of EKG: Sinus bradycardia, 152, no ST segment depression or elevation, nonspecific T-wave inversion in lead III, QTC 460 -initial set of orthostatic vitals were positive. Patient given IV fluids, orthostatic vitals were checked a 2nd time, patient feeling better. -patient ready for discharge Differential Diagnosis Differential Diagnoses: The differential diagnosis associated with the presentation includes (Orthostatic hypotension, dehydration, ACS) Lab Data [facility] Lab Attestation statement: I reviewed the patient's lab results. 01/22/23 16:51 01/22/23 16:51 Labs: Lab Results 01/22/23 01/22/23 01/22/23 Range/Units 16:05 16:51 18:25 WBC 6.1 (4.8-10.8) X10*3/uL RBC 3.42 L (4.20-5.50) X10*6/uL Hgb 11.4 L (12.0-16.0) g/dl Hct 33.0 L (37.0-47.0) % MCV 96.5 (80.0-98.0) fL MCH 33.3 H (27.0-33.0) pg MCHC 34.5 (31.0-35.0) g/dl RDW 12.3 (11.0-16.0) % Plt Count 293 (160-400) X10*3/uL MPV 8.9 L (9.4-12.3) fL Immature Gran % (Auto) 0.3 (0.0-0.4) % Neut % (Auto) 74.8 H (45-73) % Lymph % (Auto) 15.6 L (20-40) % [place] % (Auto) 7.7 (2-11) % Eos % (Auto) 1.1 (0-4) % Baso % (Auto) 0.5 (0-2) % Lymph # (Auto) 1.0 L (1.2-4.9) X10*3/uL [place] # (Auto) 0.5 (0.1-1.2) X10*3/uL Eos # (Auto) 0.1 (0.0-0.4) X10*3/uL Baso # (Auto) 0.0 (0.0-0.2) X10*3/uL Abs Immat Gran (auto) 0.02 (0.00-0.03) X10*3/uL Absolute Neuts (auto) 4.6 (2.0-8.3) x10*3/uL Absolute Nucleated RBC 0.000 (0.0-0.012) X10*3/uL Nucleated RBC % (auto) 0.0 (0.0-0.2) /100WBC Sodium 142 (135-145) mmol/L Potassium 4.6 D (3.3-5.1) mmol/L Chloride 107 (96-108) mmol/L Carbon Dioxide 26 (22-29) mmol/L Anion Gap 14 (12-20) BUN 22 H (9-16) mg/dL Creatinine 1.37 (0.5-1.4) mg/dL Estim Creat Clear Calc 46.8 Estimated GFR 38 Random Glucose 139 H (60-115) mg/dL Calcium 9.7 (8.4-10.2) mg/dL Magnesium 1.6 (1.6-2.6) mg/dL Total Bilirubin 0.6 (0.0-1.0) mg/dL Direct Bilirubin 0.2 (0.0-0.5) mg/dL AST 20 (5-31) U/L ALT 13 (0-31) U/L Alkaline Phosphatase 141 H (39-117) U/L Troponin I High Sens < 2.7 (<3.5-17.0) ng/L Total Protein 7.0 (6.5-8.0) g/dL Albumin 3.7 (3.5-5.0) g/dL Lipase 20 (8-78) U/L Urine Color Yellow Urine Appearance Clear Urine pH 7.0 (5.0-9.0) Ur Specific [place] 1.020 (1.005-1.025) Urine Protein Trace (Neg-Trace) mg/dL Urine Glucose (UA) Negative (Negative) mg/dL Urine Ketones Negative (Negative) mg/dL Urine Blood Negative (Negative) Urine Nitrite Negative (Negative) Ur Leukocyte Esterase Small (1+) H (Negative) Urine RBC 0-2 (0-2) /HPF Urine WBC 0-5 (0-5) /HPF Ur Squamous Epith Cells 0-2 (0-2) /HPF Urine Bacteria None Seen (None Seen) Hyaline Casts 0-2 (0-2) /LPF Influenza Type A (PCR) NEGATIVE (Negative) Influenza Type B (PCR) NEGATIVE (Negative) RSV RNA Qual (PCR) NEGATIVE (Negative) SARS-CoV-2 RNA (RT-PCR) NEGATIVE (Negative) Independent Interpretation I performed an independent interpretation of an: EKG Discharge Plan Discharge Clinical Impression: Orthostatic hypotension Patient Disposition: Home, Self-Care Instructions: Hypotension (ED) Additional Instructions: Your blood pressure drops when you stand up. It improved with fluids. Please stay well hydrated. When you stand up or sit up, please do so slowly and carefully before you start walking. Please follow-up with your primary care physician tomorrow. If you have any worsening or new symptoms, please return to the emergency room or call 911 Prescriptions: No Action loratadine 10 mg tablet 10 mg PO DAILY Qty: 30 9RF ondansetron 4 mg tablet,disintegrating 4 mg PO Q8H PRN (Reason: for nausea/vomiting) Qty: 90 2RF albuterol sulfate 2.5 mg /3 mL (0.083 %) solution for nebulization 2.5 mg inhalation TID 90 Days Qty: 810 1RF ferrous sulfate 325 mg (65 mg iron) tablet 325 mg PO DAILY 90 Days Qty: 90 3RF diclofenac sodium [Arthritis Pain (diclofenac)] 1 % gel 4 g topical QID PRN (Reason: pain) 30 Days Qty: 100 0RF Rx Instructions: apply to single knee, ankle, foot; for foot includes sole/toes/top of foot fluticasone propionate 50 mcg/actuation spray,suspension 1 spray intranasal DAILY 30 Days Qty: 16 3RF (DME) OneTouch Verio test strips Strip See Rx Instructions .Route Qty: 50 3RF Rx Instructions: Use 1 test strip twice a day (DME) blood-glucose meter [OneTouch Verio Flex meter] [facility] [place] See Rx Instructions .Route Qty: 1 0RF Rx Instructions: As directed sennosides 8.6 mg tablet 17.2 mg PO BEDTIME PRN (Reason: constipation) 90 Days Qty: 90 1RF pioglitazone 45 mg tablet 45 mg PO DAILY Qty: 30 5RF omeprazole 20 mg capsule,delayed release(DR/EC) 20 mg PO DAILY Qty: 30 6RF lisinopril 40 mg tablet 40 mg PO DAILY Qty: 30 6RF atorvastatin 80 mg tablet 80 mg PO DAILY 90 Days Qty: 90 3RF (DME) Shower bench See Rx Instructions .Route .MEDSUPPLY Qty: 1 0RF Rx Instructions: As directed (DME) lancets 30 gauge [facility] [place] See Rx Instructions .Route Qty: 100 3RF Rx Instructions: Use 1 lancet twice a day aspirin 81 mg tablet,delayed release (DR/EC) 81 mg PO DAILY Qty: 30 11RF (DME) Shower Bench See Rx Instructions .Route .MEDSUPPLY Qty: 1 0RF Rx Instructions: As directed alcohol swabs [Alcohol Prep Pads] Pads, Medicated 1 pad topical BID 90 Days Qty: 200 2RF nystatin 100,000 unit/gram cream 1 appl topical DAILY 90 Days Qty: 15 1RF lactulose 10 gram/15 mL solution 15 ml PO DAILY Qty: 473 0RF albuterol sulfate [Ventolin HFA] 90 mcg/actuation HFA aerosol inhaler 2 puff inhalation Q6H PRN (Reason: shortness of breath or wheezing) 30 Days Qty: 8 2RF (DME) blood-glucose meter [FreeStyle Lite Meter] Kit See Rx Instructions .MEDSUPPLY Qty: 1 0RF Rx Instructions: tid (DME) pen needle, diabetic 32 gauge x 1/4 needle See Rx Instructions .ROUTE .MEDSUPPLY Qty: 50 Rx Instructions: As directed Lantus Solostar U-100 Insulin 100 unit/mL (3 mL) insulin pen 60 unit subcut QAM pyridoxine (vitamin B6) 100 mg tablet 100 mg PO DAILY 90 Days Qty: 90 3RF
[2023-01-22] MEDS: 0.9 % Sodium Chloride 1,000 ML 999 ML IVCONT (16:34)
[2023-01-22 16:51] LABS: Influenza A PCR NEGATIVE (Negative); Influenza B PCR NEGATIVE (Negative); Resp Syncy Virus RNA Qual PCR NEGATIVE (Negative); SARS COV2 PCR INHOUSE NEGATIVE (Negative)
[2023-01-22 16:58] LABS: MANUAL DIFF FLAG NO
[2023-01-22 17:00] LABS: Basophils Percent Auto 0.5 % (0-2); Eosinophils Absolute Auto 0.1 X10*3/uL (0.0-0.4); Eosinophils Percent Auto 1.1 % (0-4); Hemoglobin 11.4 g/dl (12.0-16.0); Imm Gran Abs Auto 0.02 X10*3/uL (0.00-0.03); Imm Gran Pct Auto 0.3 % (0.0-0.4); Lymphocytes Percent Auto 15.6 % (20-40); Mean Corpuscular HGB Conc 34.5 g/dl (31.0-35.0); Mean Corpuscular Hemoglobin 33.3 pg (27.0-33.0); Mean Corpuscular Volume 96.5 fL (80.0-98.0); Mean Platelet Volume 8.9 fL (9.4-12.3); Monocytes Absolute Auto 0.5 X10*3/uL (0.1-1.2); Monocytes Percent Auto 7.7 % (2-11); Neutrophils Absolute Auto 4.6 x10*3/uL (2.0-8.3); Neutrophils Percent Auto 74.8 % (45-73); Platelet Count 293 X10*3/uL (160-400); Red Blood Count 3.42 X10*6/uL (4.20-5.50); Red Cell Distribution Width 12.3 % (11.0-16.0); White Blood Count 6.1 X10*3/uL (4.8-10.8)
[2023-01-22 17:15] LABS: Alanine Aminotransferase 13 U/L (0-31); Albumin Level 3.7 g/dL (3.5-5.0); Alkaline Phosphatase 141 U/L (39-117); Anion Gap 14 (12-20); Aspartate Amino Transferase 20 U/L (5-31); Bilirubin Direct 0.2 mg/dL (0.0-0.5); Bilirubin Total 0.6 mg/dL (0.0-1.0); Blood Urea Nitrogen 22 mg/dL (9-16); Calcium 9.7 mg/dL (8.4-10.2); Carbon Dioxide 26 mmol/L (22-29); Chloride 107 mmol/L (96-108); Creatinine Clr Calc Pharmacy 46.8; Estimated Glomerular Filt Rate 38; Glucose Random 139 mg/dL (60-115); Lipase 20 U/L (8-78); Magnesium 1.6 mg/dL (1.6-2.6); Potassium 4.6 mmol/L (3.3-5.1); Sodium 142 mmol/L (135-145)
[2023-01-22 17:45] VITALS: BP 147/75; PULSE 50; RESP 20; O2SAT 100
[2023-01-22 17:45] LABS: Troponin-I High Sensitivity < 2.7 ng/L (<3.5-17.0)
[2023-01-22 18:30] VITALS: BP 136/70; BP 142/70; BP 157/70; PULSE 50; PULSE 58; PULSE 59
[2023-01-22 18:36] LABS: Appearance Urine Clear; Color Urine Yellow; Glucose Urine UA Negative (Negative); Leukocyte Esterase Urine Small (1+) (Negative); Nitrite Urine Negative (Negative); UMIC TRIGGER UACC YES; Urine Blood Negative (Negative); Urine Ketones Negative (Negative); Urine Protein Trace mg/dL (Neg-Trace)
[2023-01-22 18:55] LABS: Bacteria Urine None Seen (None Seen); Hyaline Casts Urine 0-2 /LPF (0-2); RBC Urine 0-2 /HPF (0-2); Squamous Epithelial Cell Urine 0-2 /HPF (0-2); UACC Culture Trigger YES; WBC Urine 0-5 /HPF (0-5)
--- NOTE | 2023-01-22 19:11 | PC.NURSE ---
This RN took over pt assignment at 1900. Pt ca&ox4, no signs of distress. Plan of care ongoing.
--- NOTE | 2023-01-22 19:17 | PC.NURSE ---
Per tech orthos complete
--- NOTE | 2023-01-22 19:28 | PC.NURSE ---
Pt advised she will be getting d/c. Pt calling to see if she can find a way home. Plan of care ongoing.
[2023-01-22 20:02] VITALS: BP 163/79; PULSE 60; RESP 16; TEMP 36.6; O2SAT 100
== END 2023-01-22 20:04 | disposition home or self-care (01) ==
PROVIDERS: Physician Assistant Medical; Emergency Provider Emergency Medicine; PCP Internal Medicine
DX: I95.1 Orthostatic hypotension (principal); E11.22 Type 2 diabetes mellitus with diabetic chronic kidney disease; I12.9 Hypertensive chronic kidney disease with stage 1 through stage 4 chronic kidney disease, or unspecified chronic kidney disease; N18.9 Chronic kidney disease, unspecified; E78.00 Pure hypercholesterolemia, unspecified; Z85.42 Personal history of malignant neoplasm of other parts of uterus; Z79.02 Long term (current) use of antithrombotics/antiplatelets; Z79.82 Long term (current) use of aspirin; Z79.899 Other long term (current) drug therapy; Z79.4 Long term (current) use of insulin; Z20.822 Contact with and (suspected) exposure to COVID-19; Z20.828 Contact with and (suspected) exposure to other viral communicable diseases
CPT/HCPCS: 0241U; 36415; 80048; 80076; 81001; 83690; 83735; 84484; 85025; 87086; 93005; 96360; 96361; 99284; 99285

== ENCOUNTER → 2023-01-22 15:26 | Outpatient (BNV) | payer OTHER, SELFPAY | PROVIDERS: Emergency Provider Emergency Medicine; PCP Internal Medicine; Visit Provider Internal Medicine Cardiovascular Disease | DX: R42 Dizziness and giddiness (principal) | CPT/HCPCS: 93010 ==

== ENCOUNTER 2023-03-18 08:06 | Outpatient (REF) | payer OTHER, SELFPAY ==
[2023-03-18 09:13] LABS: Creatinine Urine 187.14 mg/dL; Microalbum/Creatinine Ratio Ur 127.7 ug/mg cr (<30)
[2023-03-18 09:18] LABS: Alanine Aminotransferase 17 U/L (0-31); Albumin Level 3.9 g/dL (3.5-5.0); Alkaline Phosphatase 132 U/L (39-117); Anion Gap 14 (12-20); Aspartate Amino Transferase 21 U/L (5-31); Bilirubin Total 0.8 mg/dL (0.0-1.0); Blood Urea Nitrogen 20 mg/dL (9-16); Calcium 9.8 mg/dL (8.4-10.2); Carbon Dioxide 27 mmol/L (22-29); Chloride 103 mmol/L (96-108); Cholesterol 152 mg/dL (<200); Estimated Glomerular Filt Rate 35; Glucose Fasting 137 mg/dL (60-99); HDL Cholesterol 42 mg/dL (>40); LDL Cholesterol Calculated 92 mg/dL (<100); Potassium 4.2 mmol/L (3.3-5.1); Sodium 140 mmol/L (135-145); Total Protein 7.1 g/dL (6.5-8.0); Triglycerides 92 mg/dL (<150)
== END 2023-03-18 08:07 | disposition home or self-care (01) ==
LOC: HO.LAB 08:06
PROVIDERS: PCP Internal Medicine; Visit Provider Internal Medicine
DX: E11.9 Type 2 diabetes mellitus without complications (principal); E78.5 Hyperlipidemia, unspecified
CPT/HCPCS: 36415; 80053; 80061; 82043; 82570

== ENCOUNTER 2023-06-22 15:52 | Outpatient (AMB) | payer OTHER, SELFPAY ==
--- NOTE | 2023-06-22 16:00 | MHC.PC.OV ---
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 Required: No Accompanied by: Self / Same As Patient Allergies naproxen Allergy (Intermediate, Verified 06/22/23 16:17) stomach upset pravastatin [PRAVASTATIN] Allergy (Intermediate, Verified 06/22/23 16:17) RASH Medication List - Last Reconciled 06/22/23 by Caro Guevara MD albuterol sulfate 2.5 mg (3 mL) inhalation TID 90 days alcohol swabs (Alcohol Prep Pads) 1 pad topical BID 90 days aspirin 81 mg PO DAILY atorvastatin 80 mg PO DAILY 90 days blood sugar diagnostic (Medivouch Verio test strips) Use 1 test strip twice a day blood-glucose meter (FreeStyle Lite Meter kit) tid blood-glucose meter (OneTouch Verio Flex Meter) As directed diclofenac sodium 1% (Arthritis Pain (diclofenac)) 4 grams topical QID PRN 30 days ferrous sulfate 325 mg PO DAILY 90 days fluticasone propionate 50 mcg/actuation 1 spray intranasal DAILY 30 days insulin glargine 60 units subcut QAM lactulose 15 mL PO DAILY lancets Use 1 lancet twice a day lisinopril 40 mg PO DAILY loratadine 10 mg PO DAILY nystatin 1 appl topical DAILY 90 days omeprazole 20 mg PO DAILY ondansetron 4 mg PO Q8H PRN pen needle, diabetic As directed pioglitazone 45 mg PO DAILY pyridoxine (vitamin B6) 100 mg PO DAILY 90 days sennosides 17.2 mg (2 x 8.6 mg) PO BEDTIME PRN 90 days [Shower Bench As directed] [Shower bench As directed] Ventolin HFA 90 mcg/actuation (albuterol sulfate) 2 puffs inhalation Q6H PRN 30 days NS Tobacco use date assessed: 06/22/23 Fall risk assessment: No Falls in past year Last assessed Fall Risk: 06/22/23 Dental Screening Dental Screen Date: 06/22/23 Did you have a dental visit in the last 12 months?: Yes Did you have a dental problem in the last 6 months where you did not have access to dental care?: No Was dental information given to patient?: Patient has dentist HPI HPI Comments History of Present Illness Details This is a 68-year-old female with diabetes mellitus type 2, hypertension, pure hypercholesterolemia, history of uterine cancer and chronic kidney disease stage 3 comes today for follow-up on her conditions. A1c close to goal and has not had insulin over 6 months. Blood pressure stable. Last LDL was not on goal and this will be repeated. Had uterine cancer few years ago and is in remission. Last GFR was 35 and was told to avoid NSAIDs and keep blood pressure within goal. GFR will be repeated as well as all the other labs. No chest pain or shortness breath. [facility] Medical History (Updated 06/22/23 @ 17:05 by Caro Guevara MD) Morbid obesity Breast cancer screening by mammogram Physical exam CKD (chronic kidney disease) stage 3, GFR 30-59 ml/min B12 deficiency Postmenopausal Renal calculi Diabetes mellitus Essential hypertension Uterine cancer Pure hypercholesterolemia Lesion of pancreas Diverticulosis Chronic constipation GERD (gastroesophageal reflux disease) Hyperlipidemia Thyroid nodule Chronic kidney disease Migraine headache Arthritis Anxiety disorder Asthma Type 2 diabetes mellitus Hypertension Surgical History History of hysterectomy for malignancy Hx of endoscopy History of hernia repair Hx of cholecystectomy History of section History of colonoscopy History of lithotripsy Family History Father History of coronary artery disease History of diabetes mellitus, type II History of cancer Mother History of hypertension Social History Housing: Apartment Alcohol intake: never Patient Tobacco Use Status: Former Tobacco user Tobacco use type: Cigarette e-Cigarette/Vaping Use: Never Used Second Hand Smoke Exposure: No service: No Current occupational status: unemployed and disabled Cognitive needs: Yes Hearing needs: No Vision needs: Yes Questionnaire PHQ-9 Over the last 2 weeks, how often have you been bothered by any of the following problems? 1. Little interest or pleasure in doing things: not at all 2. Feeling down, depressed, or hopeless: not at all 3. Trouble falling or staying asleep, or sleeping too much: not at all 4. Feeling tired or having little energy: not at all 5. Poor appetite or overeating: not at all 6. Feeling bad about yourself - or that you are a failure or have let yourself or your family down: not at all 7. Trouble concentrating on things, such as reading the newspaper or watching television: not at all 8. Moving or speaking so slowly that other people could have noticed. Or the opposite - being so fidgety or restless that you have been moving around a lot more than usual: not at all 9. Thoughts that you would be better off or of hurting yourself in some way: not at all Total score: 0 Depression Screening Interpretation: Negative Depression Screening Done: Yes 82425 - PHQ-9 Billing: Yes Source: Developed by Drs. Goyo Ortiz, Katherin Martinez, Mj Tatum and colleagues, with an educational corinne from [employer]. Thrive Questionnaire Date Thrive assessed: 06/22/23 I am a: Patient What is your living situation today?: I have a steady place to live Within the past 12 months, did the food you bought not last and you didn't have the money to get more?: Never true Within the past 12 months, did you worry whether your food would run out before you got money to buy more?: Never true Do you have trouble paying for medicines?: No Do you have trouble getting transportation to medical appointments?: No Do you have trouble paying your heating and electricity bill?: No Do you have trouble taking care of your child, family member or friend?: No Do you have trouble with day-to-day activities such as bathing, preparing meals, shopping, managing finances, etc.?: No Are you currently unemployed and looking for a job?: No Are you interested in more education?: No Please select the resources that you would like help with: None Currently or been in a relationship where the following occur: no concerns reported THRIVE Score: 0 AUDIT C Alcohol Use Questionnaire (AUDIT-C) 1. How often do you have a drink containing alcohol?: Never Total Score: 0 Score Reviewed/Action Taken: No SHARONDA-7 AMB Questionnaire SHARONDA-7 Date SHARONDA - 7 assessed: 06/22/23 Feeling nervous, anxious, or on edge: 0 = Not at all Not being able to stop or control worryin = Not at all Worrying too much about different things: 0 = Not at all Trouble relaxin = Not at all Being so restless that it is hard to sit still: 0 = Not at all Becoming easily annoyed or irritable: 0 = Not at all Feeling afraid as if something awful might happen: 0 = Not at all Total SHARONDA-7 score (0-4 normal; 5-9 mild; 10-14 moderate; 15-21 severe): 0 Source: Developed by Drs. Goyo Ortiz, Katherin Martinez, Mj Tatum and colleagues, with an educational corinne from [employer]. SHARONDA-7 Assessment Billing SHARONDA-7 Assessment Tool: SHARONDA-7 Assessment 76745 Review of Systems Const All systems reviewed & are unremarkable except as noted in HPI and below Card Denies chest pain at rest, Denies chest pain with activity, Denies edema, Denies irregular heart rhythm, Denies claudication, Denies dyspnea, Denies dyspnea on exertion, Denies orthopnea, Denies paroxysmal nocturnal dyspnea and Denies slow heart rate Resp Denies cough, Denies dyspnea and Denies dyspnea on exertion Physical exam (Primary Care) Vital Signs: Last Vital Signs BP 120/70 06/22/23 16:01 BMI result Body Mass Index 36.9 Tobacco/Smoking Status: Tobacco use Status Tobacco use date assessed 06/22/23 06/22/23 16:04 Patient Tobacco Use Status Former Tobacco user 06/22/23 16:04 Tobacco use type Cigarette 06/22/23 16:04 e-Cigarette/Vaping Use Never Used 06/22/23 16:04 PHQ-9: PHQ-9 Score PHQ-9: Total score 0 06/22/23 16:20 Depression Screening Interpretation: Negative Thrive Assessment: Date of Thrive Assessment Date Thrive assessed 06/22/23 06/22/23 16:04 Currently or been in a relationship where the following occur: no concerns reported Resp Effort & Inspection: normal respiratory effort Auscultation: clear to auscultation bilaterally Cardio Jugular venous distension: no JVD Rate: regular rate Rhythm: regular rhythm Heart sounds: S1 normal heart sound present and S2 normal heart sound present Extrem General: Yes full ROM Results AMB Hemoglobin A1c AMB Hemoglobin A1c 7.1 % Last Edit by BERRY Lux on 06/22/23 16:09 Results Reviewed Results Reviewed: Laboratory Last Values Hgb A1c (Clinic) 7.1 % (4.0-6.0) H 06/22/23 16:04 Assessment and Plan Assessment & Plan (1) CKD (chronic kidney disease) stage 3, GFR 30-59 ml/min: Code(s): N18.30 - Chronic kidney disease, stage 3 unspecified Qualifiers: Chronic kidney disease stage 3 subtype: stage 3b (GFR 30-44) Qualified Code(s): N18.32 - Chronic kidney disease, stage 3b Plan: Avoid NSAIDs. Keep blood pressure within goal. (2) Diabetes mellitus: Code(s): E11.9 - Type 2 diabetes mellitus without complications Qualifiers: Diabetes mellitus type: type 2 Diabetes mellitus intermediate insulin use: with intermediate use Diabetes mellitus complication status: with hyperglycemia Qualified Code(s): E11.65 - Type 2 diabetes mellitus with hyperglycemia; Z79.4 - jail (current) use of insulin Plan: Continue Actos. Start insulin. A1c goal is equal or less than 7%. (3) Uterine cancer: Code(s): C55 - Malignant neoplasm of uterus, part unspecified Qualifiers: Malignant neoplasm of uterus location: unspecified site of uterus Qualified Code(s): C55 - Malignant neoplasm of uterus, part unspecified Plan: In remission. Follow-up with Hematology-Oncology. (4) Pure hypercholesterolemia: Code(s): E78.00 - Pure hypercholesterolemia, unspecified Plan: Continue statins. Repeat lipid panel. LDL goal is less than 70. (5) Essential hypertension: Code(s): I10 - Essential (primary) hypertension Plan: Continue lisinopril. Blood pressure goal is equal or less than 130/80. Orders: Orders AMB Hemoglobin A1c Today E11.65 - Type 2 diabetes mellitus with hyperglycemia, Z79.4 - jail (current) use of insulin IRON PROFILE Today D64.9 - Anemia, unspecified Microalbumin, Random (w Creat) Today E11.9 - Type 2 diabetes mellitus without complications Vitamin D 25-OH Total Today E55.9 - Vitamin D deficiency, unspecified Vitamin B12 and Folate Today E53.8 - Deficiency of other specified B group vitamins Comprehensive [place]. Panel Fast Today N18.30 - Chronic kidney disease, stage 3 unspecified Complete Blood Count Auto Diff Today D64.9 - Anemia, unspecified Lipid Panel Today E78.5 - Hyperlipidemia, unspecified Medications: Changed From insulin glargine 60 units subcut QAM To insulin glargine 20 units (0.2 mL) subcut QAM 90 days 18 mL 3RF From pen needle, diabetic As directed 50 ea To pen needle, diabetic Use 1 pen needle once a day 100 ea 3RF Coding Level of Care Code Est Pt Level 4 (56612) Diagnoses Stage 3b chronic kidney disease N18.32 Chronic kidney disease stage 3 subtype: stage 3b (GFR 30-44) Type 2 diabetes mellitus with hyperglycemia, with long-term current use of insulin E11.65; Z79.4 Diabetes mellitus type: type 2 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
[2023-06-22 16:01] VITALS: BP 120/70; BMI 36.9
== END 2023-06-22 16:34 | disposition home or self-care (01) ==
PROVIDERS: PCP Internal Medicine; Visit Provider Internal Medicine
DX: I12.9 Hypertensive chronic kidney disease with stage 1 through stage 4 chronic kidney disease, or unspecified chronic kidney disease (principal); N18.32 Chronic kidney disease, stage 3b; E11.65 Type 2 diabetes mellitus with hyperglycemia; Z79.4 Long term (current) use of insulin; C55 Malignant neoplasm of uterus, part unspecified; E78.00 Pure hypercholesterolemia, unspecified
CPT/HCPCS: 83036; 99214

== ENCOUNTER 2023-06-27 07:27 | Outpatient (REF) | payer OTHER, SELFPAY ==
[2023-06-27 08:23] LABS: Basophils Percent Auto 0.6 % (0-2); Eosinophils Absolute Auto 0.1 X10*3/uL (0.0-0.4); Eosinophils Percent Auto 1.7 % (0-4); Hematocrit 34.6 % (37.0-47.0); Hemoglobin 11.6 g/dl (12.0-16.0); Imm Gran Abs Auto 0.02 X10*3/uL (0.00-0.03); Imm Gran Pct Auto 0.3 % (0.0-0.4); Lymphocytes Absolute Auto 0.9 X10*3/uL (1.2-4.9); Lymphocytes Percent Auto 14.7 % (20-40); Mean Corpuscular HGB Conc 33.5 g/dl (31.0-35.0); Mean Corpuscular Hemoglobin 33.6 pg (27.0-33.0); Mean Corpuscular Volume 100.3 fL (80.0-98.0); Mean Platelet Volume 9.7 fL (9.4-12.3); Monocytes Absolute Auto 0.5 X10*3/uL (0.1-1.2); Monocytes Percent Auto 7.7 % (2-11); Neutrophils Absolute Auto 4.8 x10*3/uL (2.0-8.3); Red Blood Count 3.45 X10*6/uL (4.20-5.50); Red Cell Distribution Width 12.6 % (11.0-16.0)
[2023-06-27 08:24] LABS: Platelet Count 271 X10*3/uL (160-400); White Blood Count 6.4 X10*3/uL (4.8-10.8)
[2023-06-27 08:48] LABS: Creatinine Urine 193.51 mg/dL; Microalbum/Creatinine Ratio Ur 86.3 ug/mg cr (<30)
[2023-06-27 08:57] LABS: Alanine Aminotransferase 14 U/L (0-31); Albumin Level 3.9 g/dL (3.5-5.0); Alkaline Phosphatase 123 U/L (39-117); Anion Gap 16 (12-20); Aspartate Amino Transferase 24 U/L (5-31); Bilirubin Total 0.7 mg/dL (0.0-1.0); Blood Urea Nitrogen 25 mg/dL (9-16); Calcium 9.4 mg/dL (8.4-10.2); Carbon Dioxide 21 mmol/L (22-29); Chloride 107 mmol/L (96-108); Cholesterol 193 mg/dL (<200); Estimated Glomerular Filt Rate 31; Glucose Fasting 143 mg/dL (60-99); HDL Cholesterol 42 mg/dL (>40); Iron 81 mcg/dL (30-160); LDL Cholesterol Calculated 135 mg/dL (<100); Percent Iron Saturation 35 % (15-50); Potassium 4.3 mmol/L (3.3-5.1); Sodium 140 mmol/L (135-145); Total Iron Binding Capacity 233 mcg/dL (228-428); Total Protein 7.4 g/dL (6.5-8.0); Triglycerides 82 mg/dL (<150); Unsaturated Iron Binding 152 ug/dL
[2023-06-27 09:13] LABS: Vitamin D 25-OH Total 17.1 ng/mL (>30)
[2023-06-27 09:18] LABS: Folate 5.7 ng/mL (> or = 4.0); Vitamin B12 230 pg/mL (200-900)
== END 2023-06-27 07:28 | disposition home or self-care (01) ==
LOC: HO.LAB 07:27
PROVIDERS: PCP Internal Medicine; Visit Provider Internal Medicine
DX: D64.9 Anemia, unspecified (principal); E55.9 Vitamin D deficiency, unspecified; E11.42 Type 2 diabetes mellitus with diabetic polyneuropathy; E53.8 Deficiency of other specified B group vitamins; N18.30 Chronic kidney disease, stage 3 unspecified; E78.5 Hyperlipidemia, unspecified
CPT/HCPCS: 36415; 80053; 80061; 82043; 82306; 82570; 82607; 82746; 83540; 85025

== ENCOUNTER 2023-07-06 11:51 | Outpatient (REF) | payer OTHER, SELFPAY | END 2023-07-06 11:52 | disposition home or self-care (01) | LOC: HO.MAMMO 11:51 | PROVIDERS: PCP Internal Medicine; Visit Provider Internal Medicine | DX: Z12.31 Encounter for screening mammogram for malignant neoplasm of breast (principal) | CPT/HCPCS: 77063; 77067 ==

== ENCOUNTER → 2023-07-06 12:15 | Outpatient (BNV) | payer OTHER, SELFPAY | PROVIDERS: PCP Internal Medicine; Visit Provider Radiology Diagnostic Radiology | DX: Z12.31 Encounter for screening mammogram for malignant neoplasm of breast (principal) | CPT/HCPCS: 77063; 77067 ==

== ENCOUNTER 2023-10-24 09:05 | Outpatient (REF) | payer OTHER, SELFPAY ==
--- NOTE | ~2023-10-24 | US_ITS ---
EXAMINATION: US RETROPERITONEAL LIMITED (RENAL ONLY) CLINICAL INFORMATION: Calculus of kidney. COMPARISON: Renal ultrasound 09/27/2022 and 06/04/2022. CT abdomen and pelvis 08/17/2019. X-ray abdomen KUB 11/22/2018 and 06/09/2016. TECHNIQUE: Real-time imaging of the kidneys. FINDINGS: RIGHT KIDNEY: 9.8 x 3.6 x 3.8 cm (SAG x AP x TRV). The kidney is normal in size and echogenicity. There are persistent lobulations. Renal cortical thickness is normal. No focal parenchymal lesions or hydronephrosis. At the interpolar aspect, 3 mm and 3 mm nonobstructing calculi are seen. LEFT KIDNEY: 9.6 x 4.1 x 3.1 cm (SAG x AP x TRV). The kidney is normal in size and echogenicity. There are persistent lobulations. Renal cortical thickness is normal. There are echogenic foci, which do not meet formal criteria for calculi. No calculi or focal parenchymal lesions. No hydronephrosis. US/US renal BI IMPRESSION: There are nonobstructing right renal calculi. No convincing left renal calculus is seen. No hydronephrosis is seen bilaterally. Electronically signed by: Tang Lin MD 10/27/2023 02:32 PM EDT
== END 2023-10-24 09:06 | disposition home or self-care (01) ==
LOC: HO.US 09:05
PROVIDERS: PCP Internal Medicine; Visit Provider Nurse Practitioner Family
DX: N20.0 Calculus of kidney (principal)
CPT/HCPCS: 76775

== ENCOUNTER 2023-11-21 14:52 | Outpatient (AMB) | payer OTHER, SELFPAY ==
[2023-11-21 15:05] VITALS: BP 118/70; BMI 35.4
--- NOTE | 2023-11-21 15:05 | A.OFFPC_ITS ---
Vital Signs 11/21/23 15:05 Height 5 ft 5 in Weight 213 lb BMI 35.4 BP 118/70 Blood Pressure Location Lt brachial Position Sitting Intake Visit Reasons: physical exam Intake Note: Patient here for an Annual Physical Exam Music Promoter Required: No Accompanied by: Self / Same As Patient Allergies naproxen Allergy (Intermediate, Verified 11/21/23 15:20) stomach upset pravastatin [PRAVASTATIN] Allergy (Intermediate, Verified 11/21/23 15:20) RASH Medication List - Last Reconciled 11/21/23 by Caro Guevara MD albuterol sulfate 2.5 mg (3 mL) inhalation TID 90 days alcohol swabs (Alcohol Prep Pads) 1 pad topical BID 90 days aspirin 81 mg PO DAILY atorvastatin 80 mg PO DAILY 90 days blood sugar diagnostic ([employer] Ver[employer] test strips) Use 1 test strip twice a day blood-glucose meter (FreeStyle Lite Meter kit) tid blood-glucose meter (OneTouch Verio Flex Meter) As directed diclofenac sodium 1% (Arthritis Pain (diclofenac)) 4 grams topical QID PRN 30 d ays ferrous sulfate 325 mg PO DAILY 90 days fluticasone propionate 50 mcg/actuation 1 spray intranasal DAILY 30 days insulin glargine 20 units (0.2 mL) subcut QAM 90 days lactulose 15 mL PO DAILY lancets Use 1 lancet twice a day lisinopril 40 mg PO DAILY loratadine 10 mg PO DAILY nystatin 1 appl topical DAILY 90 days omeprazole 20 mg PO DAILY ondansetron 4 mg PO Q8H PRN pen needle, diabetic Use 1 pen needle once a day pioglitazone 45 mg PO DAILY pyridoxine (vitamin B6) 100 mg PO DAILY 90 days sennosides 17.2 mg (2 x 8.6 mg) PO BEDTIME PRN 90 days [Shower Bench As directed] [Shower bench As directed] Ventolin HFA 90 mcg/actuation (albuterol sulfate) 2 puffs inhalation Q6H PRN 30 days NS Tobacco use date assessed: 06/22/23 Fall risk assessment: No Falls in past year Last assessed Fall Risk: 11/21/23 Dental Screening Dental Screen Date: 06/22/23 HPI HPI Comments History of Present Illness Details This is a 68-year-old female with diabetes mellitus type 2 and chronic kidney disease stage 3 that comes for her physical exam. A1c within goal. Last diabetic eye exam was this month. She walks with a cane for gait stability due to lumbar pain. Complains of anxiety due to upstairs neighbor which keeps throwing balls at 23:00. DEXA scan done 2022. Mammogram done 2023 was normal. Colonoscopy done 2019. No chest pain or shortness on breath. Last GFR was 31 and this will be monitor. [facility] Medical History Morbid obesity Breast cancer screening by mammogram Physical exam CKD (chronic kidney disease) stage 3, GFR 30-59 ml/min B12 deficiency Postmenopausal Renal calculi Diabetes mellitus Essential hypertension Uterine cancer Pure hypercholesterolemia Lesion of pancreas Diverticulosis Chronic constipation GERD (gastroesophageal reflux disease) Hyperlipidemia Thyroid nodule Chronic kidney disease Migraine headache Arthritis Anxiety disorder Asthma Type 2 diabetes mellitus Hypertension Surgical History History of hysterectomy for malignancy Hx of endoscopy History of hernia repair Hx of cholecystectomy History of section History of colonoscopy History of lithotripsy Family History Father History of coronary artery disease History of diabetes mellitus, type II History of cancer Mother History of hypertension Social History Housing: Apartment Alcohol intake: never Patient Tobacco Use Status: Former Tobacco user Tobacco use type: Cigarette e-Cigarette/Vaping Use: Never Used Second Hand Smoke Exposure: No service: No Current occupational status: unemployed and disabled Cognitive needs: Yes Hearing needs: No Vision needs: Yes Questionnaire PHQ-9 Over the last 2 weeks, how often have you been bothered by any of the following problems? 1. Little interest or pleasure in doing things: not at all 2. Feeling down, depressed, or hopeless: not at all 3. Trouble falling or staying asleep, or sleeping too much: several days 4. Feeling tired or having little energy: several days 5. Poor appetite or overeating: several days 6. Feeling bad about yourself - or that you are a failure or have let yourself or your family down: several days 7. Trouble concentrating on things, such as reading the newspaper or watching television: not at all 8. Moving or speaking so slowly that other people could have noticed. Or the opposite - being so fidgety or restless that you have been moving around a lot more than usual: not at all 9. Thoughts that you would be better off or of hurting yourself in some way: not at all Total score: 4 Depression Screening Interpretation: Positive Depression Screening Follow-up: Existing condition and Follow-up Visit Requested Depression Screening Done: Yes 39292 - PHQ-9 Billing: Yes Source: Developed by Drs. Goyo Ortiz, Katherin Martinez, Mj Tatum and colleagues, with an educational corinne from walkby. Thrive Questionnaire Date Thrive assessed: 06/22/23 I am a: Patient What is your living situation today?: I have a steady place to live Within the past 12 months, did the food you bought not last and you didn't have the money to get more?: Never true Within the past 12 months, did you worry whether your food would run out before you got money to buy more?: Never true Do you have trouble paying for medicines?: No Do you have trouble getting transportation to medical appointments?: No Do you have trouble paying your heating and electricity bill?: No Do you have trouble taking care of your child, family member or friend?: Yes Do you have trouble with day-to-day activities such as bathing, preparing meals, shopping, managing finances, etc.?: Yes Are you currently unemployed and looking for a job?: No Are you interested in more education?: No Please select the resources that you would like help with: None Currently or been in a relationship where the following occur: I choose not to answer THRIVE Score: 0 AUDIT C Alcohol Use Questionnaire (AUDIT-C) 1. How often do you have a drink containing alcohol?: Never Total Score: 0 Score Reviewed/Action Taken: No SHARONDA-7 AMB Questionnaire SHARONDA-7 Date SHARONDA - 7 assessed: 06/22/23 Feeling nervous, anxious, or on edge: 1 = Several days Not being able to stop or control worryin = Several days Worrying too much about different things: 1 = Several days Trouble relaxin = Several days Being so restless that it is hard to sit still: 1 = Several days Becoming easily annoyed or irritable: 1 = Several days Feeling afraid as if something awful might happen: 0 = Not at all Total SHARONDA-7 score (0-4 normal; 5-9 mild; 10-14 moderate; 15-21 severe): 6 Source: Developed by Drs. Goyo Ortiz, Katherin Martinez, jM Tatum and colleagues, with an educational corinne from walkby. SHARONDA-7 Assessment Billing SHARONDA-7 Assessment Tool: SHARONDA-7 Assessment 43891 Review of Systems Const All systems reviewed & are unremarkable except as noted in HPI and below Card Denies chest pain at rest, Denies chest pain with activity, Denies edema, Denies irregular heart rhythm, Denies claudication, Denies dyspnea, Denies dyspnea on exertion, Denies orthopnea, Denies paroxysmal nocturnal dyspnea and Denies slow heart rate Resp Denies cough, Denies dyspnea and Denies dyspnea on exertion GI Denies abdominal pain, Denies change in bowel habits, Denies excessive flatus, Denies nausea and Denies vomiting Denies urinary incontinence, Denies urinary hesitancy and Denies urinary urgency Neuro Denies lack of coordination Physical exam (Primary Care) Vital Signs: Last Vital Signs BP 118/70 11/21/23 15:05 BMI result Body Mass Index 35.4 BMI Assessment/Plan discussion: High BMI High, discussed plan: lifestyle, weight reduction, dietary and physical activity Tobacco/Smoking Status: Tobacco use Status Tobacco use date assessed 06/22/23 11/21/23 15:09 Patient Tobacco Use Status Former Tobacco user 11/21/23 15:09 Tobacco use type Cigarette 11/21/23 15:09 e-Cigarette/Vaping Use Never Used 11/21/23 15:09 PHQ-9: PHQ-9 Score PHQ-9: Total score 4 11/21/23 15:29 Depression Screening Interpretation: Positive Depression Screening Follow-up: Existing condition and Follow-up Visit Requested Thrive Assessment: Date of Thrive Assessment Date Thrive assessed 06/22/23 11/21/23 15:09 Currently or been in a relationship where the following occur: I choose not to answer Const Limitations: ambulation with cane HENMT Head: Yes normal to inspection, Yes normocephalic and Yes atraumatic Ears: external ears normal Eyes General: appearance normal, both eyes and all related structures Eyelids: Yes eyelids normal Conjunctivae: conjunctivae normal Neck Neck: Yes normal visual inspection and Yes supple Resp Effort & Inspection: normal respiratory effort Auscultation: clear to auscultation bilaterally Cardio Jugular venous distension: no JVD Rate: regular rate Rhythm: regular rhythm Heart sounds: S1 normal heart sound present and S2 normal heart sound present GI Inspection: Yes normal to inspection Palpation (GI): Soft to palpation and nontender Auscultation: normal bowel sounds Skin General skin exam: no rashes or lesions noted Neuro General: no focal motor deficits Extrem General: Yes full ROM Psych Appearance: grossly normal Office Procedures Flu Questionnaire Does the patient have a severe egg allergy?: No Results AMB Hemoglobin A1c AMB Hemoglobin A1c 6.7 % Last Edit by BERRY Lux on 11/21/23 15:1 2 Immunizations Fluarix Triv [id number] (PF) 45 mcg (15 mcg x 3)/0.5 mL IM syringe Performing Provider: Caro Guevara MD [facility] Documented (not given) by: BERRY Lux on 11/21/23 15:10 Reason Not Given: Patient Refused Results Reviewed Results Reviewed: Laboratory Last Values Hgb A1c (Clinic) 6.7 % (4.0-6.0) H 11/21/23 15:09 Coding Level of Care Code Est Pt Prev Care >65y(77797) Diagnoses Physical exam Z00.00 Stage 3b chronic kidney disease N18.32 Chronic kidney disease stage 3 subtype: stage 3b (GFR 30-44) Type 2 diabetes mellitus with hyperglycemia, with long-term current use of insulin E11.65; Z79.4 Diabetes mellitus type: type 2 Diabetes mellitus joint terminal attack controller insulin use: with joint terminal attack controller use Diabetes mellitus complication status: with hyperglycemia Additional Codes SHARONDA-7 Assessment Billing - SHARONDA-7 Assessment Tool: SHARONDA-7 Assessment 14199 ([id number]) Time Spent (min) 30 Assessment & Plan Assessment & Plan (1) Physical exam: Code(s): Z00.00 - Encounter for general adult medical examination without abnormal findings Category: Medical Plan: Repeat in a year. (2) CKD (chronic kidney disease) stage 3, GFR 30-59 ml/min: Code(s): N18.30 - Chronic kidney disease, stage 3 unspecified Category: Medical Qualifiers: Chronic kidney disease stage 3 subtype: stage 3b (GFR 30-44) Qualified Code(s): N18.32 - Chronic kidney disease, stage 3b Plan: Avoid NSAIDs. Keep blood pressure within goal being less than 130/80. (3) Diabetes mellitus: Code(s): E11.9 - Type 2 diabetes mellitus without complications Category: Medical Qualifiers: Diabetes mellitus type: type 2 Diabetes mellitus joint terminal attack controller insulin use: with joint terminal attack controller use Diabetes mellitus complication status: with hyperglycemia Qualified Code(s): E11.65 - Type 2 diabetes mellitus with hyperglycemia; Z79.4 - USP (current) use of insulin Plan: Continue Actos. A1c goal is equal or less than 7%. Orders: Orders Lipid Panel 4 Months E78.5 - Hyperlipidemia, unspecified Comprehensive [place]. Panel Fast 4 Months N18.32 - Chronic kidney disease, stage 3b Influenza [id number] Immunization Today Z23 - Encounter for immunization AMB Hemoglobin A1c Today E11.65 - Type 2 diabetes mellitus with hyperglycemia, Z79.4 - buttermaker helper (current) use of insulin Complete Blood Count Auto Diff 4 Months D64.9 - Anemia, unspecified IRON PROFILE 4 Months D64.9 - Anemia, unspecified Microalbumin, Random (w Creat) 4 Months R80.9 - Proteinuria, unspecified Vitamin B12 and Folate 4 Months E53.8 - Deficiency of other specified B group vitamins Vitamin D 25-OH Total 4 Months E55.9 - Vitamin D deficiency, unspecified
== END 2023-11-21 15:37 | disposition home or self-care (01) ==
PROVIDERS: PCP Internal Medicine; Visit Provider Internal Medicine
DX: Z00.00 Encounter for general adult medical examination without abnormal findings (principal); N18.32 Chronic kidney disease, stage 3b; E11.65 Type 2 diabetes mellitus with hyperglycemia; Z79.4 Long term (current) use of insulin; Z23 Encounter for immunization

== ENCOUNTER → 2023-11-21 14:52 | Outpatient (BNVA) | payer OTHER, SELFPAY | PROVIDERS: PCP Internal Medicine; Visit Provider Internal Medicine | DX: Z00.01 Encounter for general adult medical examination with abnormal findings (principal); N18.32 Chronic kidney disease, stage 3b; E11.65 Type 2 diabetes mellitus with hyperglycemia; Z79.4 Long term (current) use of insulin | CPT/HCPCS: 83036; 90471; 96127; 99397 ==

== ENCOUNTER 2024-01-04 08:25 | Outpatient (AMB) | payer OTHER, SELFPAY ==
--- NOTE | 2024-01-04 08:34 | MHC.OFFVIS ---
Intake Visit Reasons: US follow up r/s(set) Intake Note: Patient presents today for follow up on: kidney stones and ultrasound results Imaging Completed: 10/24/23 Urology Medications: Vitamin B6 Blood Thinner: Aspirin Ballet Dancer Required: Yes Ballet Dancer Name: Alvin [id number] Accompanied by: Self / Same As Patient Allergies naproxen Allergy (Intermediate, Verified 01/04/24 08:50) stomach upset pravastatin [PRAVASTATIN] Allergy (Intermediate, Verified 01/04/24 08:50) RASH Medication List - Last Reconciled 01/04/24 by OCHOA Patricio- albuterol sulfate 2.5 mg (3 mL) inhalation TID 90 days alcohol swabs (Alcohol Prep Pads) 1 pad topical BID 90 days aspirin 81 mg PO DAILY atorvastatin 80 mg PO DAILY 90 days blood sugar diagnostic ([employer] Verio test strips) Use 1 test strip twice a day blood-glucose meter (FreeStyle Lite Meter kit) tid blood-glucose meter (OneTouch Verio Flex Meter) As directed diclofenac sodium 1% (Arthritis Pain (diclofenac)) 4 grams topical QID PRN 30 days empagliflozin (Jardiance) 10 mg PO DAILY ferrous sulfate 325 mg PO DAILY 90 days fluticasone propionate 50 mcg/actuation 1 spray intranasal DAILY 30 days insulin glargine 20 units (0.2 mL) subcut QAM 90 days lactulose 15 mL PO DAILY lancets Use 1 lancet twice a day lisinopril 40 mg PO DAILY loratadine 10 mg PO DAILY nystatin 1 appl topical DAILY 90 days omeprazole 20 mg PO DAILY ondansetron 4 mg PO Q8H PRN pen needle, diabetic Use 1 pen needle once a day pioglitazone 45 mg PO DAILY pyridoxine (vitamin B6) 100 mg PO DAILY 90 days sennosides 17.2 mg (2 x 8.6 mg) PO BEDTIME PRN 90 days [Shower Bench As directed] [Shower bench As directed] Ventolin HFA 90 mcg/actuation (albuterol sulfate) 2 puffs inhalation Q6H PRN 30 days NS HPI Comments Details: Vero is a very pleasant 68 year-old Danish-speaking female patient of Dr. Tapia. She has a past medical history of chronic kidney disease stage III, vitamin B12 deficiency, renal calculi, diabetes mellitus, hypertension, uterine cancer, diverticulosis, chronic constipation, GERD, hyperlipidemia, migraines, arthritis, anxiety, and asthma. She presents to the office today for follow-up of her nephrolithiasis. In discussion with the patient today she reports to be doing and feeling well. Recent renal imaging results reviewed with the patient today. Right kidney with 2 interpolar 3 mm calculi otherwise no hydronephrosis or lesions noted bilaterally. When asked patient reports to be drinking plenty of water daily. She discusses adding lemon juice to water daily. Patient discusses having previous renal calculi surgical interventions in the past with Dr. Anderson. She reports having stopped vitamin B6 as she felt this was making her have an upset stomach. We discussed decrease stone burden since last imaging. Discussed continuation with surveillance monitoring. We discussed further metabolic workup to include 24 hour urine collection. When asked she denies urinary urgency, urinary frequency, incontinence, nocturia, hematuria, dysuria, foul smelling urine, changes to urinary stream, flank pain, fever, and or chills. She is happy with her current voiding parameters. In office urinalysis results reviewed with the patient. She otherwise offers no other issues or concerns at this time. [facility] Medical History Morbid obesity Breast cancer screening by mammogram Physical exam CKD (chronic kidney disease) stage 3, GFR 30-59 ml/min B12 deficiency Postmenopausal Renal calculi Diabetes mellitus Essential hypertension Uterine cancer Pure hypercholesterolemia Lesion of pancreas Diverticulosis Chronic constipation GERD (gastroesophageal reflux disease) Hyperlipidemia Thyroid nodule Chronic kidney disease Migraine headache Arthritis Anxiety disorder Asthma Type 2 diabetes mellitus Hypertension Surgical History History of hysterectomy for malignancy Hx of endoscopy History of hernia repair Hx of cholecystectomy History of section History of colonoscopy History of lithotripsy Family History Father History of coronary artery disease History of diabetes mellitus, type II History of cancer Mother History of hypertension Social History Housing: Apartment Alcohol intake: never Patient Tobacco Use Status: Former Tobacco user Tobacco use type: Cigarette e-Cigarette/Vaping Use: Never Used Second Hand Smoke Exposure: No service: No Current occupational status: unemployed and disabled Cognitive needs: Yes Hearing needs: No Vision needs: Yes Review of Systems Eyes Reports no additional complaints ENT Reports no additional complaints Card Reports as per [facility] Resp Reports as per [facility] GI Reports as per [facility] Reports as per [facility] Musc Reports as per [facility] Neuro Reports as per [facility] Psych Reports as per [facility] Endo Reports as per [facility] Physical Exam Const General: cooperative, healthy appearing, comfortable, no acute distress, well developed, alert and awake Nutritional Appearance: overweight Orientation/consciousness: patient oriented x3 Limitations: ambulation with cane HEENT Head: Yes normal to inspection, Yes normocephalic and Yes atraumatic Ears: hearing grossly normal bilaterally Eyes General: appearance normal, both eyes and all related structures Neck Neck: Yes normal visual inspection and Yes trachea midline Chest Chest palpation & inspection: normal inspection of the chest Resp Effort & Inspection: normal respiratory effort and able to speak in complete sentences Cardio Rate: regular rate GI Inspection: Yes normal to inspection General: Yes no CVA tenderness Back/Spine/Pelvis Back: no CVA tenderness Skin General skin exam: no rashes or lesions noted Neuro General: patient oriented x3 Extrem General: Yes normal to inspection Psych Appearance: grossly normal and well kempt Mental Status: mental status grossly normal Speech and movement: Normal speech and movement present and Clear speech present Affect: normal affect Attitude: cooperative Thought process: Normal thought process present Thought content: Normal thought content present Insight: Fair insight present (Psych) Judgement: Fair judgement present (Psych) Results AMB Urinalysis, Automated UA Leukoctes 15 Nitesh/uL Last Edit by Mary Evans on 01/04/24 08:47 UA Nitrite Last Edit by Mary Evans on 01/04/24 08:47 UA Urobilinogen 0.2 mg/dL Last Edit by Mary Evans on 01/04/24 08:47 UA Protein 30 mg/dL Last Edit by BallLogiclucas Evans on 01/04/24 08:47 UA pH 5.5 Last Edit by Mary Evans on 01/04/24 08:47 UA Blood 25 Theodore/uL Last Edit by Mary Evans on 01/04/24 08:47 UA Specific [place] 1.030 Last Edit by Mary Evans on 01/04/24 08:47 UA Ketone Last Edit by Mary Evans on 11/27/24 08:47 UA Bilirubin 0 mg/dL Last Edit by Mary Evans on 01/04/24 08:47 UA Glucose 100 mg/dL Last Edit by Mary Evans on 01/04/24 08:47 Results Reviewed Results Reviewed: Laboratory Last Values Urine pH (Auto) 5.5 01/04/24 08:37 Specific [place] (Auto) 1.030 01/04/24 08:37 Urine Protein (Auto) 30 mg/dL 01/04/24 08:37 Glucose (UA)(Auto) 100 mg/dL 01/04/24 08:37 Urine Blood (Auto) 25 Theodore/uL 01/04/24 08:37 Urine Bilirubin (Auto) 0 mg/dL 01/04/24 08:37 Urine Urobilinogen (Auto) 0.2 mg/dL 01/04/24 08:37 Leukocyte Esterase (Auto) 15 Nitesh/uL 01/04/24 08:37 Date of Service: 10/24/23 EXAMINATION: US RETROPERITONEAL LIMITED (RENAL ONLY) FINDINGS: RIGHT KIDNEY: 9.8 x 3.6 x 3.8 cm (SAG x AP x TRV). The kidney is normal in size and echogenicity. There are persistent lobulations. Renal cortical thickness is normal. No focal parenchymal lesions or hydronephrosis. At the interpolar aspect, 3 mm and 3 mm nonobstructing calculi are seen. LEFT KIDNEY: 9.6 x 4.1 x 3.1 cm (SAG x AP x TRV). The kidney is normal in size and echogenicity. There are persistent lobulations. Renal cortical thickness is normal. There are echogenic foci, which do not meet formal criteria for calculi. No calculi or focal parenchymal lesions. No hydronephrosis. IMPRESSION: There are nonobstructing right renal calculi. No convincing left renal calculus is seen. No hydronephrosis is seen bilaterally. Assessment & Plan Assessment & Plan (1) Renal calculi: Code(s): N20.0 - Calculus of kidney Category: Medical Plan In office urinalysis results reviewed with the patient today; as noted above. Recent renal imaging results reviewed with the patient today. Discussed, stress, and encouraged on the importance of drinking plenty of water daily. Discussed continuing to manage diabetes for overall health and well-being. Stop vitamin B6 as discussed and prescribed. Continue adding 1 oz of lemon juice to water daily. Renal ultrasound in 1 year. Follow-up in 1 year with imaging to be completed prior; or sooner with any issues, concerns, and or questions. Orders: Orders AMB Urinalysis Automated Today Z13.9 - Encounter for screening, unspecified US renal BI 1 Year N20.0 - Calculus of kidney Patient Instructions: The patient had an opportunity to ask questions regarding the treatment plan. All questions were answered. Physical exam, labs, and imaging were discussed and reviewed in detail. As well as risks, benefits, and discussion of treatment choices. No major barriers to understanding were identified. The patient expressed understanding and agreement with the above treatment plan. The patient was made aware they should contact our office by phone for worsening of their current condition, the appearance of new symptoms, or with any questions or concerns. Compliance is encouraged with any medications and follow up testing that is ordered. It is a privilege to be allowed the opportunity to participate in? your urological care.? Again, if you have any questions or concerns If you have any questions or concerns please do not hesitate to contact me. The office is [phone]. This note is constructed using voice recognition software. While every effort has been made to ensure accuracy sonography technologist errors may have been included. Yours sincerely, JORY Patricio Coding Level of Care Code Est Pt Level 3 (36528) Complex EM visit Add On G2211 Diagnoses Renal calculi N20.0
== END 2024-01-04 09:02 | disposition home or self-care (01) ==
PROVIDERS: PCP Internal Medicine; Visit Provider Nurse Practitioner Family
DX: N20.0 Calculus of kidney (principal); Z13.9 Encounter for screening, unspecified
CPT/HCPCS: 99213; G2211

== ENCOUNTER → 2024-01-04 08:25 | Outpatient (BNVA) | payer OTHER, SELFPAY | PROVIDERS: PCP Internal Medicine; Visit Provider Nurse Practitioner Family | DX: N20.0 Calculus of kidney (principal) | CPT/HCPCS: 81003; 99212 ==

== ENCOUNTER 2024-11-23 10:32 | Outpatient (REF) | payer OTHER, SELFPAY ==
[2024-11-23 12:51] LABS: Hematocrit 39.1 % (37.0-47.0); Hemoglobin 13.2 g/dl (12.0-16.0); Imm Gran Abs Auto 0.03 X10*3/uL (0.00-0.03); Imm Gran Pct Auto 0.4 % (0.0-0.4); Lymphocytes Absolute Auto 1.2 X10*3/uL (1.2-4.9); MANUAL DIFF FLAG SCAN; Mean Corpuscular HGB Conc 33.8 g/dl (31.0-35.0); Mean Corpuscular Hemoglobin 33.2 pg (27.0-33.0); Mean Corpuscular Volume 98.5 fL (80.0-98.0); NRBC Abs Auto 0.000 X10*3/uL (0.0-0.012); NRBC Pct Auto 0.0 /100WBC (0.0-0.2); PLT CLUMP 1; Red Blood Count 3.97 X10*6/uL (4.20-5.50); SCAN SMEAR FLAG 1
[2024-11-23 14:04] LABS: Alanine Aminotransferase 22 U/L (0-31); Albumin Level 4.4 g/dL (3.5-5.0); Alkaline Phosphatase 169 U/L (39-117); Anion Gap 15 (12-20); Aspartate Amino Transferase 30 U/L (5-31); Blood Urea Nitrogen 26 mg/dL (9-16); Calcium 9.7 mg/dL (8.4-10.2); Carbon Dioxide 22 mmol/L (22-29); Chloride 104 mmol/L (96-108); Cholesterol 181 mg/dL (<200); Estimated Glomerular Filt Rate 34; HDL Cholesterol 43 mg/dL (>40); Iron 45 mcg/dL (30-160); Percent Iron Saturation 19 % (15-50); Potassium 4.6 mmol/L (3.3-5.1); Sodium 136 mmol/L (135-145); Total Iron Binding Capacity 231 mcg/dL (228-428); Total Protein 7.8 g/dL (6.5-8.0); Triglycerides 120 mg/dL (<150); Unsaturated Iron Binding 186 ug/dL
[2024-11-23 14:06] LABS: Platelet Count 222 X10*3/uL (160-400); White Blood Count 7.7 X10*3/uL (4.8-10.8)
[2024-11-23 14:32] LABS: Microalbum/Creatinine Ratio Ur 109.7 ug/mg cr (<30)
[2024-11-23 15:12] LABS: Folate 8.3 ng/mL (> or = 4.0); Vitamin B12 187 pg/mL (200-900)
== END 2024-11-23 10:33 | disposition home or self-care (01) ==
LOC: HO.LAB 10:32
PROVIDERS: PCP Internal Medicine; Visit Provider Internal Medicine
DX: N18.32 Chronic kidney disease, stage 3b (principal); D63.1 Anemia in chronic kidney disease; E53.8 Deficiency of other specified B group vitamins; E78.5 Hyperlipidemia, unspecified; E55.9 Vitamin D deficiency, unspecified; R80.9 Proteinuria, unspecified
CPT/HCPCS: 36415; 80053; 80061; 82043; 82306; 82570; 82607; 82746; 83540; 85025

== ENCOUNTER 2024-11-28 14:19 | Outpatient (AMB) | payer OTHER, SELFPAY ==
[2024-11-28 15:11] VITALS: BP 122/70; PULSE 56; RESP 18; TEMP 36.3; O2SAT 97; BMI 35.6
--- NOTE | 2024-11-28 15:11 | A.OFFPC_ITS ---
Vital Signs 11/28/24 15:11 Height 5 ft 5 in Weight 214 lb BMI 35.6 BP 122/70 Blood Pressure Location Lt brachial Position Sitting Respiration 18 Pulse 56 Pulse Source Pulse Oximeter Temp 97.3 F Temp Source Temporal Artery Scan Pulse Oximetry (%) 97 Oxygen Delivery Method Room Air Intake Visit Reasons: Annual Exam- A1C needed. Client Analyst Required: No Accompanied by: Self / Same As Patient Allergies naproxen Allergy (Intermediate, Verified 11/28/24 15:33) stomach upset pravastatin (PRAVASTATIN) Allergy (Intermediate, Verified 11/28/24 15:33) RASH Medication List - Last Reconciled 11/28/24 by Caro Guevara MD albuterol sulfate 2.5 mg (3 mL) inhalation TID 90 days alcohol swabs (Alcohol Prep Pads) 1 pad topical BID 90 days aspirin 81 mg PO DAILY atorvastatin 80 mg PO DAILY 90 days blood sugar diagnostic (OneTouch Verio test strips) Use 1 test strip twice a day blood sugar diagnostic (FreeStyle Lite Strips) As directed once daily blood-glucose meter (OneTouch Verio Flex Meter) As directed blood-glucose meter (FreeStyle Lite Meter kit) tid diclofenac sodium 1% (Arthritis Pain (diclofenac)) 4 grams topical QID PRN 30 days empagliflozin (Jardiance) 10 mg PO DAILY ferrous sulfate 325 mg PO DAILY 90 days fluticasone propionate 50 mcg/actuation 1 spray intranasal DAILY 30 days insulin glargine 20 units (0.2 mL) subcut QAM 90 days lactulose 15 mL PO DAILY lancets Use 1 lancet twice a day lancets (FreeStyle Lancets) As directed once per day lisinopril 40 mg PO DAILY loratadine 10 mg PO DAILY nystatin 1 appl topical DAILY 90 days omeprazole 20 mg PO DAILY ondansetron 4 mg PO Q8H PRN pen needle, diabetic Use 1 pen needle once a day pioglitazone 45 mg PO DAILY sennosides 17.2 mg (2 x 8.6 mg) PO BEDTIME PRN 90 days [Shower Bench As directed] [Shower bench As directed] Ventolin HFA 90 mcg/actuation (albuterol sulfate) 2 puffs inhalation Q6H PRN 30 days NS Tobacco use date assessed: 06/22/23 Fall risk assessment: No Falls in past year Last assessed Fall Risk: 11/28/24 Dental Screening Dental Screen Date: 11/28/24 Did you have a dental visit in the last 12 months?: Yes Did you have a dental problem in the last 6 months where you did not have access to dental care?: No Was dental information given to patient?: Patient has dentist HPI HPI Comments History of Present Illness Details The patient is a 69-year-old female presenting for a wellness visit and preventative care. She has a history of chronic kidney disease, stage 3, with a stable glomerular filtration rate (GFR) around 34 mL/min/1.73 m?, which has remained consistent over time. Her renal function has been monitored regularly, and no acute interventions have been necessary. The patient has hyperlipidemia, with recent laboratory results indicating elevated low-density lipoprotein (LDL) cholesterol at 114 mg/dL, above the target of 70 mg/dL. She is currently on atorvastatin 80 mg, but additional medication, ezetimibe, is being considered to better manage her cholesterol levels. She has a documented vitamin B12 deficiency, with levels at 187 pg/mL, necessi tating vitamin B12 injections. Additionally, her vitamin D levels are low, prompting supplementation. Her past medical history includes endometrial cancer, for which she underwent a hysterectomy. She has also had a cholecystectomy and section. [facility] Medical History Morbid obesity Breast cancer screening by mammogram Physical exam CKD (chronic kidney disease) stage 3, GFR 30-59 ml/min B12 deficiency Postmenopausal Renal calculi Diabetes mellitus Essential hypertension Uterine cancer Pure hypercholesterolemia Lesion of pancreas Diverticulosis Chronic constipation GERD (gastroesophageal reflux disease) Hyperlipidemia Thyroid nodule Chronic kidney disease Migraine headache Arthritis Anxiety disorder Asthma Type 2 diabetes mellitus Hypertension Surgical History History of hysterectomy for malignancy Hx of endoscopy History of hernia repair Hx of cholecystectomy History of section History of colonoscopy History of lithotripsy Family History (Updated 11/28/24 @ 15:43 by Caro Guevara MD) Father History of coronary artery disease History of diabetes mellitus, type II History of cancer Mother History of hypertension Social History Housing: Apartment Alcohol intake: never Patient Tobacco Use Status: Former Tobacco user Tobacco use type: Cigarette e-Cigarette/Vaping Use: Never Used Second Hand Smoke Exposure: No service: No Current occupational status: unemployed and disabled Cognitive needs: Yes Hearing needs: No Vision needs: Yes Questionnaire PHQ-9 Over the last 2 weeks, how often have you been bothered by any of the following problems? 1. Little interest or pleasure in doing things: not at all 2. Feeling down, depressed, or hopeless: not at all 3. Trouble falling or staying asleep, or sleeping too much: not at all 4. Feeling tired or having little energy: not at all 5. Poor appetite or overeating: not at all 6. Feeling bad about yourself - or that you are a failure or have let yourself or your family down: not at all 7. Trouble concentrating on things, such as reading the newspaper or watching television: not at all 8. Moving or speaking so slowly that other people could have noticed. Or the opposite - being so fidgety or restless that you have been moving around a lot more than usual: not at all 9. Thoughts that you would be better off or of hurting yourself in some way: not at all Total score: 0 Depression Screening Interpretation: Negative Depression Screening Done: Yes 69843 - PHQ-9 Billing: Yes Source: Developed by Drs. Goyo Ortiz, Katherin Martinez, Mj Tatum and colleagues, with an educational corinne from [employer]. Thrive Questionnaire Date Thrive assessed: 11/21/23 I am a: Patient What is your living situation today?: I have a steady place to live Within the past 12 months, did the food you bought not last and you didn't have the money to get more?: Never true Within the past 12 months, did you worry whether your food would run out before you got money to buy more?: Never true Do you have trouble paying for medicines?: No Do you have trouble getting transportation to medical appointments?: No Do you have trouble paying your heating and electricity bill?: No Do you have trouble taking care of your child, family member or friend?: No Do you have trouble with day-to-day activities such as bathing, preparing meals, shopping, managing finances, etc.?: No Are you currently unemployed and looking for a job?: Yes Are you interested in more education?: No Please select the resources that you would like help with: None Currently or been in a relationship where the following occur: No concerns reported THRIVE Score: 0 AUDIT C Alcohol Use Questionnaire (AUDIT-C) 1. How often do you have a drink containing alcohol?: Never Total Score: 0 Score Reviewed/Action Taken: No SHARONDA-7 AMB Questionnaire SHARONDA-7 Date SHARONDA - 7 assessed: 06/22/23 Feeling nervous, anxious, or on edge: 0 = Not at all Not being able to stop or control worryin = Not at all Worrying too much about different things: 0 = Not at all Trouble relaxin = Not at all Being so restless that it is hard to sit still: 0 = Not at all Becoming easily annoyed or irritable: 0 = Not at all Feeling afraid as if something awful might happen: 0 = Not at all Total SHARONDA-7 score (0-4 normal; 5-9 mild; 10-14 moderate; 15-21 severe): 0 Source: Developed by Drs. Goyo Ortiz, Katherin Martinez, Mj Tatum and colleagues, with an educational corinne from [employer]. SHARONDA-7 Assessment Billing SHARONDA-7 Assessment Tool: SHARONDA-7 Assessment 69716 Review of Systems Const All systems reviewed & are unremarkable except as noted in HPI and below Card Denies chest pain at rest, Denies chest pain with activity, Denies edema, Denies irregular heart rhythm, Denies claudication, Denies dyspnea, Denies dyspnea on exertion, Denies orthopnea, Denies paroxysmal nocturnal dyspnea and Denies slow heart rate Resp Denies cough, Denies dyspnea and Denies dyspnea on exertion Musc Denies atrophy, Denies deformity and Denies limited range of motion Skin/Breast Denies bleeding lesions, Denies changing lesions and Denies rash Physical exam (Primary Care) Vital Signs: Last Vital Signs Temp 97.3 F 11/28/24 15:11 Pulse 56 11/28/24 15:11 Resp 18 11/28/24 15:11 BP 122/70 11/28/24 15:11 Pulse Ox 97 11/28/24 15:11 Oxygen Delivery Method Room Air 11/28/24 15:11 BMI result Body Mass Index 35.6 BMI Assessment/Plan discussion: High BMI High, discussed plan: lifestyle, weight reduction, dietary and physical activity Tobacco/Smoking Status: Tobacco use Status Tobacco use date assessed 06/22/23 11/28/24 15:13 Patient Tobacco Use Status Former Tobacco user 11/28/24 15:13 Tobacco use type Cigarette 11/28/24 15:13 e-Cigarette/Vaping Use Never Used 11/28/24 15:13 PHQ-9: PHQ-9 Score PHQ-9: Total score 0 11/28/24 16:24 Depression Screening Interpretation: Negative Thrive Assessment: Date of Thrive Assessment Date Thrive assessed 11/21/23 11/28/24 15:13 Currently or been in a relationship where the following occur: No concerns reported HENAR Head: Yes normal to inspection, Yes normocephalic and Yes atraumatic Ears: external ears normal Eyes General: appearance normal, both eyes and all related structures Eyelids: Yes eyelids normal Conjunctivae: conjunctivae normal Neck Neck: Yes normal visual inspection and Yes supple Resp Effort & Inspection: normal respiratory effort Auscultation: clear to auscultation bilaterally Cardio Jugular venous distension: no JVD Rate: regular rate Rhythm: regular rhythm Heart sounds: S1 normal heart sound present and S2 normal heart sound present GI Inspection: Yes normal to inspection Palpation (GI): Soft to palpation and nontender Auscultation: normal bowel sounds Skin General skin exam: no rashes or lesions noted Neuro General: no focal motor deficits Extrem General: Yes full ROM Psych Appearance: grossly normal Results AMB Hemoglobin A1c AMB Hemoglobin A1c 8.2 % Last Edit by Zahida Myrick MA on 11/28/24 16:25 Immunizations pneumoc 20-marilee conj-dip cr(PF) 0.5 mL IM syringe Performing Provider: Caro Guevara MD [facility] Administered by: BERRY Freed on 11/28/24 15:58 Dose Route Admin Location Dispensed Lot Number Expiration Date [facility] 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 Setter 0.5 mL IM Left Deltoid 0.5 mL [id number] 11/07/25 0716-9302-69 [employer] /[employer] Total Dispensed Waste 0.5 mL 0 % VIS Given Date VIS Provided VIS Publication Date 11/28/24 Single Vaccine 24 Eligibility Eligibility Date Funding Source Not [facility] Eligible 11/28/24 Private Boostrix Tdap 2.5 Lf unit-8 mcg-5 Lf/0.5 mL intramuscular syringe Performing Provider: Caro Guevara MD [facility] Administered by: BERRY Freed on 11/28/24 15:58 Dose Route Admin Location Dispensed Lot Number Expiration Date [employer] Setter 0.5 mL IM Left Deltoid 0.5 mL [id number] 05/04/27 66356-179-81 [employer] Total Dispensed Waste 0.5 mL 0 % VIS Given Date VIS Provided VIS Publication Date 11/28/24 Single Vaccine 20 Eligibility Eligibility Date Funding Source Not [facility] Eligible 11/28/24 Private Results Reviewed Results Reviewed: Laboratory Last Values Hgb A1c (Clinic) 8.2 % (4.0-6.0) H 11/28/24 16:24 Coding Level of Care Code Est Pt Prev Care >65y(83993) Diagnoses Physical exam Z00.00 Malignant neoplasm of uterus, unspecified site C55 Malignant neoplasm of uterus location: unspecified site of uterus Stage 3b chronic kidney disease N18.32 Chronic kidney disease stage 3 subtype: stage 3b (GFR 30-44) Type 2 diabetes mellitus with hyperglycemia, with long-term current use of insulin E11.65; Z79.4 Diabetes mellitus type: type 2 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: with senior living use Diabetes mellitus complication status: with hyperglycemia Additional Codes SHARONDA-7 Assessment Billing - SHARONDA-7 Assessment Tool: SHARONDA-7 Assessment [id number] ([id number]) PHQ-9 - 34808 - PHQ-9 Billing: Yes ([id number]) Time Spent (min) 31 Assessment & Plan Assessment & Plan (1) Physical exam: Code(s): Z00.00 - Encounter for general adult medical examination without abnormal findings Category: Medical (2) Uterine cancer: Code(s): C55 - Malignant neoplasm of uterus, part unspecified Category: Medical Qualifiers: Malignant neoplasm of uterus location: unspecified site of uterus Qualified Code(s): C55 - Malignant neoplasm of uterus, part unspecified (3) CKD (chronic kidney disease) stage 3, GFR 30-59 ml/min: Code(s): N18.30 - Chronic kidney disease, stage 3 unspecified Category: Medical Qualifiers: Chronic kidney disease stage 3 subtype: stage 3b (GFR 30-44) Qualified Code(s): N18.32 - Chronic kidney disease, stage 3b (4) Diabetes mellitus: Code(s): E11.9 - Type 2 diabetes mellitus without complications Category: Medical Qualifiers: Diabetes mellitus type: type 2 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 A bone density scan is due in 2025, and colon cancer screening will be conducted using [employer]. 2. Chronic Kidney Disease, Stage 3 The patient's chronic kidney disease is stable with a GFR of 34 mL/min/1.73 m?, and no acute interventions are required at this time. 3. Diabetes mellitus type 2 A1c goal is equal or less than 7% Orders: Orders TDaP Immunization 11/28/24 Z23 - Encounter for immunization Pneumococcal 20 Immunization 11/28/24 Z23 - Encounter for immunization Vitamin B12 and Folate 4 Months E53.8 - Deficiency of other specified B group vitamins Vitamin D 25-OH Total 4 Months E55.9 - Vitamin D deficiency, unspecified Microalbumin, Random (w Creat) 4 Months R80.9 - Proteinuria, unspecified Lipid Panel 4 Months E78.5 - Hyperlipidemia, unspecified Complete Blood Count Auto Diff 4 Months D64.9 - Anemia, unspecified IRON PROFILE 4 Months D64.9 - Anemia, unspecified Comprehensive [place]. 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
--- OUTSIDE RECORDS SUMMARY | 2024-11-28 20:32 | XMS_ITS | Clinical Summary ---
Author Organization [facility] Address [address] [place] [address] Care Team Providers Care Sketch Liner Name Role Phone Unavailable Primary Care Provider Unavailabl e Allergies Active Allergy Reactions Criticality Noted Date Comments Naproxen 02/28/2020 Other reaction(s): GI Problems Other 11/09/2024 Aspirin-Pravastatin Pravastatin 02/28/2020 Other reaction(s): Hives / Skin Rash, Other (see comments) Medications Aspirin Low Dose 81 MG EC tablet 12/15/19 23 Active atorvastatin (Lipitor) 80 MG tablet Take 80 mg by mouth. 07/01/19 22 Active lisinopril 40 MG tablet Take 1 tablet by mouth. 07/20/19 19 Active omeprazole (PriLOSEC) [address] capsule 12/15/19 23 Active pioglitazone (Actos) 45 MG tablet Take 45 mg by mouth. 02/14/19 20 Active GNP Alcohol Swabs 70 % pads APPLY ONE PAD TOPICALLY TWICE DAILY 10/26/19 25 Active Blood Glucose Monitoring Suppl (FreeStyle Lite) w/Device kit USE DIRECTED TO CHECK BLOOD SUGAR LEVELS 07/28/19 25 Active Jardiance 10 MG Take 10 mg by mouth in the morning. Active FeroSul 325 (65 Fe) MG tablet Take 1 tablet by mouth Once per day. Active FREESTYLE LITE test strip USE DIRECTED TO CHECK BLOOD SUGAR LEVELS EVERY DAY Active GNP Pen Levan 32G X 6 MM misc USE ONE pen needle DAILY 10/26/19 25 Active Easy Comfort Lancets misc USE ONE LANCET TWICE DAILY 10/26/19 25 Active Lantus SoloStar 100 UNIT/ML pen INJECT 20 units SUBCUTANEOUSLY IN THE MORNING Active cyanocobalamin (Vitamin B-12) 1000 MCG tablet Take 1 tablet by mouth. 09/10/28 19 Disconti nued(The rapy complete d) ezetimibe (Zetia) 10 MG tablet Take 10 mg by mouth. 07/01/19 Disconti nued(The rapy complete d) insulin glargine (Lantus) 100 UNIT/ML injection Disconti nued(The rapy complete d) lactulose (Kristalose) 10 g packet as needed Disconti nued(The rapy complete d) loratadine (Claritin) 10 MG tablet Take 1 tablet by mouth. Disconti nued(The rapy complete d) ondansetron ODT (Zofran-ODT) 4 MG disintegrating tablet TAKE ONE TABLET BY MOUTH EVERY 8 HOURS NEEDED FOR NAUSEA AND VOMITING 07/01/19 Disconti nued(The rapy complete d) traMADol (Ultram) 50 MG tablet Take 1 tablet by mouth. 05/04/19 Disconti nued(The rapy complete d) acetaminophen (Tylenol) 500 MG tablet Take 1 tablet (500 mg) by mouth every 6 (six) hours if needed for mild pain for up to 20 doses. 20 tablet 07/18/19 Disconti nued(The rapy complete d) Active Problems Problem Noted Date Diagnosed Date Open fracture of tooth 09/05/2023 Pyogenic granuloma 07/18/2023 Severe dental caries 06/27/2023 Retained dental root 12/15/2022 Non-restorable tooth 12/15/2022 Encounters Date Type Department Care Team Description 11/02/2024 10:30 AM EDT Office Visit [facility] [address] [place] [id number] Alli, Jasmyne, OD Diabetes mellitus without ophthalmic manifestations (CMS/HCC) (Primary Dx); Combined forms of age-related cataract of both eyes; Meibomian gland disease of both eyes, unspecified eyelid; Presbyopia 11/02/2024 Travel from Last 3 Months Social History Tobacco Use Types Packs/Day Years Used Date Smoking Tobacco: Never Smokeless Tobacco: Never Tobacco Cessation:Counseling Given: Not Answered Alcohol Use Standard Drinks/Week Comments Never 0 (1 standard drink = 0.6 oz pur e alcohol) Comments Unknown Sex and Gender Information Value Date Recorded Sex Assigned at Female 12/07/2021 10:18 AM EDT Legal Sex Female 10:18 AM EDT Gender Identity Female 12/07/2021 10:18 AM EDT Sexual Orientation Don't know 12/07/2021 10 :18 AM EDT Last Filed Vital Signs Vital Sign Reading Time Taken Comments Blood Pressure 140/82 09/05/2023 7:54 AM EDT Pulse 76 09/05/2023 7:54 AM EDT Temperature - - Respiratory Rate - - Oxygen Saturation - - Inhaled Oxygen Concentration - - Weight - - Height - - Body Mass Index - - Plan of Treatment Health Maintenance Due Date Last Done Comments CT Colonography 1953 Colonoscopy 1953 Colorectal Cancer Screening 1953 Depression Screening 1953 Diabetes: Hemoglobin A1C 1953 FIT DNA/Cologuard 1953 FIT 1953 FOBT 1953 Lipid Panel 1953 SDOH Screening 1953 Sigmoidoscopy 1953 Diabetes: Foot Exam 1963 Alcohol/Substance Use Screening 1965 Hepatitis C Screening 1971 Zoster Vaccines (1 of 2) 2003 DTaP/Tdap/Td Vaccines (1 - Tdap) 07/03/2005 07/02/2005 Pneumococcal Vaccine: 50+ Years (2 of 2 - PCV) 01/07/2011 01/07/2010, 10/07/2005 RSV Patients and Patients Aged 60 years or older (1 - Risk 60-74 years 1-dose series) 2013 Mammogram 03/16/2020 03/16/2018 Dental Oral Exam 06/15/2023 12/14/2022, 12/04/2012 Dental Prophylaxis 06/15/2023 12/14/2022, 0 10/14/2011, 01/18/2011, Additional history exists Diabetes: Urine Protein Screening 12/08/2023 12/07/2022 Dental X-Ray: Bitewings 12/16/2023 12/15/19 23, 11/22/2012, 01/18/2011 COVID-19 Vaccine ( season) 2024 04/10/2021, 06/25/2020, 05/28/2020 Influenza Vaccine (#1) 2024 8, 11/17/2011, 10/15/2010 Tobacco Screening 11/09/2025 11/09/2024 Dental X-Ray: Full Mouth 12/15/2025 12/14/2022, 01/07 Eye Exam 11/02/2026 11/02/2024, 10/09, 11/02/2024, Additional history exists Hepatitis B Vaccines Completed 11/17/2011, 09/07/2007, 07/17/2007 HIB Vaccines Aged Out No longer eligi ble based on patient's age to complete this topic HPV Vaccines Aged Out No longer eligi ble based on patient's age to complete this topic Hepatitis A Vaccines Aged Out No long er eligible based on patient's age to complete this topic IPV Vaccines Aged Out No longer eligi ble based on patient's age to complete this topic Meningococcal B Vaccine Aged Out No l onger eligible based on patient's age to complete this topic Meningococcal Vaccine Aged Out No nicole adán eligible based on patient's age to complete this topic RSV under 20 months Aged Out No longe r eligible based on patient's age to complete this topic Rotavirus Vaccines Aged Out No longer eligible based on patient's age to complete this topic Procedures Procedure Name Priority Date/Time Associated Diagnosis Comments PROPHYLAXIS - ADULT Routine 12/14/2022 8 :00 AM EST Dental caries INTRAORAL - COMPLETE SERIES OF RADIOGRAPHIC IMAGES Routine 12/14/2022 8:00 AM EST Dental caries COMPREHENSIVE ORAL EVALUATION - NEW OR ESTABLISHED PATIENT Routine 12/14/2022 8:00 AM EST Dental caries BI MAMMOGRAM SCREENING BILATERAL Routine 03/16/2018 3:05 PM EST from Last 3 Months or Most Recently Relevant to Health Maintenance Results * DIGITAL BILATERAL SCREEN 1 (03/16/2018 3:05 PM EST) Anatomical Region Laterality Modality Breast Bilateral Mammography 03/16/2018 3:05 PM EST Narrative 03/16/2018 3:07 PM EST Refer to the Notes tab for result details [facility] Procedure: DIGITAL BILATERAL SCREEN 1 Procedure Note Provider, MD Derrick - 05/01/2022 Refer to the Notes tab for result details [facility] Procedure: DIGITAL BILATERAL SCREEN 1 Caro Rojas MD IMG BI PROCEDURES Final Result from Last 3 Months or Most Recently Relevant to Health Maintenance Insurance [facility] [employer] (HMO D-SNP) [facility] [place] [id number]
--- OUTSIDE RECORDS SUMMARY | 2024-11-28 20:32 | XMS_ITS | Clinical Summary ---
Author Organization [facility] Address [address] [place] [address] Care Team Providers Care Signal Tower Director Name Role Phone Caro Wayne MD Primary Care Provid er Allergies Active Allergy Reactions Criticality Noted Date Comments Naproxen 02/28/2020 Pravastatin 02/28/2020 Medications Medication Sig Dispensed Refills Start Date End Date Status clotrimazole-betameth asone (LOTRISONE) cream Apply topically 2 (two) times a day. 0 Active estradiol (CLIMARA) 0.1 MG/24HR Place 1 patch onto the skin once a week. 0 Active insulin glargine (LANTUS) injection 100 units/mL Inject under the skin every night at bedtime. 0 Active pioglitazone (ACTOS) 45 MG tablet Take 45 mg by mouth daily. 0 Active omeprazole (PriLOSEC) 20 MG capsule Take 20 mg by mouth daily. 0 Active lactulose (CHRONULAC) 10 GM/15ML solution Take by mouth. 0 A ctive aspirin EC 81 MG tablet Take 81 mg by mouth daily. 0 Active atorvastatin (LIPITOR) tablet 80 mg Take 80 mg by mouth daily. 0 Active albuterol (PROVENTIL) 2.5 MG/0.5ML NEBU nebulizer solution Take 2.5 mg by nebulization. 0 Active Albuterol Sulfate 108 (90 Base) MCG/ACT AEPB Inhale into the lungs. 0 Active lisinopril (PRINIVIL,ZESTRIL) tablet 40 mg Take 40 mg by mouth daily. 0 Active fluticasone (FLONASE) 50 MCG/ACT nasal spray spray/apply 1 spray in each nostril daily. 0 Active traMADol (ULTRAM) 50 MG tablet Take 50 mg by mouth every 6 (six) hours as needed for pain. 0 Active chlorhexidine (HIBICLENS) 4 % external liquid Apply topically daily as needed. 0 Active estradiol (ESTRACE) 0.1 MG/GM vaginal cream Place 2 g vaginally daily. 0 Active loratadine (CLARITIN) 10 MG tablet Take 10 mg by mouth daily. 0 Active Active Problems Problem Noted Date Diagnosed Date Uterine cancer 03/03/2020 Social History Tobacco Use Types Packs/Day Years Used Date Smoking Tobacco: Former Smokeless Tobacco: Never Alcohol Use Standard Drinks/Week Comments No 0 (1 standard drink = 0.6 oz pur e alcohol) Sex and Gender Information Value Date Recorded Sex Assigned at Not on file Gender Identity Not on file Sexual Orientation Not on file Last Filed Vital Signs Vital Sign Reading Time Taken Comments Blood Pressure 121/67 04/17/2020 9:49 AM EST Pulse 61 04/17/2020 9:49 AM EST Temperature 36.3 C (97.4 F) 04/17/2020 9:49 AM EST Respiratory Rate - - Oxygen Saturation - - Inhaled Oxygen Concentration - - Weight 96.2 kg (212 lb) 04/17/2020 9:49 AM EST Height 165.1 cm (5' 5 ) 04/17/2020 9:49 AM EST Body Mass Index 35.28 04/17/2020 9:49 AM EST Plan of Treatment Health Maintenance Due Date Last Done Comments Hepatitis C Screening 1955 COVID-19 Vaccine (#1) 1958 Pneumococcal Vaccine (1 of 2 - PCV) 1959 Depression Screening 1965 Preventative Health Evaluation 1971 DTap / Tdap / Td (1 - Tdap) 01/05/1972 Shingrix-Zoster Vaccine (1 of 2) 01/05/1972 Colon Cancer Screening (Colonoscopy) 1998 Breast Cancer Screening (Mammogram) 2003 Fall Risk Assessment 2018 Osteoporosis Screening (DEXA Scan) 2018 Influenza Vaccine (#1) 2024 RSV Adult > 60+ Yrs or Pregn ant (1 - 1-dose 75+ series) 01/05/2028 Hepatitis B Vaccines Aged Out No long er eligible based on patient's age to complete this topic RSV Ped < 20 months Aged Out No longe r eligible based on patient's age to complete this topic Care Teams Signal Tower Director Relationship Specialty Start Date End Date Caro Wayne MD [address] [facility] , [address] [facility] Physician Associ D/B/A: [facility] [place] [id number] PCP - General Internal Medicine 02/29/20
--- OUTSIDE RECORDS SUMMARY | 2024-11-28 20:32 | XMS_ITS | Clinical Summary ---
Author Organization [facility] Address [address] [place] [address] Phone Care Team Providers Care Patient Ombudsperson Name Role Phone Caro Guevara MD Primary Care Provider [phone] Allergies Active Allergy Reactions Criticality Noted Date Comments Aspirin, Buffered-Pravastatin 11/01/2024 Naproxen 01/10/2020 Other reaction(s): GI Problems Pravastatin Other 02/28/2020 Other reaction(s): Hives / Skin Rash, Other (see comments) Pravastatin Sodium 01/10/2020 Medications alcohol swabs pads, medicated by Does not apply route. Active blood pressure monitor kit by Does not apply route. Active blood sugar diagnostic (BLOOD GLUCOSE TEST [facility] by In Vitro route. Active syringe, disposable, syringe Active albuterol HFA (PROAIR HFA ; PROVENTIL HFA ; VENTOLIN HFA) 90 mcg/actuation inhaler Inhale 2 Puffs into the lungs every 4 hours as needed. Active albuterol 2.5 mg/0.5 mL solution for nebulization nebulizer solution Inhale into the lungs. Active aspirin 81 mg chewable tablet Take 81 mg by mouth daily. Active atorvastatin (LIPITOR) 80 mg tablet Take 80 mg by mouth daily. Active chlorhexidine (Hibiclens) 4 % external liquid Preop surgical skin wash. Please follow provided instructions from doctor. 0 Active clotrimazole-bet amethasone (LOTRISONE) 1-0.05 % cream Apply topically 2 times daily. Active estradioL (ESTRACE) 0.01 % (0.1 mg/gram) vaginal cream Place 1 g vaginally at bedtime. Active fluticasone propionate (FLONASE) 50 mcg/actuation nasal spray 2 Sprays by Each Nare route daily. Active insulin glargine (Lantus Solostar U-100 Insulin) 100 unit/mL (3 mL) injection pen Inject into the skin. Active lactulose (CHRONULAC) solution Take 15 mL by mouth daily (with breakfast). Active lisinopril (PRINIVIL,ZESTRI L) 40 mg tablet Take 40 mg by mouth daily. Active loratadine 10 mg capsule Take by mouth. Activ e omeprazole OTC (PriLOSEC OTC) 20 mg EC tablet Take 20 mg by mouth daily. Active pioglitazone (ACTOS) 45 mg tablet Take 45 mg by mouth daily. Active traMADoL (ULTRAM) 50 mg tablet Take 50 mg by mouth every 6 hours as needed. Active Active Problems Problem Noted Date Diagnosed Date History of uterine cancer 12/27/2023 Axillary adenopathy 01/20/2021 CKD (chronic kidney disease) stage 3, GFR 30-59 ml[place]min [place] [facility] [place] 01/21/2020 Diverticulitis 01/21/2020 Overview (12/02/2023): Many years ago, did not require surgery GERD (gastroesophageal reflux disease) 0 DM (diabetes mellitus), type 2 with renal complications [place] [place] [facility] [place] [facility] [place] 01/10/2020 Hypercholesterolemia 01/10/2020 Hypertension 01/10/2020 Migraines 01/10/2020 Severe obesity (BMI 35.0-39. 9) with comorbidity [place] [place] [facility] [place] [place] 01/10/2020 Endometrial cancer, FIGO sta ge IIIC2 [place] [place] [facility] [place]) 08/02/2019 Overview (12/02/2023): 1. Neoadjuvant chemotherapy with carboplatin AUC 6, paclitaxel 175 mg/m2 every 21 days x 3 cycles from 11/07/2019 to 12/19/2019. 2. Robot assisted total laparoscopic hysterectomy, bilateral salpingo- oophorectomy, bilateral pelvic and periaortic lymph node dissection. cystoscopy on 01/28/20. A. Uterine carcinosarcoma, FIGO 3C2, ypT1a pN1(sn), grade 3 B. 25% myometrial invasion C. Lymphovascular invasion Negative D. Pelvic washings Negative E. [place] lymph nodes positive 1/6 left pelvic, 0/8 right pelvic, 0/4 periaortic F. IHC for MMR proteins preserved. Encounters Date Type Department Care Team Description 11/01/2024 9:20 AM EDT Office Visit [address] [address] Celina Zelaya MD History of uterine cancer (Primary Dx) from Last 3 Months Surgical History Surgery Date Site/Laterality Comments CHOLECYSTECTOMY PROCEDURE: HISTORICAL CHOLECYSTECTOMY; COMMENT: Laparotomy SECTION PROCEDURE: HISTORICAL DELIVERY HERNIA REPAIR PROCEDURE: HISTORICAL HERNIA REPAIR/UMB OTHER SURGICAL HISTORY 09/13/2019 PROCEDURE: MS ENDOMETRIAL BX CONJUNCT W/COLPOSCOPY OTHER SURGICAL HISTORY 10/05/2019 PROCEDURE: MS EGD INTRMURAL NEEDLE ASPIR/BIOP ALTERED ANATOMY; COMMENT: Pancreatic Body Cyst, Needle Aspiration OTHER SURGICAL HISTORY 04/12/2010 PROCEDURE: MS EGD INTRMURAL NEEDLE ASPIR/BIOP ALTERED ANATOMY COLONOSCOPY PROCEDURE: HISTORICAL COLONOSCOPY Medical History Medical History Date Comments Hypertension 01/10/2020 DX:Hypertension Hypercholesterolemia 01/10/2020 DX:Hypercho lesterolemia Migraines 01/10/2020 DX:Migraines Endometrial cancer, FIGO sta ge IIIC2 ([facility]24, [facility] V28) 08/02/2019 DX:Endometrial cancer, FIGO stage IIIC2 ([facility]); COMMENT: 1. Neoadjuvant chemotherapy with carboplatin AUC 6, paclitaxel 175 mg/m2 every 21 days x 3 cycles from 11/07/2019 to 12/19/2019. CKD (chronic kidney disease) stage 3, GFR 30-59 ml/min ([facility] V24, [facility] V28) 01/21/2020 DX:CKD (chroni c kidney disease) stage 3, GFR 30-59 ml/min ([facility]) GERD (gastroesophageal reflux disease) 0 DX:GERD (gastroesophageal reflux disease) DM (diabetes mellitus), type 2 with renal complications ([facility] V24, [facility] V28) 01/10/2020 DX:DM (diabet es mellitus), type 2 with renal complications (HCC) terminologist (current) use of i nsulin ([facility] V24, [facility] V28) 01/21/2020 DX:terminologist (current) use of insulin (HCC) Diverticulitis 01/21/2020 DX:Diverticuliti s; COMMENT: Many years ago, did not require surgery Severe obesity (BMI 35.0-39. 9) with comorbidity (CMS/HCC V24, CMS/HCC V28) 01/10/2020 DX:Severe obesi ty (BMI 35.0- 39.9) with comorbidity (HCC) Family History Medical History Relation Name Comments Prostate cancer Father Other cancer Paternal Grandmother Breast cancer Sister 1 Uterine cancer Sister 2 Relation Name Status Comments Father Paternal Grandmother Sister 1 Sister 2 Social History Tobacco Use Types Packs/Day Years Used Date Smoking Tobacco: Former Cigarettes Q uit: 02/07/2002 Smokeless Tobacco: Former Alcohol Use Standard Drinks/Week Comments No 0 (1 standard drink = 0.6 oz pur e alcohol) Comments Unknown Sex and Gender Information Value Date Recorded Sex Assigned at Not on file Legal Sex Female 8:34 PM EST Gender Identity Not on file Sexual Orientation Not on file Obstetrics History Last Filed Vital Signs Vital Sign Reading Time Taken Comments Blood Pressure 139/84 11/01/2024 9:09 AM EDT Pulse 58 11/01/2024 9:09 AM EDT Temperature 35.7 C (96.3 F) 11/01/2024 9:09 AM EDT Respiratory Rate - - Oxygen Saturation - - Inhaled Oxygen Concentration - - Weight 111 kg (245 lb) 11/01/2024 9:09 AM EDT Height 165.1 cm (5' 5 ) 05/22/2021 9:49 AM EDT Body Mass Index 40.77 05/22/2021 9:49 AM EDT Plan of Treatment Upcoming Encounters Date Type Department Care Team (Late st Contact Info) Description 05/02/2025 9:00 AM EDT Office Visit [facility] [address] [place] [id number] Celina Zelaya MD [address] [place] [address] Health Maintenance Due Date Last Done Comments Colorectal Cancer Screening: Colonoscopy 1953 Diabetes: Annual Foot Exam 1963 Diabetes: Annual Retina Eye Exam 1963 Zoster Vaccines (1 of 2) 01/05/1972 RSV Immunization Adult Patients (1 - Risk 50-74 years 1-dose series) 2003 Pneumococcal Vaccine: 50+ Years (2 of 2 - PCV) 01/07/2011 01/07/2010, 10/07/2005 DTaP,Tdap,and Td Vaccines (2 - Td or Tdap) 07/03/2015 07/02/2005 Breast Cancer Screening 03/16/2020 03/16/2018 Diabetes: Annual GFR (Glomerular Filtration Rate) 11/24/2021 11/24/2020 Cholesterol Screening (Lipid Panel) 01/09/2022 Falls Risk Assessment 01/09/2022 Hepatitis C Screening 01/09/2022 Medicare Annual Wellness Visit 01/09/2022 Osteoporosis Screening (Bone Density Screening) 01/09/2022 Social Influencers of Health Screening 01/09/2022 Diabetes: Annual Urine Albumin-Creatinine Ratio (uACR) 01/21/2022 Diabetes: Blood Sugar Contro l Test (HGBA1C) 01/21/2022 Hypertension/CHF/CAD Annual BMP Blood Test 01/21/2022 11/24/2020 Depression Screening 02/08/2024 COVID-19 Vaccine (4 - 2024-2 6 season) 2024 04/10/2021, 06/25/2020, 05/28/2020 Influenza Vaccine (#1) 2024 8, 11/17/2011, 10/15/2010 Hepatitis B Vaccines Completed 11/17/2011, 09/07/2007, 07/17/2007 [...] on patient's age to complete this topic MMR Vaccines Aged Out No longer eligi ble based on patient's age to complete this topic Meningococcal ACWY Vaccine Aged Out N o longer eligible based on patient's age to complete this topic Meningococcal B Vaccine Aged Out No l onger eligible based on patient's age to complete this topic RSV Immunization Patients Under 20 months Aged Out No longer eligible b ased on patient's age to complete this topic Varicella Vaccines Aged Out No longer eligible based on patient's age to complete this topic Procedures Procedure Name Priority Date/Time Associated Diagnosis Comments ANNUAL BMP BLOOD TEST Routine 11/24/2020 from Last 3 Months or Most Recently Relevant to Health Maintenance Results * Annual BMP Blood Test (11/24/2020) Annual BMP Blood Test Abstracted Historical Provider MD HEALTH MAINTENANCE Final Result from Last 3 Months or Most Recently Relevant to Health Maintenance Insurance [employer] Member Subscriber Plan / Payer (Ef fective 2022-Present) Name:Vero [place] Relation to Subscriber:Self Name:Vero Merlos Payer ID:[id number] Group ID:[id number] Type:Not on file Address: [place] [address] [place] [id number] Care Teams Patient Ombudsperson Relationship Specialty Start Date End Date Caro Guevara MD [address] [place] [address] , [address] [facility] Physician Associ D/B/A: [facility] [place] PCP - General Internal Medicine 01/01/20
--- OUTSIDE RECORDS SUMMARY | 2024-11-28 20:32 | XMS_ITS | Encounter Summary ---
Author Organization [facility] Address [address] [place] [address] [address] [place] [address] Care Team Providers Care Medical Auditor Name Role Phone Unavailable Primary Care Provider Unavailabl e Reason for Visit * Reason Onset Date Comments cx due to illness 12/14/2023 Encounter Details Date Type Department Care Team ([facility] st Contact Info) Description 12/14/2023 Telephone [facility] [address] [place], [place] [phone] Sergo Mark DDS [address] [place], [place] [phone] cx due to illness Social History Tobacco Use Types Packs/Day Years Used Date Smoking Tobacco: Never Smokeless Tobacco: Never Alcohol Use Standard Drinks/Week Comments Never 0 (1 standard drink = 0.6 oz pur e alcohol) Comments Unknown Sex and Gender Information Value Date Recorded Sex Assigned at Female 12/07/2021 10:18 AM EDT Legal Sex Female 10:18 AM EDT Gender Identity Female 12/07/2021 10:18 AM EDT Sexual Orientation Don't know 12/07/2021 10 :18 AM EDT documented as of this encounter Miscellaneous Notes * Telephone Encounter - Soraya Delgado - 12/14/2023 10:50 AM EST Patient called in to report she had to cancel appt today due to waking up with vomiting. She would like a new appt scheduled DR documented in this encounter Plan of Treatment Not on file documented as of this encounter Visit Diagnoses Not on filedocumented in this encounter
== END 2024-11-28 16:00 | disposition home or self-care (01) ==
LOC: HO.HMCH 14:20
PROVIDERS: PCP Internal Medicine; Visit Provider Internal Medicine
DX: Z23 Encounter for immunization (principal); Z13.9 Encounter for screening, unspecified

== ENCOUNTER → 2024-11-28 14:19 | Outpatient (BNVA) | payer OTHER, SELFPAY | PROVIDERS: PCP Internal Medicine; Visit Provider Internal Medicine | DX: Z00.00 Encounter for general adult medical examination without abnormal findings (principal); E11.22 Type 2 diabetes mellitus with diabetic chronic kidney disease; E11.65 Type 2 diabetes mellitus with hyperglycemia; N18.32 Chronic kidney disease, stage 3b; E78.5 Hyperlipidemia, unspecified; E53.8 Deficiency of other specified B group vitamins; C55 Malignant neoplasm of uterus, part unspecified; Z79.4 Long term (current) use of insulin; Z23 Encounter for immunization | CPT/HCPCS: 83036; 90471; 90472; 90677; 90715; 96127; 99397 ==

== ENCOUNTER 2024-12-11 08:39 | Outpatient (AMB) | payer OTHER, SELFPAY ==
--- NOTE | 2024-12-11 08:53 | AM.OFFVISNUR ---
Intake Visit Reasons: B-12 Allergies naproxen Allergy (Intermediate, Verified 11/28/24 15:33) stomach upset pravastatin (PRAVASTATIN) Allergy (Intermediate, Verified 11/28/24 15:33) RASH Office Meds cyanocobalamin (vitamin B-12) 1,000 mcg/mL injection solution Performing Provider: Caro Guevara MD [facility] Administered by: Franci Gentile LPN on 12/11/24 08:54 Dose Route Admin Location Dispensed Lot Number Expiration Date [facility] Hand Profiler 1,000 mcg IM left deltoid 1 mL [id number] 02/06/27 89531-568-88 [employer] Total Dispensed Waste 1 mL 0 % Assessment & Plan Assessment & Plan Orders: Orders AMB Vitamin B12 Injection Patient Supplied Today E53.8 - Deficiency of other specified B group vitamins Coding
--- OUTSIDE RECORDS SUMMARY | 2024-12-11 09:03 | XMS_ITS | Encounter Summary ---
Author Organization [employer] [facility] Address [address] [facility] [address] [place] [address] Care Team Providers Care Trimmer Sawyer Name Role Phone Unavailable Primary Care Provider Unavailabl e Reason for Visit * Reason Onset Date Comments cx due to illness 12/14/2023 Encounter Details Date Type Department Care Team ([facility] st Contact Info) Description 12/14/2023 Telephone [facility] ADULT [facility] [address] [place], [place] [phone] Sergo Mark DDS [address] [place], [place] [phone] cx due to illness Social History Tobacco [...]
--- OUTSIDE RECORDS SUMMARY | 2024-12-11 09:04 | XMS_ITS | Clinical Summary ---
Author Organization [facility] Address [address] [place] [address] Phone Care Team Providers Care Sales And Marketing Specialist Name Role Phone Caro Wayne MD Primary Care Provider [phone] Allergies Active Allergy Reactions Criticality Noted Date Comments Naproxen 02/28/2020 Other reaction(s): GI Problems Pravastatin Other (see comments) 07/10/2021 Medications traMADol (ULTRAM) 50 MG tablet Take 1 tablet by mouth 1 (one) time each day Active omeprazole (PriLOSEC) [address] capsule Take 20 mg by mouth 1 (one) time each day Active loratadine (CLARITIN) 10 MG tablet Take 1 tablet by mouth 1 (one) time each day Active lisinopril 40 MG tablet Take 1 tablet by mouth 1 (one) time each day Active lactulose (CEPHULAC) 10 g packet as needed Active insulin glargine (Lantus) 100 UNIT/ML injection Active fluticasone (FLONASE) 50 MCG/ACT nasal spray Administer 1 spray into each nostril Active ergocalciferol 1.25 MG (92566 UT) capsule Take 1 capsule by mouth 1 (one) time per week Active cyanocobalamin (VITAMIN B-12) 1000 MCG tablet Take 1 tablet by mouth 1 (one) time each day Active albuterol (5 MG/ML) 0.5% nebulizer solution Active atorvastatin (LIPITOR) 80 MG tablet Take 80 mg by mouth 1 (one) time each day 2 Active senna (SENOKOT) 8.6 MG tablet TAKE TWO TABLETS BY MOUTH AT BEDTIME NEEDED FOR CONSTIPATION 2 Active pioglitazone (ACTOS) 45 MG tablet Take 45 mg by mouth 1 (one) time each day 2 Active ondansetron ODT (ZOFRAN-ODT) 4 MG dispersible tablet TAKE ONE TABLET BY MOUTH EVERY 8 HOURS NEEDED FOR NAUSEA AND VOMITING 2 Active ezetimibe (ZETIA) 10 MG tablet Take 10 mg by mouth 1 (one) time each day 2 Active FeroSul 325 (65 Fe) MG tablet Take 1 tablet by mouth 1 (one) time each day 2 Active aspirin (ST JACQUELYN) 81 MG EC tablet 3 Active Jardiance 10 MG tablet TAKE ONE TABLET BY MOUTH EVERY MORNING 90 tablet 1 5 Active Active Problems Problem Noted Date Diagnosed Date H/O: malignant neoplasm 12/27/2023 Pyogenic granuloma 07/18/2023 Stage 3b chronic kidney disease 07/01/2023 Severe obesity 12/07/2022 12/07/2022 Migraine without aura 12/07/2022 12/07/2022 Malignant neoplasm of endometrium of corpus uter i 12/07/2022 12/07/2022 History of repair of umbilical hernia 12/07/2022 12/07/2022 Cholecystectomy 12/07/2022 12/07/2022 Stage 3a chronic kidney disease 12/07/2022 Renal osteodystrophy 12/07/2022 Stage 3a chronic kidney disease 07/13/2021 Type 2 diabetes mellitus wit h diabetic chronic kidney disease 07/13/2021 Renal disorder due to type 2 diabetes mellitus 0 07/10/2021 Microalbuminuria 07/10/2021 Essential hypertension 07/10/2021 Diabetes mellitus 07/10/2021 Chronic kidney disease stage 3 07/10/2021 Malignant neoplasm of uterus 03/03/2020 Encounters Date Type Department Care Team Description 10/06/2024 Refill [facility] [address] [place], [place] [address] Bobby Kaur MD from Last 3 Months Family History Medical History Relation Comments Hypertension Father Kidney disease Father Kidney disease Sibling Relation Status Comments Father Mother Alive Sibling Social History Tobacco Use Types Packs/Day Years Used Date Smoking Tobacco: Never Alcohol Use Standard Drinks/Week Comments No 0 (1 standard drink = 0.6 oz pur e alcohol) Comments Unknown Sex and Gender Information Value Date Recorded Sex Assigned at Not on file Legal Sex Female 4:46 PM EST Gender Identity Not on file Sexual Orientation Not on file Last Filed Vital Signs Vital Sign Reading Time Taken Comments Blood Pressure 119/60 07/01/2023 11:05 AM EDT Pulse 74 07/01/2023 11:05 AM EDT Temperature - - Respiratory Rate - - Oxygen Saturation 97% 07/01/2023 11:05 AM EDT Inhaled Oxygen Concentration - - Weight 101 kg (223 lb 3.2 oz) 07/01/2023 11:05 A M EDT Height - - Body Mass Index - - Plan of Treatment Upcoming Encounters Date Type Department Care Team (Late st Contact Info) Description 01/28/2025 2:30 PM EST Office Visit [facility] [address] [place] [address] Bobby Kaur MD [address] [facility] [address] [place] [address] Health Maintenance Due Date Last Done Comments Breast Cancer Screening 1955 Pneumococcal Vaccine: 50+ Years (1 of 2 - PCV) 01/05/1972 Colorectal Cancer Screening: Annual FOBT 2002 Colorectal Cancer Screening: Colonoscopy 2002 Colorectal Cancer Screening: Sigmoidoscopy 2002 Diabetes: Ophthalmology Exam 03/09/2020 Diabetes: Pedal Pulse Checked 03/09/2020 Diabetes: Sensory Foot Exam 03/09/2020 Diabetes: Visual Foot Exam 03/09/2020 Diabetes: Hemoglobin A1C 09/22/2023 024, 11/09/2022, 11/04/2021 Influenza Vaccine (#1) 2024 Hepatitis B Vaccine Aged Out No longe r eligible based on patient's age to complete this topic Procedures Procedure Name Priority Date/Time Associated Diagnosis Comments ALT EXT LABS Routine 06/22/2023 from Last 3 Months or Most Recently Relevant to Health Maintenance Results * (ABNORMAL) ALT EXT LABS (06/22/2023) Hemoglobin A1C 7.1(A) 4.0 - 6.0 06/22/2023 us Historical Provider LAB BLOOD ORDERABLES Dorene l Result from Last 3 Months or Most Recently Relevant to Health Maintenance Insurance [facility] ([id number]) [facility] ([id number]) Care Teams Sales And Marketing Specialist Relationship Specialty Start Date End Date Caro Wayne MD [address] [place], [place] PCP - General Internal Medicine 06/17/21
--- OUTSIDE RECORDS SUMMARY | 2024-12-11 09:04 | XMS_ITS | Clinical Summary ---
Author Organization [facility] Address [address] [place] [address] Phone Care Team Providers Care Bill Sorter Name Role Phone Caro Guevara MD Primary Care Provider [phone] Allergies Active Allergy Reactions Criticality Noted Date Comments Aspirin, Buffered-Pravastatin 11/01/2024 Naproxen 01/10/2020 Other reaction(s): GI Problems Pravastatin Other 02/28/2020 Other reaction(s): Hives / Skin Rash, Other (see comments) Pravastatin Sodium 01/10/2020 Medications alcohol swabs pads, medicated by Does not apply route. Active blood pressure monitor kit by Does not apply route. Active blood sugar diagnostic (BLOOD GLUCOSE TEST [facility] by In Vitro route. Active syringe, disposable, [...] kidney disease) stage 3, GFR 30-59 ml/min ([facility] V24, [facility] V28) 01/21/2020 Diverticulitis 01/21/2020 Overview (12/02/2023): Many years ago, did not require surgery GERD (gastroesophageal reflux disease) 0 DM (diabetes mellitus), type 2 with renal complications ([facility] V24, [facility] V28) 01/10/2020 Hypercholesterolemia 01/10/2020 Hypertension 01/10/2020 Migraines 01/10/2020 Severe obesity (BMI 35.0-39. 9) with comorbidity ([facility] V24, [facility] V28) 01/10/2020 Endometrial cancer, FIGO sta ge IIIC2 ([facility] V24, [facility] V28) 08/02/2019 Overview (12/02/2023): 1. Neoadjuvant chemotherapy [...] invasion Negative D. Pelvic washings Negative E. [place] lymph nodes positive 1/6 left pelvic, 0/8 right pelvic, 0/4 periaortic F. IHC for MMR proteins preserved. Encounters Date Type Department Care Team Description 11/01/2024 9:20 AM EDT Office Visit [address] [address] Celina Zelaya MD History of uterine cancer (Primary Dx) from Last 3 Months Surgical History Surgery Date Site/Laterality Comments CHOLECYSTECTOMY PROCEDURE: HISTORICAL CHOLECYSTECTOMY; COMMENT: Laparotomy SECTION PROCEDURE: HISTORICAL DELIVERY HERNIA REPAIR PROCEDURE: HISTORICAL HERNIA REPAIR/UMB OTHER SURGICAL HISTORY 09/13/2019 PROCEDURE: [place] ENDOMETRIAL BX CONJUNCT W/COLPOSCOPY OTHER SURGICAL HISTORY 10/05/2019 PROCEDURE: [place] EGD INTRMURAL NEEDLE ASPIR/BIOP ALTERED ANATOMY; COMMENT: Pancreatic Body Cyst, Needle Aspiration OTHER SURGICAL HISTORY 04/12/2010 PROCEDURE: [place] EGD INTRMURAL NEEDLE ASPIR/BIOP ALTERED ANATOMY COLONOSCOPY PROCEDURE: HISTORICAL COLONOSCOPY Medical History Medical History Date Comments Hypertension 01/10/2020 DX:Hypertension Hypercholesterolemia 01/10/2020 DX:Hypercho lesterolemia Migraines 01/10/2020 DX:Migraines Endometrial cancer, FIGO sta ge IIIC2 ([facility] V24, [facility] V28) 08/02/2019 DX:Endometrial cancer, FIGO stage IIIC2 ([facility]); COMMENT: 1. Neoadjuvant chemotherapy with carboplatin AUC 6, paclitaxel 175 mg/m2 every 21 days x 3 cycles from 11/07/2019 to 12/19/2019. CKD (chronic kidney disease) stage 3, GFR 30-59 ml/min ([facility] V24, [facility] V28) 01/21/2020 DX:CKD (chroni c kidney disease) stage 3, GFR 30-59 ml/min ([facility]) GERD (gastroesophageal reflux disease) 0 DX:GERD (gastroesophageal reflux disease) DM (diabetes mellitus), type 2 with renal complications ([facility] V24, [facility] V28) 01/10/2020 DX:DM (diabet es mellitus), type 2 with renal complications (HCC) 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 [address] [place] [phone] Celina Zelaya MD [address] [place] [address] Health Maintenance Due Date Last Done Comments [...] fective 2022-Present) Name:Vero Taylor Relation to Subscriber:Self Name:eVro Merlos Payer ID:[id number] Group ID:[id number] Type:Not on file Address: [place] [address] [place] [id number] Care Teams Bill Sorter Relationship Specialty Start Date End Date Caro Guevara MD [address] [place] [address] , [address] [facility] D/B/A: [facility] HEIDI Hicks PCP - General Internal Medicine 01/01/20
--- OUTSIDE RECORDS SUMMARY | 2024-12-11 09:04 | XMS_ITS | Clinical Summary ---
Author Organization [employer] [facility] Address [address] [place] [address] Care Team Providers Care Denture Processor Name Role Phone Unavailable Primary Care Provider Unavailabl e Allergies Active Allergy Reactions Criticality Noted Date Comments Naproxen 02/28/2020 Other reaction(s): GI Problems Other 11/09/2024 Aspirin-Pravastatin Pravastatin 02/28/2020 Other reaction(s): Hives / Skin Rash, Other (see comments) Medications Aspirin Low Dose 81 MG EC tablet 3 Active atorvastatin (Lipitor) 80 MG tablet Take 80 mg by mouth. 2 Active lisinopril 40 MG tablet Take 1 tablet by mouth. 9 Active omeprazole (PriLOSEC) [address] capsule 3 Active pioglitazone (Actos) 45 MG tablet Take 45 mg by mouth. 0 Active GNP Alcohol Swabs 70 % pads APPLY ONE PAD TOPICALLY TWICE DAILY 5 Active Blood Glucose Monitoring Suppl (FreeStyle Lite) w/Device kit USE DIRECTED TO CHECK BLOOD SUGAR LEVELS 5 Active Jardiance 10 MG Take 10 mg by mouth in the morning. Active FeroSul 325 (65 Fe) MG tablet Take 1 tablet by mouth Once per day. Active FREESTYLE LITE test strip USE DIRECTED TO CHECK BLOOD SUGAR LEVELS EVERY DAY Active GNP Pen [place] 32G X 6 MM misc USE ONE pen needle DAILY 5 Active Easy Comfort Lancets misc USE ONE LANCET TWICE DAILY 5 Active Lantus SoloStar 100 UNIT/ML pen INJECT 20 units SUBCUTANEOUSLY IN THE MORNING Active Active Problems Problem Noted Date Diagnosed Date Open fracture of tooth 09/05/2023 Pyogenic granuloma 07/18/2023 Severe dental caries 06/27/2023 Retained dental root 12/15/2022 Non-restorable tooth 12/15/2022 Encounters Date Type Department Care Team Description 11/02/2024 10:30 AM EDT Office Visit [facility] OPT[facility] [place] [address] Alli, Jasmyne, OD Diabetes mellitus without ophthalmic [...] Most Recently Relevant to Health Maintenance Insurance [facility] OPTIONS (O D-SNP) [place] [id number] [facility]
--- OUTSIDE RECORDS SUMMARY | 2024-12-11 09:04 | XMS_ITS | Clinical Summary ---
Author Organization [facility] Address [address] [place] [address] Care Team Providers Care Word Processing Machine Operator Name Role Phone Caro Wayne MD Primary [...] age to complete this topic Care Teams Word Processing Machine Operator Relationship Specialty Start Date End Date Caro Wayne MD [address] [facility] , [address] [facility]ician [facility] D/B/A: [facility] [place] Hicks [id number] PCP - General Internal Medicine 02/29/20
== END 2024-12-11 08:55 | disposition home or self-care (01) ==
LOC: HO.HMCH 08:39
PROVIDERS: PCP Internal Medicine; Visit Provider Internal Medicine
DX: E53.8 Deficiency of other specified B group vitamins (principal)

== ENCOUNTER → 2024-12-11 08:39 | Outpatient (BNVA) | payer OTHER, SELFPAY | PROVIDERS: PCP Internal Medicine; Visit Provider Internal Medicine | DX: E53.8 Deficiency of other specified B group vitamins (principal) | CPT/HCPCS: 96372; J3420 ==

== ENCOUNTER 2025-01-07 08:47 | Outpatient (AMB) | payer OTHER, SELFPAY ==
--- NOTE | 2025-01-07 09:00 | AM.OFFVISNUR ---
Intake Visit Reasons: B12 Shot Allergies naproxen Allergy (Intermediate, Verified 11/28/24 15:33) stomach upset pravastatin (PRAVASTATIN) Allergy (Intermediate, Verified 11/28/24 15:33) RASH Office Meds cyanocobalamin (vitamin B-12) 1,000 mcg/mL injection solution Performing Provider: Caro Guevara MD [facility] Administered by: Franci Gentile LPN on 01/07/25 08:55 Dose Route Admin Location Dispensed Lot Number Expiration Date [facility] Cotton Weigher Operator 1,000 mcg IM left deltoid 1 mL [id number] 02/06/27 [id number] [employer] Total Dispensed Waste 1 mL 0 % Assessment & Plan Assessment & Plan Orders: Orders AMB Vitamin B12 Injection Patient Supplied Today E53.8 - Deficiency of other specified B group vitamins Coding
--- OUTSIDE RECORDS SUMMARY | 2025-01-07 09:42 | XMS_ITS | Encounter Summary ---
Author Organization [employer] [facility] Address [address] [facility] [address] [place] [address] Care Team Providers Care Veterinary Bacteriologist Name Role Phone Unavailable Primary Care Provider Unavailabl e Reason for Visit * Reason Onset Date Comments cx due to illness 12/14/2023 Encounter Details Date Type Department Care Team ([facility] st Contact Info) Description 12/14/2023 Telephone [facility] ADULT D[facility] [address] [place], [place] [phone] Sergo Mark DDS [address], [place] [phone] cx due to illness Social History Tobacco [...]
--- OUTSIDE RECORDS SUMMARY | 2025-01-07 09:42 | XMS_ITS | Clinical Summary ---
Author Organization [employer] [facility] Address [address] [facility] [address] [place] [address] Care Team Providers Care Morning News Producer Name Role Phone Unavailable Primary Care Provider [...] SUGAR LEVELS EVERY DAY Active GNP Pen Comstock 32G X 6 MM misc USE ONE [...] Office Visit [facility] OPTOMETRY [facility] [place] [address] Alli, Jasmyne, OD Diabetes mellitus without ophthalmic [...] Use Screening 1965 Hepatitis C Screening 1971 RSV Patients and Patients Aged 60 years or older (1 - Risk 50-74 years 1-dose series) 2003 Zoster Vaccines (1 of 2) 2003 DTaP/Tdap/Td Vaccines (1 - Tdap) 07/03/2005 07/02/2005 Pneumococcal Vaccine: 50+ Years (2 of 2 - PCV) 01/07/2011 01/07/2010, 10/07/2005 Mammogram 03/16/2020 03/16/2018 Dental Oral Exam 06/15/2023 [...] Most Recently Relevant to Health Maintenance Insurance [facility] OPTIONS (O D-SNP) [place] [id number] [facility]
--- OUTSIDE RECORDS SUMMARY | 2025-01-07 09:42 | XMS_ITS | Clinical Summary ---
Author Organization [facility] Address [address] [place] [address] Care Team Providers Care Outsole Cutter Machine Name Role Phone Caro Wayne MD Primary [...] age to complete this topic Care Teams Outsole Cutter Machine Relationship Specialty Start Date End Date Caro Wayne MD [address] [facility] , [address] [facility] Physician Associ D/B/A: [facility] [place] Hicks [id number] PCP - General Internal Medicine 02/29/20
--- OUTSIDE RECORDS SUMMARY | 2025-01-07 09:42 | XMS_ITS | Clinical Summary ---
Author Organization [facility] Address [address] [place] [address] Phone Care Team Providers Care Filler And Trimmer Name Role Phone Caro Guevara MD Primary Care Provider [phone] Allergies Active Allergy Reactions Criticality Noted Date Comments Aspirin, Buffered-Pravastatin 11/01/2024 Naproxen 01/10/2020 Other reaction(s): GI Problems Pravastatin Other 02/28/2020 Other reaction(s): Hives / Skin Rash, Other (see comments) Pravastatin Sodium 01/10/2020 Medications alcohol swabs pads, medicated by Does not apply route. Active blood pressure monitor kit by Does not apply route. Active blood sugar diagnostic (BLOOD GLUCOSE TEST [facility] by In Vitro route. Active syringe, disposable, [...] kidney disease) stage 3, GFR 30-59 ml/min ([facility] [place], [facility] V28) 01/21/2020 Diverticulitis 01/21/2020 Overview (12/02/2023): Many years ago, did not require surgery GERD (gastroesophageal reflux disease) 0 DM (diabetes mellitus), type 2 with renal complications ([facility] [place], [facility] V28) 01/10/2020 Hypercholesterolemia 01/10/2020 Hypertension 01/10/2020 Migraines 01/10/2020 Severe obesity (BMI 35.0-39. 9) with comorbidity ([facility] V[facility], [facility] V28) 01/10/2020 Endometrial cancer, FIGO sta ge IIIC2 ([facility] [place], [facility] V28) 08/02/2019 Overview (12/02/2023): 1. Neoadjuvant chemotherapy [...] invasion Negative D. Pelvic washings Negative E. [place] lymph nodes positive 1/6 left pelvic, 0/8 right pelvic, 0/4 periaortic F. IHC for MMR proteins preserved. Encounters Date Type Department Care Team Description 11/01/2024 9:20 AM EDT Office Visit [address] [address] Celina Zelaya MD History of uterine cancer (Primary Dx) from Last 3 Months Surgical History Surgery Date Site/Laterality Comments CHOLECYSTECTOMY PROCEDURE: HISTORICAL CHOLECYSTECTOMY; COMMENT: Laparotomy SECTION PROCEDURE: HISTORICAL DELIVERY HERNIA REPAIR PROCEDURE: HISTORICAL HERNIA REPAIR/UMB OTHER SURGICAL HISTORY 09/13/2019 PROCEDURE: [place] ENDOMETRIAL BX CONJUNCT W/COLPOSCOPY OTHER SURGICAL HISTORY 10/05/2019 PROCEDURE: [place] EGD INTRMURAL NEEDLE ASPIR/BIOP ALTERED ANATOMY; COMMENT: Pancreatic Body Cyst, Needle Aspiration OTHER SURGICAL HISTORY 04/12/2010 PROCEDURE: [place] EGD INTRMURAL NEEDLE ASPIR/BIOP ALTERED ANATOMY COLONOSCOPY PROCEDURE: HISTORICAL COLONOSCOPY Medical History Medical History Date Comments Hypertension 01/10/2020 DX:Hypertension Hypercholesterolemia 01/10/2020 DX:Hypercho lesterolemia Migraines 01/10/2020 DX:Migraines Endometrial cancer, FIGO sta ge IIIC2 ([facility] V[facility], [facility] V28) 08/02/2019 DX:Endometrial cancer, FIGO stage IIIC2 ([facility]); COMMENT: 1. Neoadjuvant chemotherapy with carboplatin AUC 6, paclitaxel 175 mg/m2 every 21 days x 3 cycles from 11/07/2019 to 12/19/2019. CKD (chronic kidney disease) stage 3, GFR 30-59 ml/min ([facility] V24, [facility] V28) 01/21/2020 DX:CKD (chroni c kidney disease) stage 3, GFR 30-59 ml/min ([facility]) GERD (gastroesophageal reflux disease) 0 DX:GERD (gastroesophageal reflux disease) DM (diabetes mellitus), type 2 with renal complications ([facility] V24, [facility] V28) 01/10/2020 DX:DM (diabet es mellitus), type 2 with renal complications (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) 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 ([facility] V[facility], [facility] V28) 01/21/2020 DX: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 (HCC) Diverticulitis 01/21/2020 [...] Years Used Date Smoking Tobacco: Former Cigarettes 0 Q uit: 02/07/2002 Smokeless Tobacco: Former Alcohol [...] 9:00 AM EDT Office Visit [facility] [address] [place] [phone] Celina Zelaya MD [address] [place] [address] Health Maintenance Due Date Last Done Comments [...] ID:[id number] Group ID:[id number] Type:Not on file Address: [place] [address] [place] [id number] Care Teams Filler And Trimmer Relationship Specialty Start Date End Date Caro Guevara MD [address] [place] [address] , [address] [facility] Physician Associ D/B/A: [facility] HEIDI Hicks PCP - General Internal Medicine 01/01/20
== END 2025-01-07 08:59 | disposition home or self-care (01) ==
LOC: HO.HMCH 08:48
PROVIDERS: PCP Internal Medicine; Visit Provider Internal Medicine
DX: E53.8 Deficiency of other specified B group vitamins (principal)

== ENCOUNTER → 2025-01-07 08:47 | Outpatient (BNVA) | payer OTHER, SELFPAY | PROVIDERS: PCP Internal Medicine; Visit Provider Internal Medicine | DX: E53.8 Deficiency of other specified B group vitamins (principal) | CPT/HCPCS: 96372; J3420 ==